=== PATIENT | male | born 1970 | race Caucasian/White ===

== ENCOUNTER 2017-06-14 15:24 | Emergency (ER) | payer BC ==
[~2017-06-14] VITALS: Ht 175.3 cm; Wt 95.3 kg
[~2017-06-14 15:24] MED LIST: CETI5TAB5 PO; FLUO20CA34 PO; IND/25 PO
[2017-06-14 15:38] VITALS: TEMP 36.8; Ht 175.3 cm; Wt 95.3 kg
[2017-06-14] MEDS ORDERED: LIDOCAINE 1% BUFFERED INJ 5 ML VIAL INFIL ONE (16:00)
[2017-06-14] MEDS ORDERED: DIPHTHERIA/TETANUS/PERTUSSIS 0.5 ML SYR/VIAL IM. ONE (16:00)
[2017-06-14] MEDS ORDERED: BUPIVACAINE 0.5 % 5 MG/1 ML MPF 30ML VIAL INFIL ONE (16:00)
[2017-06-14] MEDS ORDERED: ALL300 PO (16:05)
[2017-06-14] MEDS ORDERED: LEVO75TA5 PO (16:05)
[2017-06-14] MEDS ORDERED: MELO7.5T5 PO (16:05)
[2017-06-14] MEDS ORDERED: CHOL2000 PO (16:07)
[2017-06-14] MEDS ORDERED: MELATAB2 PO (16:07)
[2017-06-14] MEDS ORDERED: CYAN500T PO (16:07)
[2017-06-14] MEDS ORDERED: MAGN400T6 PO (16:08)
[2017-06-14] MEDS ORDERED: CEFTRIAXONE SOD INJ 1 GM ADDVIAL IV STA (16:39)
--- NOTE | 2017-06-14 16:39 | EMERGENCY ROOM VISIT NOTE ---
History First contact with patient: 15:45 Chief Complaint: FOREIGNBODY ANY BODY PART Stated Complaint: BOARD THROUGH THUMB History of Present Illness The patient is a 47 year old male who presents to the Emergency Room with complaints of a piece of wood going through his left thumb prior to arrival. The patient was working with a circular table saw when a piece of wood flew off striking him in the left thumb. He has tried to remove many splinters from the area. He denies any significant pain. He does complain of some numbness and tingling towards the distal aspect of his left thumb. The patient is left- handed. He denies any other injuries. He knows his tetanus shot is not up-to- date. Review of Systems 6 system review negative. Please see pertinent positives in the history of present illness section. Past Medical/Surgical History Hypothyroidism, gout Social History Smoking Status: Never Smoker Alcohol Use: occasionally Current/Historical Medications Scheduled Allopurinol (Allopurinol), 300 MG PO DAILY Cephalexin Monohydrate (Keflex), 500 MG PO QID Cholecalciferol (Vitamin D3), 1 CAP PO DAILY Cyanocobalamin (Vitamin B-12), 500 MCG PO DAILY Levothyroxine Sodium (Levothyroxine Sodium), 75 MCG PO DAILY Magnesium Oxide (Mag-Ox), 400 MG PO DAILY Melatonin (Melatonin Maximum Strengt), 5 MG PO HS Meloxicam (Mobic), 7.5 MG PO DAILY Physical Exam Vital Signs Date Time Temp Pulse Resp B/P (MAP) Pulse Ox O2 Delivery O2 Flow Rate FiO2 06/14/17 18:20 75 16 101/76 98 06/14/17 17:23 60 20 115/76 97 Room Air 06/14/17 15:38 36.8 64 20 135/89 97 Room Air Physical Exam VITALS: Vitals are noted on the nurse's note and reviewed by myself. Vital signs stable. GENERAL: 47-year-old male, in no acute distress, nondiaphoretic, well-developed well-nourished. HEAD: Normocephalic atraumatic. EYES: Conjunctivae without injection, sclerae without icterus. Extraocular movements intact. MUSCULOSKELETAL: RIGHT HAND: There is a 1 cm macerated puncture wound noted to the dorsal aspect of the left thumb. There is a 0.5 macerated exit wound noted on the contralateral side. There is no active bleeding. Full flexion and extension of the thumb. Sensation is intact. Capillary refill is less than 2 seconds. NEURO: Patient was alert and oriented to person place and time. Normal sensation to touch. No focal neurological deficits. Medical Decision & Procedures ER Provider Diagnostic Interpretation: Thumb xray IMPRESSION: Mild soft tissue swelling without fracture. The above report was generated using voice recognition software. It may contain grammatical, syntax or spelling errors. Electronically signed by: Jayesh Huff M.D. Medications Administered Medications (Trade) Dose Ordered Sig/Morgan Route Start Time Stop Time Status Last Admin Dose Admin Diphtheria/ Pertussis/Tetanus Vacc (Adacel Inj) 0.5 ml ONCE ONCE IM. 06/14/17 16:00 06/14/17 16:01 DC 06/14/17 16:00 0.5 ML Ceftriaxone Sodium (Rocephin Inj) 1 gm NOW STAT IV 06/14/17 16:39 06/14/17 16:42 DC 06/14/17 17:22 1 GM Procedure The physician assistant field hockey coach student explored and cleansed the wound under my direct supervision in the following manner Using lidocaine and Marcaine, a digital block was performed. Sterile field was achieved. The area was thoroughly cleansed. Was copiously irrigated with normal saline under pressure. 1 0.5 cm piece of wood was extracted from the wound. The patient tolerated the procedure well. The wound was not closed. A dressing was applied. ED Course Patient was seen and examined Vital signs including blood pressure were reviewed medications list was verified with patient A saline lock was established Imaging was performed and reviewed The patient was ordered 1 g of Rocephin IV The wound was thoroughly cleansed. Please see my procedure note. The patient was given a bandage. He tolerated the procedure well. I reviewed discharge instructions the patient. They voiced understanding and had no further questions. Medical Decision Differential diagnosis: Foreign body, fracture, wound infection, laceration This patient is a 47-year-old male that presents to the emergency department after having a piece of wood to go through his left thumb. The patient is left- handed dominant. On exam he had an entry wound and exit wound in the thumb. He was neurovascularly intact. Flexion and extension was intact. X-rays were performed. No fractures were noted. The wound was explored. One small foreign body was extracted. The area was copiously irrigated. The patient was given 1 g of Rocephin for prophylactic antibiotics. The wound was left open to prevent infection. The patient was discharged home with a course of Keflex. He will watch for signs of infection, and have the wound rechecked in the next few days. He was comfortable with this plan This chart was completed in part utilizing [employer] Speech Voice Recognition software. Attempts were made to minimize the grammatical errors, random word insertions, pronoun errors and incomplete sentences. Any formal questions or concerns about the content, text or information contained within the body of this dictation should be directly addressed to the provider for clarification. Medication Reconcilliation Current Medication List: was personally reviewed by me Blood Pressure Screening Patient's blood pressure: Elevated blood pressure Blood pressure disposition: Elevated BP felt to be situational Impression Primary Impression: Puncture wound of hand with foreign body Departure Information Dispostion Home / Self-Care Condition GOOD Prescriptions Cephalexin Monohydrate (Keflex) 500 Mg Cap 500 MG PO QID for 7 Days, #28 CAP Prov: Sara Farfan PA-C 06/14/17 Referrals Zi Arce M.D. (MEDICAL) (PCP) Jose De Jesus Pedroza MD Patient Instructions My [facility] Additional Instructions You have been seen in the emergency department today for a possible foreign body in your left hand. The wound was thoroughly cleaned. Please take the ENTIRE course of Keflex as prescribed. This is to prevent infection. Please note that this wound is at high risk for infection. Please clean the hand twice daily with soap and water. It is okay to leave it open to air. You may take Tylenol and/or ibuprofen every 6 hours as needed for pain. Please have the wound rechecked in 3-5 days by a primary care physician. If there are any concerns, do not hesitate to call the hand surgeon. A number has been provided for Dr. Pedroza Please return to the emergency department with any new, worsening or concerning symptoms; especially, increased redness, swelling, pain or fever It was a pleasure participating in your care today
--- NOTE | 2017-06-14 16:45 | DIAGNOSTIC IMAGING REPORT ---
L FINGER(S) MIN 2 VIEWS ROUTINE HISTORY: 47 years-old Male L thumb injury acute pain of the left thumb status post trauma COMPARISON: None available TECHNIQUE: 3 views of the left thumb FINDINGS: Mild degenerative changes about the first carpal metacarpal joint. There is no acute fracture, dislocation or opaque foreign body. Mild soft tissue swelling of the first digit. IMPRESSION: Mild soft tissue swelling without fracture. The above report was generated using voice recognition software. It may contain grammatical, syntax or spelling errors. Electronically signed by: Jayesh Huff M.D. 06/14/2017 4:44 PM Dictated Date/Time: 06/14/2017 4:42 PM
[2017-06-14] MEDS ORDERED: CEPH500C PO (17:45)
[2017-06-14 18:20] VITALS: BP 101/76; PULSE 75; O2SAT 98
== END 2017-06-14 18:21 | disposition home or self-care (01) ==
LOC: C.EDB 15:26 → C.EDD 18:21
DX: S61.042A Puncture wound with foreign body of left thumb without damage to nail, initial encounter (principal); W22.8XXA Striking against or struck by other objects, initial encounter; Z79.899 Other long term (current) drug therapy

== ENCOUNTER 2018-07-23 18:40 | Inpatient (IN) ==
[2018-07-23] MEDS ORDERED: KETOROLAC 30 MG/ML VIAL IV ONE (18:54)
[2018-07-23] MEDS ORDERED: SODIUM CHLORIDE 0.9% 1000ML 1,000 ML IV SCH ×2 (19:00→23:21)
[2018-07-23 19:15] LABS: Basophils # (auto) 0.03 K/uL (0-0.2); Basophils % (auto) 0.3 %; Eosinophils # (auto) 0.16 K/uL (0-0.5); Eosinophils % (auto) 1.5 %; Hematocrit (blood only) 47.2 % (42-52); Hemoglobin 16.6 g/dL (14.0-18.0); Immature Granulocytes # (auto) 0.02 K/uL (0.00-0.02); Immature Granulocytes % (auto) 0.2 %; Lymphocytes # (auto) 1.24 K/uL (1.2-3.4); Lymphocytes % (auto) 11.3 %; Mean Corpuscular Hgb Conc 35.2 g/dL (32-36); Mean Corpuscular Volume 87.1 fL (80-100); Mean Platelet Volume 10.5 fL (7.4-10.4); Monocytes # (auto) 0.79 K/uL (0.11-0.59); Monocytes % (auto) 7.2 %; Neutrophils # (auto) 8.76 K/uL (1.4-6.5); Neutrophils % (auto) 79.5 %; Platelet Count 217 K/uL (130-400); RDW Coefficient of Variation 13.1 % (11.5-14.5); RDW Standard Deviation 41.7 fL (36.4-46.3); Red Blood Count 5.42 M/uL (4.7-6.1)
--- NOTE | 2018-07-23 19:25 | XRay Report ---
XR chest 1V portable CLINICAL HISTORY: 48 years-old Male presenting with left chest Pain. TECHNIQUE: Portable upright AP view of the chest was obtained. COMPARISON: Chest x-ray from 12/17/2011. FINDINGS: Atherosclerosis of the aortic arch. Cardiac silhouette normal in size. Ulnar vascular prominence. Mil dly low lung volumes. Vascular crowding at the lung bases. Minimal basilar opacities. No pleural effu joo or pneumothorax. Degenerative changes of the thoracic spine. Upper abdomen normal. IMPRESSION: 1. Mild volume overload. 2. Multilobular lung volumes with hypoventilatory changes and minimal bibasilar atelectasis. Electronically signed by: Michael Mendoza M.D. 07/23/2018 7:23 PM
[2018-07-23 19:31] LABS: Alanine Aminotransferase 27 U/L (12-78); Albumin Level 4.5 gm/dl (3.4-5.0); Aspartate Aminotransferase 19 U/L (15-37); BUN Creatinine Ratio 14.5 (10-20); Blood Urea Nitrogen 18 mg/dl (7-18); Calcium 9.4 mg/dl (8.5-10.1); Carbon Dioxide 30 mmol/L (21-32); Chloride 101 mmol/L (98-107); Creatinine Clr Calc Pharmacy 81.2 ml/min; Glucose 95 mg/dl (70-99); Potassium 4.2 mmol/L (3.5-5.1); Sodium 139 mmol/L (136-145)
[2018-07-23 19:36] LABS: Albumin Globulin Ratio 1.2 (0.9-2); Alkaline Phosphatase 61 U/L (45-117); Bilirubin,Total 0.6 mg/dl (0.2-1); Globulin 3.7 gm/dl (2.5-4.0); Total Protein 8.2 gm/dl (6.4-8.2); Troponin I < 0.015 ng/ml (0-0.045)
[2018-07-23] MEDS ORDERED: SODIUM CHLORIDE 0.9% 1000ML 2,000 ML IV ONE (19:44)
[2018-07-23] MEDS ORDERED: ACETAMINOPHEN 500 MG TAB PO STA (19:44)
[2018-07-23] MEDS ORDERED: OPTIRAY 320 125ml IV PRN (19:44)
--- NOTE | 2018-07-23 20:06 | CT Scan Report ---
CT angio chest PE protocol CLINICAL HISTORY: 48 years-old Male presenting with left-sided chest pain, pleuritic chest pain, diff iculty breathing. TECHNIQUE: Multidetector CT angiography of the chest was performed after administration of intravenou s contrast. 3-D volumetric and/or maximum intensity projection (MIP) images were subsequently reconst ructed for review. IV contrast: 119 mL of Optiray 320. One or more dose lowering techniques were used consistent with the principles of ALARA (as low as reasonably achievable), including automatic expos ure control, mA or kV adjustment to individual patient size, and/or use of iterative reconstruction. COMPARISON: Contrast-enhanced CT chest from 04/10/2018. CT DOSE (mGy.cm): The estimated cumulative dose is 440.32 mGy.cm. FINDINGS: Computer Peripheral Equipment Operator topogram: Unremarkable. Pulmonary vasculature: The study is suboptimal for the assessment of the pulmonary vascular tree secondary to timing of the contrast bolus and respiratory motion artifact. No filling defect within the pulmonary arteries to franco ggest embolus. Streak artifact in the right upper lobe pulmonary artery results in a pseudofilling de fect. Main pulmonary artery is not enlarged. No flattening of the interventricular septum. No intraca rdiac filling defect. No reflux of contrast into the hepatic veins. Remaining chest: Soft tissues: Normal thyroid. Infiltration of the subcutaneous tissue of the right axilla, noticeably asymmetric in comparison to the left. No axillary, supraclavicular, mediastinal, or hilar lymphadeno juan c. Normal aorta. Normal heart size. No pericardial or pleural effusion. Upper abdomen normal. Lungs and airways: No pneumothorax. Central airways patent. Pulmonary arteries are not significantly enlarged relative to adjacent bronchi. No interlobular septal thickening. Multifocal solid poorly mar ginated moderate nodules (over 10). The largest is located in the posterior segment of the left upper lobe and is cavitary. This cavitary lesion measures 10 mm in diameter with a wall thickness of 3 mm. There is faint groundglass opacity surrounding many of the larger lesions. These affect both upper a nd lower lobes sparing the right middle lobe. Musculoskeletal: Degenerative changes of the spine. IMPRESSION: 1. Multiple solid poorly marginated nodules (at least 10) scattered throughout the lungs the largest nodule in the left upper lobe, which is cavitary. This is new from prior exam. The appearance raises concern for septic emboli, cavitary metastatic disease, fungal infection, Tammy's granulomatosis, or rheumatoid nodules among other diagnostic considerations. 2. No evidence of pulmonary emboli. 3. Infiltration of the right axilla raises concern for cellulitis. Correlate clinically. Electronically signed by: Michael Mendoza M.D. 07/23/2018 8:03 PM
[2018-07-23] MEDS ORDERED: VANCOMYCIN CONSULT ACTIVE PRN ×2 (20:13→23:21)
[2018-07-23] MEDS ORDERED: VANCOMYCIN HCL 2,250 MG in SODIUM CHLORIDE 0.9% 500 ML IV ONE (20:13)
[2018-07-23] MEDS ORDERED: CEFEPIME 1,000 MG in SYRINGE 0 ML IV STA (20:13)
--- NOTE | 2018-07-23 21:19 | History & Physical Report ---
Date of Service July 23, 2018 Assessment & Plan (1) Cavitary lesion of lung: (2) Chest pain: This is a 48 yr old M who has a significant PMH of hypothyroidism, depression, anx, gout who presents to [facility] ED secondary to chest pain that began at 3 pm. Chest pain pleuritic in nature, improved with IV APAP and Toradol CTA Chest concerning for Multiple solid poorly marginated nodules (at least 10) scattered throughout the lungs the largest nodule in the left upper lobe, which is cavitary. This is new from prior exam. The appearance raises concern for septic emboli, cavitary metastatic disease, fungal infection, Tammy's granulomatosis, or rheumatoid nodules among other diagnostic considerations. Troponin negative and unremarkable CMP and Lipase WBC elevated at 11.00 Pt spiked fever of 38.9, but does not meet criteria for SIRS with HR 88, WBC 11k Blood cultures were drawn He received broad-spectrum IV antibiotics while in ED including IV vancomycin and cefepime Received IVF Ddx including but not limited to: lung abscess, bacteremia, endocarditis, septic embolic, TB, Vasculitis, [place], Rheumatologic condition, fungal infection admit to telemetry continue broad spectrum antibiotics with IV vancomycin and Zosyn Obtain MRSA swab Await blood culture Consult pulmonology given cavitary lesion Placed on airborne precautions until TB ruled out -given fever, cough, 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 Check Lactic acid/procalcitonin obtain echocardiogram, r/o endocarditis IV toradol 30mg q6hr prn pain x 48hr (3) Carbuncle of right axilla: Continue IV antibiotics as above await blood cultures/MRSA swab (4) Hypothyroidism: Pt has not taken levothyroxine for several weeks uncertain dosage of medication obtain TSH with t4 (5) DVT prophylaxis: SCDS and ambulation for now reassess on daily basis need for chemical prophylaxis Disposition: D/C to home when able Follow up: Belen Uribe PA-C upon discharge Patient was seen and examined in collaboration with Dr. Monzon, please see addendum Starting 07/24/18 patient will be under the care of Dr. Chavis History of Present Illness Chief Complaint: Chest pain since 3pm Primary Care Provider: Belen Uribe PA-C This is a 48 yr old M who has a significant PMH of hypothyroidism, depression, anx, gout who presents to [facility] ED secondary to chest pain that began at 3 pm. Patient was at work when symptoms started. Abrupt onset of sharp left sided chest pain that radiated to L axillary region, sharp, 10/10, worse with deep breath and cough, improved with ASA and ibuprofen. Never experienced in past. Current pain 3/10. Further complains of feeling feverish, chills, lightheaded, dizzy, non productive cough that started today. He elicits dizziness and lightheaded are not, "abnormal for me." Overall past week has just not been feeling well, general malaise, attributed to working alot. Further complains of lesions in arm pit that are red and painful. Noticed yesterday. Hx of similar lesion in December, R jameel, tx with doxycycline and resolved. +hx of MRSA. Denies sweats, night sweats, weight loss, hemoptysis, sob at rest, shelley, n/v/d, change in bowel or urinary habits. Appetite has been normal. 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 Last travel was to [place] in March. He does not take any of his medications, stopped them few months ago including his thyroid medication. Denies FH of rheumatologic conditions, Lung disease, Lung cancer. Denies personal hx of drug abuse or IVDA. Allergies Allergy/AdvReac Type Severity Reaction Status Date / Time Penicillins Allergy Unknown ` Verified 07/23/18 20:57 Home Medications Home Medications Medication Instructions Recorded Confirmed Type levothyroxine 50 mcg PO DAILY 07/23/18 07/23/18 History Past Med/Surg History Medical History Cavitary lesion of lung (Acute) Depression (Chronic) Anxiety (Chronic) Hypothyroidism (Chronic) Gout (Chronic) Surgical History History of tonsillectomy and adenoidectomy (Chronic) History of bilateral tympanoplasty (Chronic) Family History Other Unknown family medical history Social History Preferred Language: Estonian Communication Ability: Effective Hangar Attendant Required: No Beliefs That Will Affect Care: None marital status: Single marital status details: Engaged Current Living Situation: Other Current Living Situation Comment: Lives with meli current occupational status: employed current occupation: [employer] Feels Safe at Home: Yes Safety Concerns: Feels Safe At This Time Smoking Status: Never smoker Tobacco Type: smokeless tobacco Hx Alcohol Use: Yes Alcohol type: beer Alcohol Intake Frequency Comment: "Worse case is a case of beer a week, last drink yesterday 2 beers" Hx Substance Use: No Review of Systems Review of Systems: As noted per HPI, 10 systems reviewed and negative unless noted above. Physical Exam Physical Exam: Gen: WD/WN, M, Flushed, appears in pain, NAD, sitting up in bed, blunted affect, conversing easily Head: Normocephalic, Atraumatic Eyes: Sclera normal, no conjunctival injection, PERRLA, EOMI ENT: Gross hearing intact, normal pharynx, mucous membranes moist Neck: supple, no adenopathy, No JVD, no bruit, Resp: Clear to auscultation b/l, no wheeze, rales, rhonchi. Normal insp/exp effort, no accessory muscle use CV: Regular rate, regular rhythm, 1/6 MELISSA heard RUSB, no rub, gallop, or ectopy Abd: +BS x 4, soft, nontender, nondistended Musculoskeletal: moves extremities active rom x 4, strength intact, good supervisor powdered sugar strength Extremities: No edema bilaterally Skin: warm, moist, 2 papular erythematous lesions to R axilla, tender to palpation, firm, no adenopathy noted, no rash, negative turgor, cap refill < 2sec Neuro: Alert and oriented x 3, speech normal, good mood/affect, cran nerve 2-12 intact grossly : deferred Results & Data Vital Signs (Past 12 Hours) Vital Signs Temp Pulse Pulse Resp BP BP Pulse Ox 07/23/18 20:02 90 20 116/68 95 07/23/18 19:34 97 07/23/18 19:33 38.9 C H 07/23/18 18:42 37.7 C H 91 H 22 151/93 H 91 Laboratory Results Short CBC 07/23/18 Range/Units 19:05 WBC 11.00 H (4.8-10.8) K/uL Hgb 16.6 (14.0-18.0) g/dL Hct 47.2 (42-52) % Plt Count 217 (130-400) K/uL BMP 07/23/18 19:05 Sodium 139 Potassium 4.2 Chloride 101 Carbon Dioxide 30 BUN 18 Creatinine 1.23 Glucose 95 Calcium 9.4 Cardiac Enzymes 07/23/18 Range/Units 19:05 Troponin I < 0.015 (0-0.045) ng/ml Liver Function 07/23/18 Range/Units 19:05 Total Bilirubin 0.6 (0.2-1) mg/dl AST 19 (15-37) U/L ALT 27 (12-78) U/L Alkaline Phosphatase 61 (45-117) U/L Albumin 4.5 (3.4-5.0) gm/dl Diagnostic Findings Chest CTA: IMPRESSION: 1. Multiple solid poorly marginated nodules (at least 10) scattered throughout the lungs the largest nodule in the left upper lobe, which is cavitary. This is new from prior exam. The appearance raises concern for septic emboli, cavitary metastatic disease, fungal infection, Tammy's granulomatosis, or rheumatoid nodules among other diagnostic considerations. 2. No evidence of pulmonary emboli. 3. Infiltration of the right axilla raises concern for cellulitis. Correlate clinically. CXR: IMPRESSION: 1. Multiple solid poorly marginated nodules (at least 10) scattered throughout the lungs the largest nodule in the left upper lobe, which is cavitary. This is new from prior exam. The appearance raises concern for septic emboli, cavitary metastatic disease, fungal infection, Tammy's granulomatosis, or rheumatoid nodules among other diagnostic considerations. 2. No evidence of pulmonary emboli. 3. Infiltration of the right axilla raises concern for cellulitis. Correlate clinically. Medications Administered Sodium Chloride (Nss 1000ml) 2,000 mls @ 999 mls/hr IV .Q2H1M ONE Stop: 07/23/18 21:44 Last Admin: 07/23/18 19:59 Dose: 999 mls/hr Documented by: [id number] Ioversol (Optiray 320 125ml) 119 ml IV ONCE PRN PRN Reason: Interaction Checking Stop: 07/27/18 19:43 Last Admin: 07/23/18 19:45 Dose: 119 ml Documented by: [id number] Discontinued Medications Acetaminophen (Tylenol) 1,000 mg PO NOW STA Stop: 07/23/18 19:45 Last Admin: 07/23/18 19:57 Dose: 1,000 mg Documented by: [id number] Sodium Chloride (Nss 1000ml) 1,000 mls @ 999 mls/hr IV .Q1H1M HÉCTOR Stop: 07/23/18 20:00 Last Infusion: 07/23/18 20:46 Dose: 0 mls/hr Documented by: [id number] Admin: 07/23/18 19:13 Dose: 999 mls/hr Documented by: [id number] Ketorolac Tromethamine (Toradol) 30 mg IV NOW ONE Stop: 07/23/18 18:55 Last Admin: 07/23/18 19:12 Dose: 30 mg Documented by: [id number] Code Status & VTE Plan Code Status Full Code VTE Prophylaxis Plan VTE Prophylaxis will be ordered: Yes Supervising Physician Co-Signing Physician Notes Care coordinated with Lewis Barrett PA-C. Agree with above note. Patient seen and examined. Please refer to her notes for full details. Vital signs reviewed. Physical exam: General exam: Alert and oriented. Not in acute distress. CVS: S1 and S2 heard, regular rate and rhythm, no murmurs. RS: Clear to auscultation, no wheezing or crackles. ABD: Soft, bowel sounds present, nontender, no distention. SERVICING MANAGER: Nonfocal. EXT: No edema, no erythema. Labs: Reviewed. Assessment and plan:48M presents with pleuritic like chest pain, spiking temp in Er, Mild elevation of WBC, Has pimple like lesions in right axilla, hx of MRSA infection in the past, CT chest showing multiple cavitary nodules. Chest pain Multiple cavitary nodules carbuncles in right axilla hx of mrsa infections septic emboli? Jerrica's granulomatosis? no nasal blled or hematuria Fungal infection? Recent ct scan in april was unremarkable empirically started on iv vanco and cefepime will follow cultures Will check, RF, ANCA, KEVIN levels Pulmonary consult Other diagnosis and plan of care as per []. Brad power MD.
[2018-07-23] MEDS ORDERED: POLYETHYLENE (MIRALAX) 17 GM PACK PO PRN (23:21)
[2018-07-23] MEDS ORDERED: ONDANSETRON INJ 2 MG/ML 2 ML VIAL IV PRN (23:21)
[2018-07-23] MEDS ORDERED: MAGNESIUM HYDROXIDE SUSP 30 ML UDC PO PRN (23:21)
[2018-07-23] MEDS ORDERED: ALUMINUM/MAGNESIUM SUSP 30 ML UDC PO PRN (23:21)
--- NOTE | 2018-07-23 23:27 | Emergency Department Note ---
Entered by Di Nunez acting as a scribe for Keanu Canales DO History of Present Illness General Chief complaint: Chest Pain Stated complaint: SHARP PAIN IN LEFT SIDE, CHEST PAIN, LIGHT HEADED Source: patient History of Present Illness Provider complaint: chest pain Onset (ago): hour(s) 6 Location: chest and left Radiation: distal Pain Consistency: + other (worsening) Maximum Pain Intensity: 8 Relieved By: + rest Exacerbated By: + other (breathing) Associated symptoms: + other (+lightheaded, -problems urinating, -diarrhea); no nausea/vomiting The patient is a 48 year old male who presents to the Emergency Room with compla ints of worsening chest pain. The patient states that he has had pain in his chest that has radiated to his left shoulder. He reports that he pain started at 1400 today while he was just talking. The patient notes that he has not had any prior similar episodes. He states that deep breathing worsens the pain. He states that sitting down alleviates the pain mildly. He reports that he is lightheaded, but denies any symptoms of nausea, vomiting, or diarrhea. The patient denies any problems urinating. He states that he does not smoke. He denies any recent travel. He denies any drug use. Patient does also complain of pain in his right axilla and 2 areas of erythema. History of MRSA. Home Medications Home Medications Medication Instructions Recorded Confirmed Type levothyroxine 50 mcg PO DAILY 07/23/18 07/23/18 History Allergies Allergy/AdvReac Type Severity Reaction Status Date / Time Penicillins Allergy Unknown ` Verified 07/23/18 20:57 Past Med/Surg History Medical History Cavitary lesion of lung (Acute) Depression (Chronic) Anxiety (Chronic) Hypothyroidism (Chronic) Gout (Chronic) Surgical History History of tonsillectomy and adenoidectomy (Chronic) History of bilateral tympanoplasty (Chronic) Family History Other Unknown family medical history Social History Preferred Language: Malaysian Communication Ability: Effective marital status: Single marital status details: Engaged Current Living Situation: Other Current Living Situation Comment: Lives with meli current occupational status: employed current occupation: [employer] Feels Safe at Home: Yes Smoking Status: Current every day smoker Tobacco Type: smokeless tobacco Hx Alcohol Use: Yes Alcohol type: beer Alcohol Intake Frequency Comment: "Worse case is a case of beer a week, last drink yesterday 2 beers" Hx Substance Use: No Review of Systems See HPI for pertinent positives & negatives. and A total of 10 systems reviewed and were otherwise negative Physical Exam Vital Signs Vital Signs - 24 hr 07/23/18 18:42 07/23/18 18:57 07/23/18 18:59 Temperature 37.7 C H Temperature Source Oral Sepsis Recent Fever Within 48 Hours No Sepsis New/Unexplained Change in Mental Status No Sepsis Action Taken by Nursing No Action Required Pulse Rate 91 H 90 88 Pulse Rate [Apical] Pulse Rate from SpO2 Sensor 90 88 Respiratory Rate 22 24 41 H Blood Pressure 151/93 H 144/86 H Blood Pressure [Left Arm] Blood Pressure Mean 112 105 Blood Pressure Mean [Left Arm] Pulse Oximetry 91 96 97 Oxygen Delivery Method Room Air 07/23/18 19:00 07/23/18 19:10 07/23/18 19:20 Temperature Temperature Source Sepsis Recent Fever Within 48 Hours Sepsis New/Unexplained Change in Mental Status Sepsis Action Taken by Nursing Pulse Rate 88 93 H 91 H Pulse Rate [Apical] Pulse Rate from SpO2 Sensor 88 93 H 90 Respiratory Rate 41 H 29 H 38 H Blood Pressure 140/90 Blood Pressure [Left Arm] Blood Pressure Mean 106 Blood Pressure Mean [Left Arm] Pulse Oximetry 97 94 97 Oxygen Delivery Method 07/23/18 19:30 07/23/18 19:33 07/23/18 19:34 Temperature 38.9 C H Temperature Source Oral Sepsis Recent Fever Within 48 Hours Sepsis New/Unexplained Change in Mental Status Sepsis Action Taken by Nursing Pulse Rate 89 Pulse Rate [Apical] Pulse Rate from SpO2 Sensor 88 Respiratory Rate 19 Blood Pressure 140/76 Blood Pressure [Left Arm] Blood Pressure Mean 97 Blood Pressure Mean [Left Arm] Pulse Oximetry 97 97 Oxygen Delivery Method Room Air 07/23/18 19:52 07/23/18 20:00 07/23/18 20:02 Temperature Temperature Source Sepsis Recent Fever Within 48 Hours Sepsis New/Unexplained Change in Mental Status Sepsis Action Taken by Nursing Pulse Rate 89 92 H Pulse Rate [Apical] 90 Pulse Rate from SpO2 Sensor 90 91 H Respiratory Rate 24 27 H 20 Blood Pressure 132/76 116/68 Blood Pressure [Left Arm] 116/68 Blood Pressure Mean 94 84 Blood Pressure Mean [Left Arm] 84 Pulse Oximetry 95 96 95 Oxygen Delivery Method Room Air 07/23/18 20:10 07/23/18 20:20 07/23/18 20:30 Temperature Temperature Source Sepsis Recent Fever Within 48 Hours Sepsis New/Unexplained Change in Mental Status Sepsis Action Taken by Nursing Pulse Rate 90 89 90 Pulse Rate [Apical] Pulse Rate from SpO2 Sensor 89 91 H 91 H Respiratory Rate 25 H 24 25 H Blood Pressure Blood Pressure [Left Arm] Blood Pressure Mean Blood Pressure Mean [Left Arm] Pulse Oximetry 97 96 96 Oxygen Delivery Method 07/23/18 20:40 Temperature Temperature Source Sepsis Recent Fever Within 48 Hours Sepsis New/Unexplained Change in Mental Status Sepsis Action Taken by Nursing Pulse Rate 94 H Pulse Rate [Apical] Pulse Rate from SpO2 Sensor Respiratory Rate 27 H Blood Pressure Blood Pressure [Left Arm] Blood Pressure Mean Blood Pressure Mean [Left Arm] Pulse Oximetry Oxygen Delivery Method GENERAL: sitting up in bed, moderately distress, holding chest, non-toxic EYE EXAM: normal conjunctiva, PERRL and EOM's grossly intact OROPHARYNX: no exudate, no erythema, lips, buccal mucosa, and tongue normal and mucous membranes are moist NECK: supple, no nuchal rigidity, no adenopathy, non-tender LUNGS: Clear to auscultation. Normal chest wall mechanics HEART: acute reproducible chest wall pain, no murmurs, S1 normal and S2 normal ABDOMEN: abdomen soft, non-tender, normo-active bowel sounds, no masses, no rebound or guarding. BACK: Back is symmetrical on inspection and there is no deformity, no midline tenderness, no CVA tenderness. SKIN: no rashes and no bruising UPPER EXTREMITIES: right axilla 2 areas of erythema and induration LOWER EXTREMITIES: No pitting edema. NEURO EXAM: Normal sensorium, cranial nerves II-XII grossly intact, normal speech, no gross weakness of arms, no gross weakness of legs. Course 1846: The patient was evaluated in room C6, and a complete history and physical examination were performed. 2020: I reviewed the patient's case with Dr. Shahrzad Koch Hospitalist. He will evaluate the patient for further management. Consultations [facility]: [facility]:20 Administered Medications Ioversol (Optiray 320 125ml) 119 ml IV ONCE PRN PRN Reason: Interaction Checking Stop: 07/27/18 19:43 Last Admin: 07/23/18 19:45 Dose: 119 ml Documented by: [id number] Discontinued Medications Acetaminophen (Tylenol) 1,000 mg PO NOW STA Stop: 07/23/18 19:45 Last Admin: 07/23/18 19:57 Dose: 1,000 mg Documented by: [id number] Sodium Chloride (Nss 1000ml) 1,000 mls @ 999 mls/hr IV .Q1H1M HÉCTOR Stop: 07/23/18 20:00 Last Infusion: 07/23/18 20:46 Dose: 0 mls/hr Documented by: [id number] Admin: 07/23/18 19:13 Dose: 999 mls/hr Documented by: [id number] Sodium Chloride (Nss 1000ml) 2,000 mls @ 999 mls/hr IV .Q2H1M ONE Stop: 07/23/18 21:44 Last Admin: 07/23/18 19:59 Dose: 999 mls/hr Documented by: [id number] Cefepime HCl 1,000 mg/ Syringe 11.3 mls @ 5.5 mls/min IV NOW STA; Protocol Stop: 07/23/18 20:15 Last Admin: 07/23/18 21:30 Dose: 5.5 mls/min Documented by: [id number] Vancomycin HCl 2,250 mg/ (Sodium Chloride) 545 mls @ 200 mls/hr IV NOW ONE; Protocol Stop: 07/23/18 22:56 Last Admin: 07/23/18 21:30 Dose: 200 mls/hr Documented by: [id number] Ketorolac Tromethamine (Toradol) 30 mg IV NOW ONE Stop: 07/23/18 18:55 Last Admin: 07/23/18 19:12 Dose: 30 mg Documented by: [id number] Medical Decision Making Differential Diagnosis Differential diagnosis: Etiologies such as cardiac ischemia, aortic dissection, pulmonary embolism, pneumonia, pneumothorax, musculoskeletal, infections, pericarditis, myocarditis, esophageal rupture, gastrointestinal, as well as others were entertained. Medical Records Attestation: I reviewed the patient's medical records. Home Medications Current Medication List: was personally reviewed by me Laboratory Data Attestation: I reviewed the patient's lab results. Result diagrams: 07/23/18 19:05 07/23/18 19:05 Lab Results 07/23/18 07/23/18 07/23/18 Range/Units 19:05 19:05 19:05 WBC 11.00 H (4.8-10.8) K/uL RBC 5.42 (4.7-6.1) M/uL Hgb 16.6 (14.0-18.0) g/dL Hct 47.2 (42-52) % MCV 87.1 (80-100) fL MCH 30.6 (25-34) pg MCHC 35.2 (32-36) g/dL RDW Std Deviation 41.7 (36.4-46.3) fL RDW Coeff of Richar 13.1 (11.5-14.5) % Plt Count 217 (130-400) K/uL MPV 10.5 H (7.4-10.4) fL Immature Gran % (Auto) 0.2 % Neut % (Auto) 79.5 % Lymph % (Auto) 11.3 % Orange % (Auto) 7.2 % Eos % (Auto) 1.5 % Baso % (Auto) 0.3 % Immature Gran # (Auto) 0.02 (0.00-0.02) K/uL Neut # (Auto) 8.76 H (1.4-6.5) K/uL Lymph # (Auto) 1.24 (1.2-3.4) K/uL Orange # (Auto) 0.79 H (0.11-0.59) K/uL Eos # (Auto) 0.16 (0-0.5) K/uL Baso # (Auto) 0.03 (0-0.2) K/uL Sodium 139 (136-145) mmol/L Potassium 4.2 (3.5-5.1) mmol/L Chloride 101 (98-107) mmol/L Carbon Dioxide 30 (21-32) mmol/L Anion Gap 9.0 (3-11) BUN 18 (7-18) mg/dl Creatinine 1.23 (0.6-1.4) mg/dl Est Cr Clr Drug Dosing 81.2 ml/min Est GFR ( Amer) 80.0 Est GFR (Non-Af Amer) 69.0 BUN/Creatinine Ratio 14.5 (10-20) Glucose 95 (70-99) mg/dl Calcium 9.4 (8.5-10.1) mg/dl Total Bilirubin 0.6 (0.2-1) mg/dl AST 19 (15-37) U/L ALT 27 (12-78) U/L Alkaline Phosphatase 61 (45-117) U/L Troponin I < 0.015 (0-0.045) ng/ml Total Protein 8.2 (6.4-8.2) gm/dl Albumin 4.5 (3.4-5.0) gm/dl Globulin 3.7 (2.5-4.0) gm/dl Albumin/Globulin Ratio 1.2 (0.9-2) Lipase 200 (73-393) U/L Procalcitonin < 0.05 (0-0.5) ng/ml Imaging Data Radiologist's Impression: Radiology results as stated below per my review and the radiologist's interpretation: XR chest 1V portable CLINICAL HISTORY: 48 years-old Male presenting with left chest Pain. TECHNIQUE: Portable upright AP view of the chest was obtained. COMPARISON: Chest x-ray from 12/17/2011. FINDINGS: Atherosclerosis of the aortic arch. Cardiac silhouette normal in size. Ulnar vascular prominence. Mildly low lung volumes. Vascular crowding at the lung bases. Minimal basilar opacities. No pleural effusion or pneumothorax. Degenerative changes of the thoracic spine. Upper abdomen normal. IMPRESSION: 1. Mild volume overload. 2. Multilobular lung volumes with hypoventilatory changes and minimal bibasilar atelectasis. Electronically signed by: Michael Mendoza M.D. 07/23/2018 7:[address] angio chest PE protocol CLINICAL HISTORY: 48 years-old Male presenting with left-sided chest pain, pleuritic chest pain, difficulty breathing. TECHNIQUE: Multidetector CT angiography of the chest was performed after administration of intravenous contrast. 3-D volumetric and/or maximum intensity projection (MIP) images were subsequently reconstructed for review. IV contrast: 119 mL of Optiray 320. One or more dose lowering techniques were used consistent with the principles of ALARA (as low as reasonably achievable), including automatic exposure control, mA or kV adjustment to individual patient size, and/or use of iterative reconstruction. COMPARISON: Contrast-enhanced CT chest from 04/10/2018. CT DOSE (mGy.cm): The estimated cumulative dose is 440.32 mGy.cm. FINDINGS: Signal Manager topogram: Unremarkable. Pulmonary vasculature: The study is suboptimal for the assessment of the pulmonary vascular tree secondary to timing of the contrast bolus and respiratory motion artifact. No filling defect within the pulmonary arteries to suggest embolus. Streak artifact in the right upper lobe pulmonary artery results in a pseudofilling defect. Main pulmonary artery is not enlarged. No flattening of the interventricular septum. No intracardiac filling defect. No reflux of contrast into the hepatic veins. Remaining chest: Soft tissues: Normal thyroid. Infiltration of the subcutaneous tissue of the right axilla, noticeably asymmetric in comparison to the left. No axillary, supraclavicular, mediastinal, or hilar lymphadenopathy. Normal aorta. Normal heart size. No pericardial or pleural effusion. Upper abdomen normal. Lungs and airways: No pneumothorax. Central airways patent. Pulmonary arteries are not significantly enlarged relative to adjacent bronchi. No interlobular septal thickening. Multifocal solid poorly marginated moderate nodules (over 10). The largest is located in the posterior segment of the left upper lobe and is cavitary. This cavitary lesion measures 10 mm in diameter with a wall thickness of 3 mm. There is faint groundglass opacity surrounding many of the larger lesions. These affect both upper and lower lobes sparing the right middle lobe. Musculoskeletal: Degenerative changes of the spine. IMPRESSION: 1. Multiple solid poorly marginated nodules (at least 10) scattered throughout the lungs the largest nodule in the left upper lobe, which is cavitary. This is new from prior exam. The appearance raises concern for septic emboli, cavitary metastatic disease, fungal infection, Tammy's granulomatosis, or rheumatoid nodules among other diagnostic considerations. 2. No evidence of pulmonary emboli. 3. Infiltration of the right axilla raises concern for cellulitis. Correlate clinically. Electronically signed by: Michael Mendoza M.D. 07/23/2018 8:03 PM ECG Data Attestation: I personally reviewed and interpreted this ECG as follows: Indication: chest pain Rate (beats per minute): 89 Rhythm: sinus rhythm Findings: + other (normal axis); no PVC Blood Pressure Blood Pressure Findings: Normal blood pressure MDM Narrative Patient is a 48-year-old who presents the ER for sharp left-sided chest pain which started around 2 PM. He notes he cannot take a deep breath due to the severe pain. He also admits to fevers and chills. He was febrile at 38.9 when he got here. He had a mild leukocytosis of 11,000. No significant anemia. BMP along with LFTs lactic acid troponin and bilirubin was unremarkable. Chest x- ray was unremarkable along with EKG. CT PE was performed and showed no dissection but question septic emboli with him being febrile patient was covered with IV antibiotics. Patient was given IV cefepime and vancomycin. Discussed with hospitalist patient was admitted for further work-up. Impression & Plan Septic pulmonary embolism, Cavitary lesion of lung, Chest pain, Abscess Discharge Plan Visit Data *Final* Discharge Date/Time: 07/23/18 23:01 Chief Complaint: Chest Pain Stated Complaint: SHARP PAIN IN LEFT SIDE, CHEST PAIN, LIGHT HEADED ED Provider: Keanu Canales Discharge Problem: Septic pulmonary embolism, Cavitary lesion of lung, Chest pain, Abscess Patient Disposition: Admitted As Inpatient Discharge Instructions Interventions: ED Discharge Assessment Last Done: 07/23/18 23:01 The zuleikaibe's documentation has been prepared under my direction and personally reviewed by me in its entirety. I confirm that the note above accurately reflects all work, treatment, procedures, and medical decision making performed by me.
[2018-07-24] MEDS ORDERED: CEFEPIME CONSULT ACTIVE PRN ×2 (01:34→23:21)
[2018-07-24] MEDS: KETOROLAC 30 MG/ML VIAL IV PRN ×2 (05:03→14:25)
[2018-07-24] MEDS: ACETAMINOPHEN 325 MG TAB PO PRN ×3 (05:07→20:37)
[2018-07-24] MEDS: CEFEPIME 1,000 MG in SYRINGE 0 ML IV SCH ×3 (05:08→22:58)
[2018-07-24 07:23] LABS: Basophils # (auto) 0.02 K/uL (0-0.2); Basophils % (auto) 0.2 %; Eosinophils # (auto) 0.04 K/uL (0-0.5); Eosinophils % (auto) 0.3 %; Hematocrit (blood only) 40.3 % (42-52); Hemoglobin 13.9 g/dL (14.0-18.0); Immature Granulocytes # (auto) 0.03 K/uL (0.00-0.02); Immature Granulocytes % (auto) 0.3 %; Lymphocytes % (auto) 9.6 %; Mean Corpuscular Hgb Conc 34.5 g/dL (32-36); Mean Corpuscular Volume 87.6 fL (80-100); Mean Platelet Volume 10.2 fL (7.4-10.4); Monocytes % (auto) 9.6 %; Neutrophils # (auto) 9.14 K/uL (1.4-6.5); Platelet Count 161 K/uL (130-400); RDW Coefficient of Variation 13.2 % (11.5-14.5); RDW Standard Deviation 42.4 fL (36.4-46.3); White Blood Count 11.43 K/uL (4.8-10.8)
[2018-07-24] MEDS: VANCOMYCIN HCL 1,500 MG in SODIUM CHLORIDE 0.9% 500 ML IV SCH ×2 (07:54→20:20)
[2018-07-24 07:57] LABS: BUN Creatinine Ratio 16.3 (10-20); C Reactive Protein 5.79 mg/dl (0-0.29); Calcium 7.9 mg/dl (8.5-10.1); Creatinine Clr Calc Pharmacy 96.1 ml/min; Est GFR (African American) 97.9; Est GFR (Non-African American) 84.5; Potassium 3.7 mmol/L (3.5-5.1)
--- NOTE | 2018-07-24 11:07 | Pulmonary Consultation ---
Date of Consultation July 24, 2018 Assessment & Plan (1) Cavitary lesion of lung: Patient has multiple subcentimeter nodules 1 of which is cavitary. 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 Tuberculosis is possible but much less likely. Metastatic disease is quite unlikely given that the nodules were demonstrably not present in April. He seems to have no significant risk factors for septic emboli nor does he seem ill enough for that. Recommend: 1. Await serologies already ordered. Await QuantiFERON gold 2. Bronchoscopy is not planned for today so he can be fed 3. He will need close pulmonary follow-up as an outpatient to ensure no enlargement of these lesions. 4. Pulmonary service should continue to follow him during this hospitalization. History of Present Illness Reason for Consultation: Abnormal CT scan Requesting Physician: Dr. Chavis Attending Physician: Gurjit Chavis MD History of Present Illness Patient is a 48-year-old man with no prior history of any lung disease admitted overnight with a 1 day history of left pleuritic chest pain. He was febrile in the emergency room. He has had several days of feeling fatigue weakness and malaise all of which seem to be recurrent and of long-standing duration for him. He had a CT angiogram which showed multiple subcentimeter nodules which are ill-defined, and 1 of which located in the posterior left upper lobe is pleural- based thin-walled with some cavitation. There is concern raised for tuberculosis and he is in isolation and QuantiFERON TB test is pending and I believe they are trying to collect some sputum for AFB. He had a previous CT scan of the chest in April and none of these nodules were present then which suggests that they are not neoplastic. 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 He has no history of diabetes, prolonged steroid use, use of immunosuppressive medications, or underlying neoplasm or HIV. 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 He has not had any epistaxis or sinus complaints and serum ANCA has been ordered and is pending, along with rheumatoid factor. He has developed some skin lesions in his right axilla which do not appear to be furuncles or carbuncles but may be consistent with erythema nodosum. He has a history of hypothyroidism and depression and his compliance with medications is suboptimal and intermittent. Allergies Allergy/AdvReac Type Severity Reaction Status Date / Time Penicillins Allergy Unknown ` Verified 07/23/18 20:57 Home Medications Home Medications Medication Instructions Recorded Confirmed Type levothyroxine 50 mcg PO DAILY 07/23/18 07/23/18 History Patient History Medical History Cavitary lesion of lung (Acute) Depression (Chronic) Anxiety (Chronic) Hypothyroidism (Chronic) Gout (Chronic) Surgical History History of tonsillectomy and adenoidectomy (Chronic) History of bilateral tympanoplasty (Chronic) Family History Other Unknown family medical history Social History Preferred Language: Cuban Communication Ability: Effective 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 Beliefs That Will Affect Care: None marital status: Single marital status details: Engaged Current Living Situation: Other Current Living Situation Comment: Lives with fiance current occupational status: employed current occupation: [employer] Feels Safe at Home: Yes Safety Concerns: Feels Safe At This Time Smoking Status: Never smoker Tobacco Type: smokeless tobacco Hx Alcohol Use: Yes Alcohol type: beer Alcohol Intake Frequency Comment: "Worse case is a case of beer a week, last drink yesterday 2 beers" Hx Substance Use: No Review of Systems Review of Systems: All systems reviewed & are unremarkable except as noted in HPI & below Physical Exam Physical Exam: Awake alert well-developed well-nourished no acute distress Head normocephalic atraumatic Pharynx unremarkable Dawood EOMI sclera anicteric Neck supple no JVD adenopathy or bruit, trachea midline Chest clear to auscultation bilaterally no wheezing rales cardiac regular rhythm no murmurs rubs or gallops Abdomen soft nontender normoactive bowel sounds no organomegaly no tenderness no peritoneal signs Extremities warm well perfused no cyanosis clubbing or edema Neuro nonfocal Skin no rash petechia or purpura. In the right axilla are some raised erythematous lesions that appear to be consistent with erythema nodosum Results & Data Vital Signs (Past 12 Hours) Vital Signs Temp Pulse Pulse Resp BP Pulse Ox 07/24/18 08:23 37.0 C 61 18 109/61 95 07/24/18 07:11 70 07/24/18 04:57 38.3 C H 84 18 110/71 96 07/24/18 01:35 78 07/23/18 23:18 36.5 C 76 16 101/63 95 07/23/18 22:59 108 H 18 105/61 97 Laboratory Results 07/24/18 07/24/18 07/24/18 Range/Units 07:05 07:05 07:05 WBC (4.8-10.8) K/uL RBC (4.7-6.1) M/uL Hgb (14.0-18.0) g/dL Hct (42-52) % MCV (80-100) fL MCH (25-34) pg MCHC (32-36) g/dL RDW Std Deviation (36.4-46.3) fL RDW Coeff of Richar (11.5-14.5) % Plt Count (130-400) K/uL MPV (7.4-10.4) fL Immature Gran % (Auto) % Neut % (Auto) % Lymph % (Auto) % [place] % (Auto) % Eos % (Auto) % Baso % (Auto) % Immature Gran # (Auto) (0.00-0.02) K/uL Neut # (Auto) (1.4-6.5) K/uL Lymph # (Auto) (1.2-3.4) K/uL [place] # (Auto) (0.11-0.59) K/uL Eos # (Auto) (0-0.5) K/uL Baso # (Auto) (0-0.2) K/uL ESR (0-14) mm/hr Sodium (136-145) mmol/L Potassium (3.5-5.1) mmol/L Chloride (98-107) mmol/L Carbon Dioxide (21-32) mmol/L Anion Gap (3-11) BUN (7-18) mg/dl Creatinine (0.6-1.4) mg/dl Est Cr Clr Drug Dosing ml/min Est GFR ( Amer) Est GFR (Non-Af Amer) BUN/Creatinine Ratio (10-20) Glucose (70-99) mg/dl Lactate (0.4-2.0) mmol/L Calcium (8.5-10.1) mg/dl Total Bilirubin (0.2-1) mg/dl AST (15-37) U/L ALT (12-78) U/L Alkaline Phosphatase (45-117) U/L Troponin I < 0.015 (0-0.045) ng/ml C-Reactive Protein (0-0.29) mg/dl Total Protein (6.4-8.2) gm/dl Albumin (3.4-5.0) gm/dl Globulin (2.5-4.0) gm/dl Albumin/Globulin Ratio (0.9-2) Lipase (73-393) U/L Procalcitonin (0-0.5) ng/ml TSH (0.300-4.500) uIu/ml Nasal Screen MRSA (PCR) (Negative) Rheumatoid Factor Pending KEVIN Screen Pending ANCA Pending Coccidioides Ab (ID) Pending TB Test (QFT) Gold Plus TB Test (QFT) Nil TB Test Mitogen - Nil TB Test Ag - Nil 1 TB Test Ag - Nil 2 07/24/18 07/24/18 07/24/18 Range/Units 07:05 07:05 07:05 WBC 11.43 H (4.8-10.8) K/uL RBC 4.60 L (4.7-6.1) M/uL Hgb 13.9 L (14.0-18.0) g/dL Hct 40.3 L (42-52) % MCV 87.6 (80-100) fL MCH 30.2 (25-34) pg MCHC 34.5 (32-36) g/dL RDW Std Deviation 42.4 (36.4-46.3) fL RDW Coeff of Richar 13.2 (11.5-14.5) % Plt Count 161 (130-400) K/uL MPV 10.2 (7.4-10.4) fL Immature Gran % (Auto) 0.3 % Neut % (Auto) 80.0 % Lymph % (Auto) 9.6 % [place] % (Auto) 9.6 % Eos % (Auto) 0.3 % Baso % (Auto) 0.2 % Immature Gran # (Auto) 0.03 H (0.00-0.02) K/uL Neut # (Auto) 9.14 H (1.4-6.5) K/uL Lymph # (Auto) 1.10 L (1.2-3.4) K/uL [place] # (Auto) 1.10 H (0.11-0.59) K/uL Eos # (Auto) 0.04 (0-0.5) K/uL Baso # (Auto) 0.02 (0-0.2) K/uL ESR 5 (0-14) mm/hr Sodium 141 (136-145) mmol/L Potassium 3.7 (3.5-5.1) mmol/L Chloride 113 H (98-107) mmol/L Carbon Dioxide 24 (21-32) mmol/L Anion Gap 4.0 (3-11) BUN 17 (7-18) mg/dl Creatinine 1.04 (0.6-1.4) mg/dl Est Cr Clr Drug Dosing 96.1 ml/min Est GFR ( Amer) 97.9 Est GFR (Non-Af Amer) 84.5 BUN/Creatinine Ratio 16.3 (10-20) Glucose 100 H (70-99) mg/dl Lactate (0.4-2.0) mmol/L Calcium 7.9 L D (8.5-10.1) mg/dl Total Bilirubin (0.2-1) mg/dl AST (15-37) U/L ALT (12-78) U/L Alkaline Phosphatase (45-117) U/L Troponin I (0-0.045) ng/ml C-Reactive Protein 5.79 H (0-0.29) mg/dl Total Protein (6.4-8.2) gm/dl Albumin (3.4-5.0) gm/dl Globulin (2.5-4.0) gm/dl Albumin/Globulin Ratio (0.9-2) Lipase (73-393) U/L Procalcitonin (0-0.5) ng/ml TSH (0.300-4.500) uIu/ml Nasal Screen MRSA (PCR) (Negative) Rheumatoid Factor KEVIN Screen ANCA Coccidioides Ab (ID) TB Test (QFT) Gold Plus TB Test (QFT) Nil TB Test Mitogen - Nil TB Test Ag - Nil 1 TB Test Ag - Nil 2 07/24/18 07/24/18 07/24/18 Range/Units 07:05 05:15 00:45 WBC (4.8-10.8) K/uL RBC (4.7-6.1) M/uL Hgb (14.0-18.0) g/dL Hct (42-52) % MCV (80-100) fL MCH (25-34) pg MCHC (32-36) g/dL RDW Std Deviation (36.4-46.3) fL RDW Coeff of Richar (11.5-14.5) % Plt Count (130-400) K/uL MPV (7.4-10.4) fL Immature Gran % (Auto) % Neut % (Auto) % Lymph % (Auto) % [place] % (Auto) % Eos % (Auto) % Baso % (Auto) % Immature Gran # (Auto) (0.00-0.02) K/uL Neut # (Auto) (1.4-6.5) K/uL Lymph # (Auto) (1.2-3.4) K/uL [place] # (Auto) (0.11-0.59) K/uL Eos # (Auto) (0-0.5) K/uL Baso # (Auto) (0-0.2) K/uL ESR (0-14) mm/hr Sodium (136-145) mmol/L Potassium (3.5-5.1) mmol/L Chloride (98-107) mmol/L Carbon Dioxide (21-32) mmol/L Anion Gap (3-11) BUN (7-18) mg/dl Creatinine (0.6-1.4) mg/dl Est Cr Clr Drug Dosing ml/min Est GFR ( Amer) Est GFR (Non-Af Amer) BUN/Creatinine Ratio (10-20) Glucose (70-99) mg/dl Lactate (0.4-2.0) mmol/L Calcium (8.5-10.1) mg/dl Total Bilirubin (0.2-1) mg/dl AST (15-37) U/L ALT (12-78) U/L Alkaline Phosphatase (45-117) U/L Troponin I < 0.015 (0-0.045) ng/ml C-Reactive Protein (0-0.29) mg/dl Total Protein (6.4-8.2) gm/dl Albumin (3.4-5.0) gm/dl Globulin (2.5-4.0) gm/dl Albumin/Globulin Ratio (0.9-2) Lipase (73-393) U/L Procalcitonin (0-0.5) ng/ml TSH (0.300-4.500) uIu/ml Nasal Screen MRSA (PCR) Negative (Negative) Rheumatoid Factor KEVIN Screen ANCA Coccidioides Ab (ID) TB Test (QFT) Gold Plus Pending TB Test (QFT) Nil Pending TB Test Mitogen - Nil Pending TB Test Ag - Nil 1 Pending TB Test Ag - Nil 2 Pending 07/23/18 07/23/18 07/23/18 Range/Units 22:24 19:05 19:05 WBC (4.8-10.8) K/uL RBC (4.7-6.1) M/uL Hgb (14.0-18.0) g/dL Hct (42-52) % MCV (80-100) fL MCH (25-34) pg MCHC (32-36) g/dL RDW Std Deviation (36.4-46.3) fL RDW Coeff of Richar (11.5-14.5) % Plt Count (130-400) K/uL MPV (7.4-10.4) fL Immature Gran % (Auto) % Neut % (Auto) % Lymph % (Auto) % [place] % (Auto) % Eos % (Auto) % Baso % (Auto) % Immature Gran # (Auto) (0.00-0.02) K/uL Neut # (Auto) (1.4-6.5) K/uL Lymph # (Auto) (1.2-3.4) K/uL [place] # (Auto) (0.11-0.59) K/uL Eos # (Auto) (0-0.5) K/uL Baso # (Auto) (0-0.2) K/uL ESR (0-14) mm/hr Sodium 139 (136-145) mmol/L Potassium 4.2 (3.5-5.1) mmol/L Chloride 101 (98-107) mmol/L Carbon Dioxide 30 (21-32) mmol/L Anion Gap 9.0 (3-11) BUN 18 (7-18) mg/dl Creatinine 1.23 (0.6-1.4) mg/dl Est Cr Clr Drug Dosing 81.2 ml/min Est GFR ( Amer) 80.0 Est GFR (Non-Af Amer) 69.0 BUN/Creatinine Ratio 14.5 (10-20) Glucose 95 (70-99) mg/dl Lactate 0.7 (0.4-2.0) mmol/L Calcium 9.4 (8.5-10.1) mg/dl Total Bilirubin 0.6 (0.2-1) mg/dl AST 19 (15-37) U/L ALT 27 (12-78) U/L Alkaline Phosphatase 61 (45-117) U/L Troponin I < 0.015 (0-0.045) ng/ml C-Reactive Protein (0-0.29) mg/dl Total Protein 8.2 (6.4-8.2) gm/dl Albumin 4.5 (3.4-5.0) gm/dl Globulin 3.7 (2.5-4.0) gm/dl Albumin/Globulin Ratio 1.2 (0.9-2) Lipase 200 (73-393) U/L Procalcitonin < 0.05 (0-0.5) ng/ml TSH 1.740 (0.300-4.500) uIu/ml Nasal Screen MRSA (PCR) (Negative) Rheumatoid Factor KEVIN Screen ANCA Coccidioides Ab (ID) TB Test (QFT) Gold Plus TB Test (QFT) Nil TB Test Mitogen - Nil TB Test Ag - Nil 1 TB Test Ag - Nil 2 07/23/18 Range/Units 19:05 WBC 11.00 H (4.8-10.8) K/uL RBC 5.42 (4.7-6.1) M/uL Hgb 16.6 (14.0-18.0) g/dL Hct 47.2 (42-52) % MCV 87.1 (80-100) fL MCH 30.6 (25-34) pg MCHC 35.2 (32-36) g/dL RDW Std Deviation 41.7 (36.4-46.3) fL RDW Coeff of Richar 13.1 (11.5-14.5) % Plt Count 217 (130-400) K/uL MPV 10.5 H (7.4-10.4) fL Immature Gran % (Auto) 0.2 % Neut % (Auto) 79.5 % Lymph % (Auto) 11.3 % [place] % (Auto) 7.2 % Eos % (Auto) 1.5 % Baso % (Auto) 0.3 % Immature Gran # (Auto) 0.02 (0.00-0.02) K/uL Neut # (Auto) 8.76 H (1.4-6.5) K/uL Lymph # (Auto) 1.24 (1.2-3.4) K/uL [place] # (Auto) 0.79 H (0.11-0.59) K/uL Eos # (Auto) 0.16 (0-0.5) K/uL Baso # (Auto) 0.03 (0-0.2) K/uL ESR (0-14) mm/hr Sodium (136-145) mmol/L Potassium (3.5-5.1) mmol/L Chloride (98-107) mmol/L Carbon Dioxide (21-32) mmol/L Anion Gap (3-11) BUN (7-18) mg/dl Creatinine (0.6-1.4) mg/dl Est Cr Clr Drug Dosing ml/min Est GFR ( Amer) Est GFR (Non-Af Amer) BUN/Creatinine Ratio (10-20) Glucose (70-99) mg/dl Lactate (0.4-2.0) mmol/L Calcium (8.5-10.1) mg/dl Total Bilirubin (0.2-1) mg/dl AST (15-37) U/L ALT (12-78) U/L Alkaline Phosphatase (45-117) U/L Troponin I (0-0.045) ng/ml C-Reactive Protein (0-0.29) mg/dl Total Protein (6.4-8.2) gm/dl Albumin (3.4-5.0) gm/dl Globulin (2.5-4.0) gm/dl Albumin/Globulin Ratio (0.9-2) Lipase (73-393) U/L Procalcitonin (0-0.5) ng/ml TSH (0.300-4.500) uIu/ml Nasal Screen MRSA (PCR) (Negative) Rheumatoid Factor KEVIN Screen ANCA Coccidioides Ab (ID) TB Test (QFT) Gold Plus TB Test (QFT) Nil TB Test Mitogen - Nil TB Test Ag - Nil 1 TB Test Ag - Nil 2 Medications Administered Home Medications Medication Instructions Recorded Confirmed Last Taken levothyroxine 50 mcg PO DAILY 07/23/18 07/23/18 Unknown Active Medications Generic Name Dose Route Start Last Admin Trade Name Freq PRN Reason Stop Dose Admin Acetaminophen 650 mg 07/23/18 23:21 07/24/18 05:07 Tylenol PO 08/22/18 23:20 650 mg Q4H PRN Administration Pain or Fever Vancomycin HCl 1,500 mg/ 530 mls @ 200 mls/hr 07/24/18 08:00 07/24/18 10:33 Sodium Chloride IV 07/31/18 07:59 Infused Q12H HÉCTOR Infusion Cefepime HCl 1,000 mg/ Syringe 11.3 mls @ 5.5 mls/min 07/24/18 06:00 07/24/18 05:08 IV 07/31/18 05:59 5.5 mls/min Q8H HÉCTOR Administration Protocol Ioversol 119 ml 07/23/18 19:44 07/23/18 19:45 Optiray 320 125ml IV 07/27/18 19:43 119 ml ONCE PRN Administration Interaction Checking Ketorolac Tromethamine 30 mg 07/23/18 23:21 07/24/18 05:03 Toradol IV 07/25/18 23:20 30 mg Q6H PRN Administration Pain
[2018-07-24] MEDS: NICOTINE 14 MG/24 HR PATCH TD SCH (12:42)
--- NOTE | 2018-07-24 13:47 | Pharmacy Report ---
Pharmacy Abx Initial Consult - Date of Service July 24, 2018 - Pharmacy Dosing Scope Date of Consult: 07-24 Consultation requested by: Jeny VIRAMONTES Pharmacy is consulted to initiate vancomycin IV/PO dosing therapy, order appropriate labs and adjust drug dose/frequency. - Subjective The patient is a 48 year old M admitted on 07/23/18 20:45. - Objective Height: 5 ft 9 in Weight: 89.4 kg Vital Signs (Past 12hrs): Vital Signs Temp Pulse Pulse Resp BP BP Pulse Ox 07/24/18 12:24 37.7 C H 73 18 106/67 95 07/24/18 08:23 37.0 C 61 18 109/61 95 07/24/18 07:11 70 07/24/18 04:57 38.3 C H 84 18 110/71 96 Lab Results (24hrs): Laboratory Tests (24 Hours) 07/24/18 07/24/18 07/24/18 07:05 07:05 07:05 WBC 11.43 H Neut # (Auto) 9.14 H ESR 5 Creatinine 1.04 Est Cr Clr Drug Dosing 96.1 C-Reactive Protein 5.79 H Procalcitonin Micro Results: 07/23/18 20:29 Aerobic Blood Culture - Pending Blood Anaerobic Blood Culture - Pending 07/23/18 20:54 Aerobic Blood Culture - Pending Blood Anaerobic Blood Culture - Pending - Assessment & Plan Assessment 48 year old male admitted with increased shortness of breath/chest pain. Chest xray with multiple nodules concerning and differential includes possible septic emboli, metastatic disease, fungal infection, rheumatoid nodules. Pulmonology also consulted. Awaiting immunology studies. Blood cultures x 2 are pending. MRSA nasal swab negative but positive hx of MRSA Plan Vancomycin IV * Loading dose of vancomycin 2250 mg (~25 mg/kg) x 1 ordered last evening * Started on vancomycin 1500 mg (~16 mg/kg) iv q 12 hrs to achieve an estimated trough ~15-20 mcg/ml * Estimated kinetics: t1/2~9 hrs, ke~0.072, CrCl ~96 ml/min * Will plan to obtain a trough prior to the 0800 dose on 07/26 to ensure therapeutic (goal 15-20 mcg/ml) Cefepime * 1 gm q 8 hrs - appropriate for CrCl >60 ml/min. Could target higher dosing regimen if clinical status changes/worsens Pharmacy will continue to follow and will adjust dose/frequency as necessary. Thank you.
--- NOTE | 2018-07-25 01:07 | Hospitalist Progress Note ---
Date of Service July 24, 2018 Assessment & Plan (1) Febrile illness: Presented with fever and left pleuritic chest pain. CT demonstrated multiple poorly defined nodules including a cavitary lesion. Pulmonary lesions are new compared to CT performed 04/10/18. Radiographically, differential diagnosis includes septic emboli, metastatic disease, fungal infection, Tammy's granulomatosis, rheumatoid nodules. Patient reports negative PPD in Oct 2017. Patient has history MRSA infection in groin treated several months ago. Currently has carbuncles right axilla with drainage. May have recurrent MRSA with bacteremia with septic emboli. No IV drug abuse. Echo showed 1.1 cm linear mobile density near base of non-aortic valve coronary cusp. Blood cultures obtained. Receiving IV vancomycin and cefepime. Culture from draining carbuncle right axilla sent for C&S. Pulmonary Medicine consulted. Blood cultures, ANCA, KEVIN, RF, quantiferon TB gold, coccidioides serologies pending. Consider BOBY. Consult ID. (2) Hypothyroidism: Continue levothyroxine. (3) DVT prophylaxis: SCD's ordered. (4) Discharge planning issues: Anticipated discharge to home. Medical follow-up with Belen Uribe PA-C. Subjective Recheck for febrile illness. Admitted last evening with left pleuritic chest pain. Experiencing fever and sweats. No cough. Painful lesions right axilla. Review of Systems: Constitutional- no fever. Cardiac- no anginal symptoms. Pulmonary- as noted above. GI- no nausea, vomiting, diarrhea, melena, hematochezia. - no urinary symptoms. Otherwise, as noted above. Physical Exam Constitutional: + diaphoretic; no acute distress Respiratory: no respiratory distress Auscultation: lungs clear to auscultation bilaterally Cardiovascular: Rate/Rhythm: regular rate and regular rhythm Heart Sounds: no gallop, no murmur and no cardiac rub Vessels: no JVD Extremities: no calf tenderness and no edema Gastrointestinal (Abdomen): normal bowel sounds, soft, nontender, no hepatosplenomegaly Skin: no rashes, warm and dry 2 carbuncles right axilla Psychiatric: Orientation: alert and oriented x 3 Results & Data Vital Signs (Past 12 Hours) Vital Signs Temp Pulse Pulse Resp BP BP Pulse Ox 07/25/18 00:00 77 07/24/18 23:09 37.8 C H 70 18 110/66 93 07/24/18 19:16 37 C 60 18 107/67 96 07/24/18 15:33 74 07/24/18 14:15 38.2 C H 70 20 109/71 94
[2018-07-25] MEDS: ACETAMINOPHEN 325 MG TAB PO PRN (03:54)
[2018-07-25] MEDS: CEFEPIME 1,000 MG in SYRINGE 0 ML IV SCH (06:17)
[2018-07-25 06:40] LABS: BUN Creatinine Ratio 12.9 (10-20); Calcium 8.2 mg/dl (8.5-10.1); Creatinine Clr Calc Pharmacy 99.9 ml/min; Est GFR (African American) 102.7; Est GFR (Non-African American) 88.6; Potassium 3.8 mmol/L (3.5-5.1)
[2018-07-25 06:53] LABS: Basophils # (auto) 0.03 K/uL (0-0.2); Basophils % (auto) 0.3 %; Eosinophils # (auto) 0.23 K/uL (0-0.5); Eosinophils % (auto) 2.1 %; Hematocrit (blood only) 37.3 % (42-52); Hemoglobin 12.7 g/dL (14.0-18.0); Immature Granulocytes # (auto) 0.03 K/uL (0.00-0.02); Immature Granulocytes % (auto) 0.3 %; Lymphocytes # (auto) 1.18 K/uL (1.2-3.4); Lymphocytes % (auto) 10.9 %; Mean Corpuscular Volume 87.4 fL (80-100); Monocytes # (auto) 1.17 K/uL (0.11-0.59); Monocytes % (auto) 10.8 %; Neutrophils # (auto) 8.18 K/uL (1.4-6.5); Neutrophils % (auto) 75.6 %; Platelet Count 153 K/uL (130-400); Red Blood Count 4.27 M/uL (4.7-6.1); White Blood Count 10.82 K/uL (4.8-10.8)
[2018-07-25] MEDS: VANCOMYCIN HCL 1,500 MG in SODIUM CHLORIDE 0.9% 500 ML IV SCH ×2 (08:40→20:31)
[2018-07-25] MEDS: NICOTINE 14 MG/24 HR PATCH TD SCH (09:17)
--- NOTE | 2018-07-25 10:00 | Cardiology Consultation ---
Date of Consultation July 25, 2018 Assessment & Plan (1) Septic pulmonary embolism: (2) Febrile illness: (3) Chest pain: Resting 2D transthoracic echocardiogram demonstrates possible vegetation involving the aortic valve annulus. Recommend transesophageal echocardiogram for further evaluation. Anesthesia consultation requested. Patient will be made n.p.o. at this time. Continue empiric antibiotics with vancomycin and cefepime as per internal medicine. History of right axillary MRSA infection noted. Cultures pending at this time. Further recommendations pending results of transesophageal echocardiogram. History of Present Illness Reason for Consultation: Septic emboli, possible vegetation on transthoracic echocardiogram Requesting Physician: Dr. Jennifer Banuelos Attending Physician: Jennifer Banuelos DO History of Present Illness 46-year-old patient admitted through the emergency department with fever, and pleuritic chest discomfort. CT of the chest demonstrates multiple cavitary nodules suggesting septic emboli. Patient recently traveled to [place]. Also diagnosed with axillary MRSA infection within the past few weeks and treated with doxycycline. Cultures pending at this time. MRSA screening test negative. Fevers recorded overnight. Currently treated with intravenous vancomycin and cefepime. Previously evaluated by the undersigned in 2011 due to accelerated junctional rhythm and fatigue. Also evaluated by electrophysiology. No intervention performed. Briefly treated with beta-chata therapy, however, cannot tolerate. Denies orthopnea, PND, or lower extremity edema. No headaches, visual changes, or focal weakness. Allergies Allergy/AdvReac Type Severity Reaction Status Date / Time Penicillins Allergy Unknown ` Verified 07/23/18 20:57 Home Medications Home Medications Medication Instructions Recorded Confirmed Type levothyroxine 50 mcg PO DAILY 07/23/18 07/23/18 History Patient History Medical History Cavitary lesion of lung (Acute) Depression (Chronic) Anxiety (Chronic) Hypothyroidism (Chronic) Gout (Chronic) Surgical History History of tonsillectomy and adenoidectomy (Chronic) History of bilateral tympanoplasty (Chronic) Family History Other Unknown family medical history Social History Preferred Language: Persian Communication Ability: Effective Procedure Tech Required: No Beliefs That Will Affect Care: None marital status: Single marital status details: Engaged Current Living Situation: Other Current Living Situation Comment: Lives with fisilvia current occupational status: employed current occupation: [email or web address] Feels Safe at Home: Yes Safety Concerns: Feels Safe At This Time Smoking Status: Never smoker Tobacco Type: smokeless tobacco Hx Alcohol Use: Yes Alcohol type: beer Alcohol Intake Frequency Comment: "Worse case is a case of beer a week, last drink yesterday 2 beers" Hx Substance Use: No Review of Systems Review of Systems: All systems reviewed & are unremarkable except as noted in HPI & below Physical Exam Physical Exam: General: NAD, AAO x3, well nourished. Acutely ill. HEENT: Normocephalic. Atraumatic. Conjunctiva pink, no scleral icterus. Neck: No carotid bruits, the carotid upstrokes are brisk. No JVD. No HJR Heart: Regular normal S-1 and S-2 no S-3 or S-4 gallop. No murmurs or rub appreciated. PMI is not displaced. No RV heave. Lungs: Clear bilateral without rales , rhonchi, or wheeze. Abdomen: Normal bowel sounds. Soft. Nontender. No masses or organomegaly. No abdominal bruits. Extremities: No clubbing, cyanosis, or edema. Pulses: radial=2/4, Dorsalis pedis =2/4, posterior tibial=2/4. Neuro: Cranial nerves grossly intact. No focal motor deficit. Results & Data Vital Signs (Past 12 Hours) Vital Signs Temp Pulse Pulse Resp BP Pulse Ox 07/25/18 08:45 65 07/25/18 07:09 37.0 C 62 18 102/63 94 07/25/18 03:49 38.1 C H 69 18 108/70 92 07/25/18 00:00 77 07/24/18 23:09 37.8 C H 70 18 110/66 93 Laboratory Results Laboratory Results - last 24 hr 07/24/18 07/25/18 07/25/18 07:05 05:57 05:57 WBC 10.82 H RBC 4.27 L Hgb 12.7 L Hct 37.3 L MCV 87.4 MCH 29.7 MCHC 34.0 Plt Count 153 Immature Gran % (Auto) 0.3 Neut % (Auto) 75.6 Lymph % (Auto) 10.9 [place] % (Auto) 10.8 Eos % (Auto) 2.1 Baso % (Auto) 0.3 Immature Gran # (Auto) 0.03 H Neut # (Auto) 8.18 H Lymph # (Auto) 1.18 L [place] # (Auto) 1.17 H Eos # (Auto) 0.23 Baso # (Auto) 0.03 Sodium 141 Potassium 3.8 Chloride 111 H Carbon Dioxide 25 Anion Gap 6.0 BUN 13 Creatinine 1.00 Est Cr Clr Drug Dosing 99.9 Est GFR ( Amer) 102.7 Est GFR (Non-Af Amer) 88.6 BUN/Creatinine Ratio 12.9 Glucose 96 Calcium 8.2 L Coccidioides Ab (ID) Pending (1) Septic pulmonary embolism Acute cor pulmonale presence: without acute cor pulmonale Chronicity: unspecified Qualified Code(s): I26.90 - Septic pulmonary embolism without acute cor pulmonale (2) Chest pain Chest pain type: unspecified Qualified Code(s): R07.9 - Chest pain, unspecified
--- NOTE | 2018-07-25 10:24 | Infectious Disease Consult ---
Date of Consultation July 25, 2018 Assessment & Plan (1) Cavitary lesion of lung: continue abx, await BOBY findings. no clear risk factors for IE. ? aspiration pna, MRSA swab +. follow blood cultures, negative to date. May benefit from bronch - routine, afb, fungal cultures. Doubt TB due to rapid onset of symptoms with negative tb screen in Oct. will follow. 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 no trauma. also having subjective fevers at home for 2-3 travel pta. some cough, dry, no sputum, no hemoptysis. ct chest done in ER showing multiple pulm nodules (new from Ct done on 04/10/18) some with cavitation, ddx septic emboli, mets, fungal, tb. no wt loss, eating well, no night sweats. Has annual tb testing for employment, last done in October, negative, states always negative, placed in airborne isolation, IGRA ordered and pending, no sputum cultures done. blood cultures negative. ESR 5, crp 5.7, LFTs normal. Right axilla culture rare gpc on gram stain, culture pending. placed on vanco and cefepime, tolerating well. afebrile currently, tmax 38.1. pulm eval done, cocci serologies pending. Echo done and ? AV veg, for BOBY, ate breakfast this am. No recent travel, last travel to [place] in Mar. 2 dogs at home. no sick contacts. states children are grown, has grandchildren but has not seen them in some time. no exposure to farm animals. does not spend significant time outdoors, no known TB contact. no abd pain, no n/v/d, no sob, wheeze, shelley, no rash, arthraligias, myalgias. no gu symptoms. denies any recent surgical procedures, dental cleanings, scopes, etc. Allergies Allergy/AdvReac Type Severity Reaction Status Date / Time Penicillins Allergy Unknown ` Verified 07/23/18 20:57 Home Medications Home Medications Medication Instructions Recorded Confirmed Type levothyroxine 50 mcg PO DAILY 07/23/18 07/23/18 History Patient History Medical History Cavitary lesion of lung (Acute) Depression (Chronic) Anxiety (Chronic) Hypothyroidism (Chronic) Gout (Chronic) Surgical History History of tonsillectomy and adenoidectomy (Chronic) History of bilateral tympanoplasty (Chronic) Family History Other Unknown family medical history Social History Preferred Language: Yi Communication Ability: Effective 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: No Beliefs That Will Affect Care: None marital status: Single marital status details: Engaged Current Living Situation: Other Current Living Situation Comment: Lives with fiance current occupational status: employed current occupation: [employer] Feels Safe at Home: Yes Safety Concerns: Feels Safe At This Time Smoking Status: Never smoker Tobacco Type: smokeless tobacco Hx Alcohol Use: Yes Alcohol type: beer Alcohol Intake Frequency Comment: "Worse case is a case of beer a week, last drink yesterday 2 beers" Hx Substance Use: No Review of Systems Review of Systems: All systems reviewed & are unremarkable except as noted in HPI & below Physical Exam Constitutional: WD/WN, vitals as above Eyes: PERRL, conjunctivae normal, anicteric sclerae ENMT: external ear and nose normal, oropharynx normal Neck: normal visual inspection Respiratory: normal respiratory effort, lungs clear to auscultation Cardiovascular: RRR, no murmur, no edema Gastrointestinal (Abdomen): normal bowel sounds, soft, nontender, no hepatosplenomegaly Musculoskeletal: no cyanosis or clubbing, extremities motor strength 5/5 Skin: no rashes, warm and dry Psychiatric: A+Ox3, euthymic affect Results & Data Vital Signs (Past 12 Hours) Vital Signs Temp Pulse Pulse Resp BP Pulse Ox 07/25/18 08:45 65 07/25/18 07:09 37.0 C 62 18 102/63 94 07/25/18 03:49 38.1 C H 69 18 108/70 92 07/25/18 00:00 77 07/24/18 23:09 37.8 C H 70 18 110/66 93 Laboratory Results Microbiology 07/24/18 Unknown Axilla,Right Gram Stain - Final 07/23/18 20:54 Blood Aerobic Blood Culture - Preliminary No growth in Aerobic bottle after 24 hours. 07/23/18 20:54 Blood Anaerobic Blood Culture - Preliminary No growth in Anaerobic bottle after 24 hours. 07/23/18 20:29 Blood Aerobic Blood Culture - Preliminary No growth in Aerobic bottle after 24 hours. 07/23/18 20:29 Blood Anaerobic Blood Culture - Preliminary No growth in Anaerobic bottle after 24 hours.
--- NOTE | 2018-07-25 14:21 | Anesthesiology Consultation ---
Date of Service July 25, 2018 Assessment & Plan Chart Review Chart Review: Acceptable Risk for Surgery Consults Requested none History Height/Weight Height: 5 ft 9 in Weight: 89.4 kg Allergies Allergy/AdvReac Type Severity Reaction Status Date / Time Penicillins Allergy Unknown ` Verified 07/23/18 20:57 Medications Home Medications Medication Instructions Recorded Confirmed Last Taken levothyroxine 50 mcg PO DAILY 07/23/18 07/23/18 Unknown Active Medications Generic Name Dose Route Start Last Admin Trade Name Freq PRN Reason Stop Dose Admin Acetaminophen 650 mg 07/23/18 23:21 07/25/18 03:54 Tylenol PO 08/22/18 23:20 650 mg Q4H PRN Administration Pain or Fever Vancomycin HCl 1,500 mg/ 530 mls @ 200 mls/hr 07/24/18 08:00 07/25/18 11:23 Sodium Chloride IV 07/31/18 07:59 Infused Q12H HÉCTOR Infusion Ioversol 119 ml 07/23/18 19:44 07/23/18 19:45 Optiray 320 125ml IV 07/27/18 19:43 119 ml ONCE PRN Administration Interaction Checking Ketorolac Tromethamine 30 mg 07/23/18 23:21 07/24/18 14:25 Toradol IV 07/25/18 23:20 30 mg Q6H PRN Administration Pain Miscellaneous 1 ea 07/24/18 21:00 07/24/18 22:58 Remove Nicoderm Patch N/A 08/23/18 20:59 1 ea HS HÉCTOR Administration Nicotine 14 mg 07/24/18 12:15 07/25/18 09:17 Nicoderm Cq TD 08/23/18 12:14 14 mg QAM HÉCTOR Administration Past Medical History Medical History Cavitary lesion of lung (Acute) Depression (Chronic) Anxiety (Chronic) Hypothyroidism (Chronic) Gout (Chronic) Past Family History Family History Other Unknown family medical history Past Surgical History Surgical History History of tonsillectomy and adenoidectomy (Chronic) History of bilateral tympanoplasty (Chronic) Social History Smoking Status: Never smoker tobacco type: smokeless tobacco Hx Alcohol Use: Yes Alcohol type: beer alcohol intake frequency: 0-2 drinks per day Hx Substance Use: No Physical Exam Vital Signs Last Vital Signs Temp 37.4 C 07/25/18 11:22 Pulse 63 07/25/18 11:22 Resp 18 07/25/18 11:22 BP 120/78 07/25/18 11:22 Pulse Ox 95 07/25/18 11:22 Testing Laboratory Results 07/25/18 05:57 07/25/18 05:57 07/24/18 Unknown Gram Stain - Final Axilla,Right Wound Culture - Preliminary Staphylococcus aureus 07/23/18 20:54 Aerobic Blood Culture - Preliminary Blood No growth in Aerobic bottle after 24 hours. Anaerobic Blood Culture - Preliminary No growth in Anaerobic bottle after 24 hours. 07/23/18 20:29 Aerobic Blood Culture - Preliminary Blood No growth in Aerobic bottle after 24 hours. Anaerobic Blood Culture - Preliminary No growth in Anaerobic bottle after 24 hours.
[2018-07-25] MEDS: CEFEPIME 2,000 MG in SYRINGE 0 ML IV SCH ×2 (14:24→20:31)
--- NOTE | 2018-07-25 15:10 | Hospitalist Progress Note ---
Date of Service July 25, 2018 Assessment & Plan (1) Febrile illness: Acute persistent fever and pleuritic chest pain with multiple poorly defined nodules on CT chest including a cavitary lesion. Higher on differential diagnosis is GPA or disseminated coccidiomycosis after known recent travel. IE considered and this with septic emboli still possible so will continue current antibiotics. However, source unclear, not an IVDU and continues to fever despite broad spectrum antibiotics. Additionally, he had an acute monoarticular arthritis of the knee that appeared without trauma in May 2018. He was seen and diagnosed with a meniscal tear, but never followed up for further workup as it resolved in a few days. This arthritis then affected the other knee with the same process. This may be seen in extrapulmonary coccidiomycosis infection, GPA. Coccidiomycosis also may present with soft tissue abscesses. DDx also includes but not limited to Lyme, histoplasmosis, lung abscess, TB, metastatic disease. Will discuss with Rheum by phone in am. Limited inpatient consult availability at this facility. (2) Hypothyroidism: Continue levothyroxine. (3) DVT prophylaxis: Lovenox Full Dispo-to home when medically stable. 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 Jennifer Banuelos DO [facility] Hospitalist (4) Discharge planning issues: Anticipated discharge to home. Medical follow-up with Belen Uribe PA-C. Subjective Presented to the ER with chest pain, still present with deep breathing or coughing. Also reports fevers, and chills for past two days. Recently noted axillary nodules which are elevated, erythematous and painful. Pustule cultured on arrival and showing staph aureus with speciation pending. MRSA screen negative but has a h/o MRSA with a prior skin infection in groin. He reports having knee joint pain and swelling that was acute two months ago, which resolved and moved to the other knee. There was no trauma to the knees. No other joints have been effected. TTE revealed an echo density that requires f urther evaluation with BOBY, which was performed today. at bedside and assists with history. Overall today he feels poorly, has been fevering off/on. +appetite. Review of Systems Review of Systems: All systems reviewed & are unremarkable except as noted in HPI & below Physical Exam Physical Exam: CONSTITUTIONAL: WNWD, vitals as above, generally ill appearing EYES: normal conjunctivae, no scleral icterus ENT: MMM RESPIRATORY: clear to auscultation bilaterally, no crackles, rales or wheezes, normal respiratory effort CARDIOVASCULAR: regular rate and rhythm, S1 and 2 heard without murmurs, gallops or rubs, no JVD, no peripheral edema, no carotid bruits GASTROINTESTINAL: normal bowel sounds, soft, nontender, nondistended MUSCULOSKELETAL: strength 5/5 throughout, head is normocephalic and atraumatic, neck supple, normal palpation of chest wall without tenderness SKIN: warm and dry, no rashes JOINTs: all evaluated and no swelling, inflammation or restricted ROM at this time. NEUROLOGIC: CN 2-12 grossly intact, no gross focal deficit. PSYCHIATRIC: alert cooperative and oriented to person, place and time. Results & Data Vital Signs (Past 12 Hours) Vital Signs Temp Pulse Pulse Resp BP Pulse Ox 07/25/18 14:53 38.6 C H 83 20 121/74 93 07/25/18 14:35 38 C H 07/25/18 11:22 37.4 C 63 18 120/78 95 07/25/18 08:45 65 07/25/18 07:09 37.0 C 62 18 102/63 94 07/25/18 03:49 38.1 C H 69 18 108/70 92 Laboratory Results Short CBC 07/25/18 Range/Units 05:57 WBC 10.82 H (4.8-10.8) K/uL Hgb 12.7 L (14.0-18.0) g/dL Hct 37.3 L (42-52) % Plt Count 153 (130-400) K/uL BMP 07/25/18 05:57 Sodium 141 Potassium 3.8 Chloride 111 H Carbon Dioxide 25 BUN 13 Creatinine 1.00 Glucose 96 Calcium 8.2 L Medications Administered Current Inpatient Medications Acetaminophen (Tylenol) 650 mg PO Q4H PRN PRN Reason: Pain or Fever Stop: 08/22/18 23:20 Last Admin: 07/25/18 03:54 Dose: 650 mg Documented by: Al Hydrox/Mg Hydrox/Simethicone (Maalox) 15 ml PO Q4H PRN PRN Reason: Dyspepsia Stop: 08/22/18 23:20 Diltiazem HCl (Cardizem) 30 mg PO TID HÉCTOR Stop: 08/24/18 20:59 Last Admin: 07/25/18 20:32 Dose: 30 mg Documented by: Vancomycin HCl 1,500 mg/ (Sodium Chloride) 530 mls @ 200 mls/hr IV Q12H [facility] Stop: 07/25/18 23:59 Last Admin: 07/25/18 20:31 Dose: 200 mls/hr Documented by: Cefepime HCl 2,000 mg/ Syringe 12.5 mls @ 5 mls/min IV Q8H [facility]; Protocol Stop: 08/01/18 13:59 Last Admin: 07/25/18 20:31 Dose: 5 mls/min Documented by: Acetaminophen (Ofirmev) 65 mls @ 200 mls/hr IV Q6H PRN PRN Reason: pain or fever Stop: 08/24/18 15:14 Last Infusion: 07/25/18 18:32 Dose: Infused Documented by: Vancomycin HCl 1,500 mg/ (Sodium Chloride) 530 mls @ 200 mls/hr IV Q8H [facility] Stop: 07/31/18 07:59 Ioversol (Optiray 320 125ml) 119 ml IV ONCE PRN PRN Reason: Interaction Checking Stop: 07/27/18 19:43 Last Admin: 07/23/18 19:45 Dose: 119 ml Documented by: Ketorolac Tromethamine (Toradol) 30 mg IV Q6H PRN PRN Reason: Pain Stop: 07/25/18 23:20 Last Admin: 07/24/18 14:25 Dose: 30 mg Documented by: Magnesium Hydroxide (Milk Of Magnesia) 30 ml PO Q12H PRN PRN Reason: Constipation Stop: 08/22/18 23:20 Miscellaneous (Remove Nicoderm Patch) 1 ea N/A HS [facility] Stop: 08/23/18 20:59 Last Admin: 07/25/18 20:32 Dose: 1 ea Documented by: Miscellaneous Information (Consult) 1 ea N/A UD PRN PRN Reason: Consult Stop: 08/22/18 23:20 Miscellaneous Information (Cefepime Consult Active) 1 ea N/A UD PRN PRN Reason: Consult Stop: 08/23/18 01:33 Nicotine (Nicoderm Cq) 14 mg TD QAM [facility] Stop: 07/16/19 12:14 Last Admin: 07/25/18 09:17 Dose: 14 mg Documented by: Ondansetron HCl (Zofran) 4 mg IV Q6H PRN PRN Reason: Nausea Stop: 08/22/18 23:20 Polyethylene Glycol (Miralax Powder Packet) 17 gm PO DAILY PRN PRN Reason: Constipation Stop: 08/22/18 23:20
[2018-07-25] MEDS ORDERED: ACETAMINOPHEN 65 ML IV PRN (15:15)
[2018-07-25] MEDS ORDERED: MIDAZOLAM HCL 1 MG/ML 2ML VIAL ONE (15:56)
[2018-07-25] MEDS ORDERED: fentaNYL citrate 100 MCG/2 ML VIAL ONE (15:56)
[2018-07-25] MEDS ORDERED: PROPOFOL IV EMULSION 10 MG/ML 20 ML VIAL IV ONE (15:56)
[2018-07-25] MEDS ORDERED: LIDOCAINE HCL 2% 2 ML VIAL/AMP(20MG/ML) INFIL ONE (16:00)
--- NOTE | 2018-07-25 17:13 | Anesthesiology Progress Note ---
Date of Service July 25, 2018 Anesthesia Post Procedure Vital Signs Vital Signs: Temp Pulse Pulse Resp BP Pulse Ox 07/25/18 16:42 81 20 101/58 L 97 07/25/18 15:49 36.7 C 76 20 115/74 95 07/25/18 14:53 38.6 C H 83 20 121/74 93 07/25/18 14:35 38 C H 07/25/18 11:22 37.4 C 63 18 120/78 95 07/25/18 08:45 65 07/25/18 07:09 37.0 C 62 18 102/63 94 07/25/18 03:49 38.1 C H 69 18 108/70 92 07/25/18 00:00 77 07/24/18 23:09 37.8 C H 70 18 110/66 93 07/24/18 19:16 37 C 60 18 107/67 96 Pain Intensity Chest: Pain Intensity: 3 Transfer of Care Handoff Completed per policy Notes Mental Status: alert / awake / arousable and participated in evaluation Patient Amnestic to Procedure: Yes Nausea / Vomiting: adequately controlled Pain: adequately controlled Airway Patency, RR, SpO2: stable & adequate BP & HR: stable & adequate Hydration State: stable & adequate Anesthetic Complications: no major complications apparent
[2018-07-25] MEDS ORDERED: VANCOMYCIN TROUGH ONE (19:30)
[2018-07-25] MEDS: dilTIAZem HCL 30 MG TAB PO SCH (20:32)
--- NOTE | 2018-07-25 21:00 | Pharmacy Report ---
Pharmacy Abx Dose Short Note - Date of Service July 25, 2018 - Assessment & Plan Assessment 48 year old M receiving iv Vancomycin for treatment of pulmonary infection Day # 4 IV Vancomycin of antimicrobial therapy. Plan Vancomycin * Trough level of 9.6 mcg/mL is subtherapeutic * Change to 1500 mg IV every 8 hours * Goal trough level for pulmonary infection: 15 to 20 mcg/mL * Trough level ordered for: 07/27/18 prior to the noon dose Pharmacy will continue to follow and will adjust dose/frequency as necessary. Thank you.
[2018-07-26] MEDS: VANCOMYCIN HCL 1,500 MG in SODIUM CHLORIDE 0.9% 500 ML IV SCH ×3 (05:03→20:23)
[2018-07-26] MEDS: CEFEPIME 2,000 MG in SYRINGE 0 ML IV SCH ×2 (05:03→14:22)
[2018-07-26] MEDS: ACETAMINOPHEN 325 MG TAB PO PRN ×2 (06:40→16:21)
[2018-07-26] MEDS: LEVOTHYROXINE SODIUM 50 MCG TABLET PO SCH (06:40)
[2018-07-26 06:55] LABS: Basophils # (auto) 0.02 K/uL (0-0.2); Basophils % (auto) 0.2 %; Eosinophils # (auto) 0.31 K/uL (0-0.5); Eosinophils % (auto) 3.1 %; Hematocrit (blood only) 37.9 % (42-52); Hemoglobin 12.7 g/dL (14.0-18.0); Immature Granulocytes # (auto) 0.02 K/uL (0.00-0.02); Immature Granulocytes % (auto) 0.2 %; Lymphocytes # (auto) 1.12 K/uL (1.2-3.4); Mean Corpuscular Hgb Conc 33.5 g/dL (32-36); Mean Corpuscular Volume 88.6 fL (80-100); Mean Platelet Volume 10.3 fL (7.4-10.4); Monocytes # (auto) 1.18 K/uL (0.11-0.59); Monocytes % (auto) 11.6 %; Neutrophils # (auto) 7.51 K/uL (1.4-6.5); Neutrophils % (auto) 73.9 %; Platelet Count 156 K/uL (130-400); RDW Coefficient of Variation 13.3 % (11.5-14.5); RDW Standard Deviation 42.5 fL (36.4-46.3); Red Blood Count 4.28 M/uL (4.7-6.1); White Blood Count 10.16 K/uL (4.8-10.8)
[2018-07-26 07:03] LABS: INR 1.1 (0.9-1.1); Prothrombin Time 10.9 Seconds (9.0-12.0)
[2018-07-26 07:13] LABS: Albumin Level 2.8 gm/dl (3.4-5.0); BUN Creatinine Ratio 10.1 (10-20); Calcium 8.1 mg/dl (8.5-10.1); Creatinine Clr Calc Pharmacy 104.1 ml/min; Est GFR (African American) 107.9; Est GFR (Non-African American) 93.1
[2018-07-26 07:16] LABS: Albumin Globulin Ratio 0.9 (0.9-2); Bilirubin,Total 0.5 mg/dl (0.2-1); Globulin 3.2 gm/dl (2.5-4.0)
[2018-07-26] MEDS ORDERED: VANCOMYCIN TROUGH ONE (07:30)
[2018-07-26 07:31] LABS: RBC Morphology Unremarkable
[2018-07-26] MEDS: dilTIAZem HCL 30 MG TAB PO SCH ×2 (07:56→14:21)
[2018-07-26 08:01] LABS: Lyme Ab IgG w/WB Rflx Negative (Negative)
[2018-07-26 08:11] LABS: Lyme Ab IgM w/WB Rflx Equivocal (Negative)
[2018-07-26] MEDS: ENOXAPARIN INJ 40 MG/0.4 ML SYR SQ SCH (09:55)
[2018-07-26] MEDS: NICOTINE 14 MG/24 HR PATCH TD SCH (09:56)
--- NOTE | 2018-07-26 10:28 | Pulmonology Progress Note ---
Date of Service July 26, 2018 Assessment & Plan (1) Cavitary lesion of lung: The patient has a small cavity in the left lung field. It is very peripheral. In light of the persistent fever and negative blood culture I believe bronchoscopy may be helpful. He is not expectorating any significant sputum. The quantiferon TB Gold test is still pending. He will be set up for Dr. Calderon to perform bronchoscopy tomorrow. Present on Admission?: Yes (2) Multiple lung nodules: The patient has multiple small nodules that were not seen on prior CAT scan done 04/10/2018. This may well be part of his underlying infectious appearing etiology. As noted bronch to be done tomorrow. The nodules themselves are too small for biopsy but lavage can be done. Present on Admission?: Yes (3) Febrile illness: The etiology of the febrile illness is still unclear. It seems most likely to be infectious. 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 Fungal infection is to be considered. He has had travel to [place] 3 months ago. I would have expected a more recent onset of infection if this were coccidiomycosis. He also was not in an area that was likely endemic for coccidioidomycosis. Will be getting routine cultures, AFB cultures, and fungal culture from bronchoscopy. Septic emboli not excluded, although blood cultures negative thus far. Present on Admission?: Yes Subjective The patient is still symptomatic. He has diaphoresis today. He is still having fevers. He is still having mild pleuritic chest pain in the left anterior chest mid axillary line. The chest pain is less than it had been previously. His appetite is good. Patient states that he had lost about 35 pounds in the past year but was trying to lose weight in the last 2 months however he has gained 15 or 20 pounds back. He states his energy level is low. When I asked him how long that has been he states it is been for ever, even since he was young. I suspect that is not exactly accurate but his perspective on it. Review of Systems Review of Systems: Patient denies headache. Denies difficulty swallowing no nausea. States he is a poor sleeper. This is not new. He did have a sleep study a few years ago that was negative as per the patient. Otherwise review of systems is negative. Physical Exam Physical Exam: Patient is a 48-year-old male who was cooperative, alert, and oriented. He did not appear in distress he was diaphoretic. The right axilla shows at least 2 areas of erythema and induration. This was previously cultured and showing MRSA. Cardiac rate 59 bpm. Rhythm was regular. Blood pressure 105/66. Current temperature 36.9 temperature 4 AM today 37.8. Temperature last evening at 6 PM was 39.1 and appears to up in the maximum for the day. Auscultation of the lung calloway revealed rales at the right base. Patient was coughing with deep inspiration. Respiratory rate 20 breaths/min and not labored. Saturation 93% on room air. Abdomen was soft and nontender. Bowel sounds present. Extremities showed no cyanosis clubbing or edema. Results & Data Vital Signs (Past 12 Hours) Vital Signs Temp Pulse Resp BP Pulse Ox 07/26/18 08:30 36.9 C 59 L 20 105/66 93 07/26/18 04:20 37.8 C H 75 18 122/70 93 07/25/18 23:27 62 07/25/18 23:21 37.3 C 54 L 18 106/56 L 92 Laboratory Results 07/26/18 06:35 07/26/18 06:35 Abnormal lab results 07/26/18 07/26/18 07/26/18 Range/Units 06:35 06:35 06:35 RBC 4.28 L (4.7-6.1) M/uL Hgb 12.7 L (14.0-18.0) g/dL Hct 37.9 L (42-52) % Neut # (Auto) 7.51 H (1.4-6.5) K/uL Lymph # (Auto) 1.12 L (1.2-3.4) K/uL [place] # (Auto) 1.18 H (0.11-0.59) K/uL ESR (0-14) mm/hr Chloride 110 H (98-107) mmol/L Anion Gap 2.0 L (3-11) Glucose 117 H (70-99) mg/dl Calcium 8.1 L (8.5-10.1) mg/dl C-Reactive Protein 10.00 H (0-0.29) mg/dl Total Protein 6.0 L (6.4-8.2) gm/dl Albumin 2.8 L (3.4-5.0) gm/dl Lyme Disease IgM Ab Equivocal A (Negative) 07/26/18 Range/Units 06:35 RBC (4.7-6.1) M/uL Hgb (14.0-18.0) g/dL Hct (42-52) % Neut # (Auto) (1.4-6.5) K/uL Lymph # (Auto) (1.2-3.4) K/uL [place] # (Auto) (0.11-0.59) K/uL ESR 36 H (0-14) mm/hr Chloride (98-107) mmol/L Anion Gap (3-11) Glucose (70-99) mg/dl Calcium (8.5-10.1) mg/dl C-Reactive Protein (0-0.29) mg/dl Total Protein (6.4-8.2) gm/dl Albumin (3.4-5.0) gm/dl Lyme Disease IgM Ab (Negative) Laboratory Tests 07/26/18 06:35 PT 10.9 INR 1.[address] angio chest PE protocol IMPRESSION: 1. Multiple solid poorly marginated nodules (at least 10) scattered throughout the lungs the largest nodule in the left upper lobe, which is cavitary. This is new from prior exam. The appearance raises concern for septic emboli, cavitary metastatic disease, fungal infection, Tammy's granulomatosis, or rheumatoid nodules among other diagnostic considerations. 2. No evidence of pulmonary emboli. 3. Infiltration of the right axilla raises concern for cellulitis. Correlate clinically.
--- NOTE | 2018-07-26 11:14 | Hospitalist Progress Note ---
Date of Service July 26, 2018 Assessment & Plan (1) Febrile illness: Acute persistent fever and pleuritic chest pain with multiple poorly defined nodules on CT chest including a cavitary lesion. DDX includes but not limited to GPA, disseminated coccioides/histoplasmosis, IE with infectious septic emboli (BOBY ruled out vegetation and lower risk for IE although does have poor dentition), MRSA, Lyme disease (no tick bite remembered) Additionally, he had an acute monoarticular arthritis of the knee that appeared without trauma in May 2018. He was seen and diagnosed with a meniscal tear, but never followed up for further workup as it resolved in a few days. This arthritis then affec marion the other knee with the same process. Lyme IgM is equivocal. Cont cefepime until returns negative. Cont Vanc pending further study results. Repeat blood cultures pending. (2) MRSA (methicillin resistant Staphylococcus aureus) infection: axillary MRSA positive infection. Cont Vanc as planned above. (3) Hypothyroidism: Continue levothyroxine. (4) Depression: recently stopped Celexa as he couldn't tolerate it. (5) DVT prophylaxis: Lovenox, given this am but will hold pending bronch in am. Full Dispo-to home when medically stable. 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 Jennifer Banuelos DO [facility] Hospitalist Subjective 48 yo M with acute onset chest pain with fevers and axillary MRSA infection. Fevers and chest pain persist overnight. Tolerating PO. Reports a history of intermittent migrating numbness/paresthesias for last two years that will last a few minutes to hours and resolve spontaneously. I discussed the case with Dr. Zena Centeno in [place] who doesn't think this sounds like a vascullitis. If ANCA returns positive, would consider a biopsy of pulmonary nodule. Urine studies pending to look for casts or protein. Plan for bronch in am-patient is aware. Sputum culture for MRSA ordered. [facility] studies should return per lab by Thurs/Fri of this week. Review of Systems Review of Systems: All systems reviewed & are unremarkable except as noted in HPI & below Physical Exam Physical Exam: CONSTITUTIONAL: WNWD, vitals as above, generally well appearing EYES: normal conjunctivae, no scleral icterus ENT: MMM RESPIRATORY: clear to auscultation bilaterally, no crackles, rales or wheezes, normal respiratory effort CARDIOVASCULAR: regular rate and rhythm, S1 and 2 heard without murmurs, gallops or rubs, no JVD, no peripheral edema, no carotid bruits GASTROINTESTINAL: normal bowel sounds, soft, nontender, nondistended MUSCULOSKELETAL: strength 5/5 throughout, head is normocephalic and atraumatic, neck supple, normal palpation of chest wall without tenderness SKIN: warm and dry, no rashes JOINTs: all evaluated and no swelling, inflammation or restricted ROM at this time. NEUROLOGIC: CN 2-12 grossly intact, no gross focal deficit. PSYCHIATRIC: alert cooperative and oriented to person, place and [place] Results & Data Vital Signs (Past 12 Hours) Vital Signs Temp Pulse Resp BP Pulse Ox 07/26/18 10:27 63 07/26/18 08:30 36.9 C 59 L 20 105/66 93 07/26/18 04:20 37.8 C H 75 18 122/70 93 07/25/18 23:27 62 07/25/18 23:21 37.3 C 54 L 18 106/56 L 92 Laboratory Results Short CBC 07/26/18 Range/Units 06:35 WBC 10.16 (4.8-10.8) K/uL Hgb 12.7 L (14.0-18.0) g/dL Hct 37.9 L (42-52) % Plt Count 156 (130-400) K/uL BMP 07/26/18 06:35 Sodium 140 Potassium 4.0 Chloride 110 H Carbon Dioxide 28 BUN 10 Creatinine 0.96 Glucose 117 H Calcium 8.1 L Liver Function 07/26/18 Range/Units 06:35 Total Bilirubin 0.5 (0.2-1) mg/dl AST 21 (15-37) U/L ALT 27 (12-78) U/L Alkaline Phosphatase 52 (45-117) U/L Albumin 2.8 L (3.4-5.0) gm/dl Medications Administered Current Inpatient Medications Acetaminophen (Tylenol) 650 mg PO Q4H PRN PRN Reason: Pain or Fever Stop: 08/22/18 23:20 Last Admin: 07/26/18 06:40 Dose: 650 mg Documented by: Al Hydrox/Mg Hydrox/Simethicone (Maalox) 15 ml PO Q4H PRN PRN Reason: Dyspepsia Stop: 08/22/18 23:20 Diltiazem HCl (Cardizem) 30 mg PO TID [facility] Stop: 08/24/18 20:59 Last Admin: 07/26/18 07:56 Dose: 30 mg Documented by: Enoxaparin Sodium (Lovenox) 40 mg SQ QAM [facility] Stop: 08/25/18 08:59 Last Admin: 07/26/18 09:55 Dose: 40 mg Documented by: Cefepime HCl 2,000 mg/ Syringe 12.5 mls @ 5 mls/min IV Q8H [facility]; Protocol Stop: 08/01/18 13:59 Last Admin: 07/26/18 05:03 Dose: 5 mls/min Documented by: Acetaminophen (Ofirmev) 65 mls @ 200 mls/hr IV Q6H PRN PRN Reason: pain or fever Stop: 08/24/18 15:14 Last Infusion: 07/25/18 18:32 Dose: Infused Documented by: Vancomycin HCl 1,500 mg/ (Sodium Chloride) 530 mls @ 200 mls/hr IV Q8H [facility] Stop: 07/31/18 07:59 Last Infusion: 07/26/18 07:46 Dose: Infused Documented by: Sodium Chloride (Nss 1000ml) 1,000 mls @ 15 mls/hr IV .Q24H [facility] Stop: 08/26/18 08:59 Ioversol (Optiray 320 125ml) 119 ml IV ONCE PRN PRN Reason: Interaction Checking Stop: 07/27/18 19:43 Last Admin: 07/23/18 19:45 Dose: 119 ml Documented by: Levothyroxine Sodium (Synthroid) 50 mcg PO DAILYBB [facility] Stop: 08/25/18 06:29 Last Admin: 07/26/18 06:40 Dose: 50 mcg Documented by: Magnesium Hydroxide (Milk Of Magnesia) 30 ml PO Q12H PRN PRN Reason: Constipation Stop: 08/22/18 23:20 Miscellaneous (Remove Nicoderm Patch) 1 ea N/A HS [facility] Stop: 08/23/18 20:59 Last Admin: 07/25/18 20:32 Dose: 1 ea Documented by: Miscellaneous Information (Consult) 1 ea N/A UD PRN PRN Reason: Consult Stop: 08/22/18 23:20 Miscellaneous Information (Cefepime Consult Active) 1 ea N/A UD PRN PRN Reason: Consult Stop: 08/23/18 01:33 Nicotine (Nicoderm Cq) 14 mg TD QAM [facility] Stop: 08/23/18 12:14 Last Admin: 07/26/18 09:56 Dose: 14 mg Documented by: Ondansetron HCl (Zofran) 4 mg IV Q6H PRN PRN Reason: Nausea Stop: 08/22/18 23:20 Polyethylene Glycol (Miralax Powder Packet) 17 gm PO DAILY PRN PRN Reason: Constipation Stop: 08/22/18 23:20
--- NOTE | 2018-07-26 14:27 | Infectious Disease Progress Nt ---
Date of Service July 26, 2018 Assessment & Plan (1) Cavitary lesion of lung: continue abx, BOBY negative. ? aspiration pna, MRSA swab +. follow blood cultures, negative to date. May benefit from bronch - routine, afb, fungal cultures. Doubt TB due to rapid onset of symptoms with negative tb screen in Oct. will follow. Subjective tolerating abx. lyme equivocal, unclear significance. axilla culture MRSA, fevers overnight tmax 39. blood cultures negative. BOBY negative for veg. for bronch in am. wbc 10 Results & Data Vital Signs (Past 12 Hours) Vital Signs Temp Pulse Resp BP Pulse Ox 07/26/18 12:20 36.8 C 62 18 116/75 92 07/26/18 10:27 63 07/26/18 08:30 36.9 C 59 L 20 105/66 93 07/26/18 04:20 37.8 C H 75 18 122/70 93 Laboratory Results Microbiology 07/26/18 11:43 Blood Cryptococcal Antigen - Final 07/24/18 Unknown Axilla,Right Gram Stain - Final 07/24/18 Unknown Axilla,Right Wound Culture - Final Staph aureus MRSA 07/23/18 20:54 Blood Aerobic Blood Culture - Preliminary No growth in Aerobic bottle after 48 hours. 07/23/18 20:54 Blood Anaerobic Blood Culture - Preliminary No growth in Anaerobic bottle after 48 hours. 07/23/18 20:29 Blood Aerobic Blood Culture - Preliminary No growth in Aerobic bottle after 48 hours. 07/23/18 20:29 Blood Anaerobic Blood Culture - Preliminary No growth in Anaerobic bottle after 48 hours.
[2018-07-26 15:00] LABS: Appearance Urine Clear (Clear); Bilirubin Urine Negative (Negative); Blood Urine Negative (Negative); Color Urine Yellow; Glucose Urine UA Negative (Negative); Ketones Urine Negative (Negative); Leukocyte Esterase Urine Negative (Negative); Nitrite Urine Negative (Negative); Protein Urine Negative (Negative); Specific Gravity Urine 1.009 (1.000-1.030); Urobilinogen Urine Negative (Negative)
[2018-07-26 15:22] LABS: Creatinine Urine Random 37.2 mg/dl; Total Protein Urine Random 8.2 mg/dl (0-11.9)
[2018-07-26] MEDS ORDERED: IBUPROFEN 800 MG TAB PO STA (17:04)
[2018-07-26] MEDS ORDERED: IMIPENEM/CILASTATIN CONSULT ACTIVE SCH (17:22)
[2018-07-26] MEDS: IMIPENEM/CILASTATIN SODIUM 500 MG in DEXTROSE 5% 100 ML IV SCH ×2 (17:51→23:44)
[2018-07-27] MEDS: VANCOMYCIN HCL 1,500 MG in SODIUM CHLORIDE 0.9% 500 ML IV SCH ×3 (03:19→20:15)
[2018-07-27] MEDS: LEVOTHYROXINE SODIUM 50 MCG TABLET PO SCH (06:05)
[2018-07-27] MEDS: IMIPENEM/CILASTATIN SODIUM 500 MG in DEXTROSE 5% 100 ML IV SCH ×4 (06:05→23:14)
[2018-07-27 07:33] LABS: Hematocrit (blood only) 38.1 % (42-52); Mean Corpuscular Hgb Conc 34.1 g/dL (32-36); Mean Corpuscular Volume 87.8 fL (80-100); Mean Platelet Volume 10.5 fL (7.4-10.4); Platelet Count 196 K/uL (130-400); RDW Coefficient of Variation 12.9 % (11.5-14.5); RDW Standard Deviation 41.9 fL (36.4-46.3); Red Blood Count 4.34 M/uL (4.7-6.1); White Blood Count 8.72 K/uL (4.8-10.8)
--- NOTE | 2018-07-27 07:58 | History & Physical Bridge Note ---
Date of Service July 27, 2018 History & Physical Bridge Note I have examined the patient, reviewed the History & Physical and in the interval since the performance of the History & Physical I have noted the following changes of clinical significance: no changes noted Supervising Physician Co-Signing Physician Notes Care coordinated with Lewis Barrett PA-C. Agree with above note. Patient seen and examined. Please refer to her notes for full details. Vital signs reviewed. Physical exam: General exam: Alert and oriented. Not in acute distress. CVS: S1 and S2 heard, regular rate and rhythm, no murmurs. RS: Clear to auscultation, no wheezing or crackles. ABD: Soft, bowel sounds present, nontender, no distention. ZONING TECHNICIAN: Nonfocal. EXT: No edema, no erythema. Labs: Reviewed. Assessment and plan:48M presents with pleuritic like chest pain, spiking temp in Er, Mild elevation of WBC, Has pimple like lesions in right axilla, hx of MRSA infection in the past, CT chest showing multiple cavitary nodules. Chest pain Multiple cavitary nodules carbuncles in right axilla hx of mrsa infections septic emboli? Jerrica's granulomatosis? no nasal blled or hematuria Fungal infection? Recent ct scan in april was unremarkable empirically started on iv vanco and cefepime will follow cultures Will check, RF, ANCA, KEVIN levels Pulmonary consult Other diagnosis and plan of care as per []. Brad power MD.
--- NOTE | 2018-07-27 07:59 | Pre Anesthesia Assessment ---
Date of Service July 27, 2018 Pre Sedation Assessment Vital Signs Temp Pulse Resp BP Pulse Ox 07/27/18 03:21 36.6 C 52 L 20 116/72 98 07/26/18 23:00 36.8 C 57 L 18 112/72 98 07/26/18 17:55 37 C 07/26/18 16:38 37.7 C H 57 L 19 113/71 95 07/26/18 12:20 36.8 C 62 18 116/75 92 07/26/18 10:27 63 07/26/18 08:30 36.9 C 59 L 20 105/66 93 Cardiovascular RRR, no murmur, no edema + peripheral pulses normal Respiratory normal respiratory effort, lungs clear to auscultation Pre-Sedation Airway Assessment Smoking Status: Never smoker Short, Thick Neck: No Thyromental Distance: > or= 3.5 Finger Breadths Oral Cavity: + Loose Teeth and + Chipped Teeth Mallampati Class: II ASA: ASA2 NPO Status Date of Last Intake of Fluids: 07/25/18 Time of Last Intake of Fluids: 07:00 Date of Last Intake of Solid Food: 07/25/18 Time of Last Intake of Solid Foods: 07:00 Notes The planned sedation has been discussed with the patient. Informed Consent was obtained. I have identified the patient, determined the appropriateness of sedation and have assessed the patient immediately prior to the procedure. All medicine(s) and interventions are by my order. Supervising Physician Co-Signing Physician Notes Care coordinated with Lewis Barrett PA-C. Agree with above note. Patient seen and examined. Please refer to her notes for full details. Vital signs reviewed. Physical exam: General exam: Alert and oriented. Not in acute distress. CVS: S1 and S2 heard, regular rate and rhythm, no murmurs. RS: Clear to auscultation, no wheezing or crackles. ABD: Soft, bowel sounds present, nontender, no distention. STRAIGHT CUTTER MACHINE: Nonfocal. EXT: No edema, no erythema. Labs: Reviewed. Assessment and plan:48M presents with pleuritic like chest pain, spiking temp in Er, Mild elevation of WBC, Has pimple like lesions in right axilla, hx of MRSA infection in the past, CT chest showing multiple cavitary nodules. Chest pain Multiple cavitary nodules carbuncles in right axilla hx of mrsa infections septic emboli? Jerrica's granulomatosis? no nasal blled or hematuria Fungal infection? Recent ct scan in april was unremarkable empirically started on iv vanco and cefepime will follow cultures Will check, RF, ANCA, KEVIN levels Pulmonary consult Other diagnosis and plan of care as per []. Brad power MD.
[2018-07-27 08:08] LABS: BUN Creatinine Ratio 10.7 (10-20); C Reactive Protein 7.38 mg/dl (0-0.29); Calcium 8.6 mg/dl (8.5-10.1); Creatinine Clr Calc Pharmacy 107.4 ml/min; Est GFR (African American) 112.1; Est GFR (Non-African American) 96.7; Potassium 4.3 mmol/L (3.5-5.1)
[2018-07-27] MEDS ORDERED: LIDOCAINE 4% INH SOLN 4 ML BTL ONE (09:05)
[2018-07-27] MEDS ORDERED: OXYMETAZOLINE 0.05% 30 ML BTL ONE (09:05)
[2018-07-27] MEDS ORDERED: LIDOCAINE HCL VISCOUS SOLN 2% 15 ML UDC MT ONE (09:34)
[2018-07-27] MEDS ORDERED: MIDAZOLAM HCL 1 MG/ML 2ML VIAL IV STA (09:34)
[2018-07-27] MEDS ORDERED: fentaNYL citrate 100 MCG/2 ML VIAL IV ONE (09:34)
[2018-07-27] MEDS ORDERED: LEVALBUTEROL HCL 1.25 MG/3 ML NEB NEB STA (09:34)
--- NOTE | 2018-07-27 09:54 | Post Operative Brief Note ---
Immediate Post Op Note v1 Date of Surgery July 27, 2018 Pre & Post Diagnosis Operation Date: 07/25/18 15:30 <No data on this case meets the specified criteria> Operation Date: 07/27/18 09:00 Pre-Op Diagnosis: Cavitating Pulmonary Nodules Post-Op Diagnosis: Cavitating Pulmonary Nodules/LYNN Procedure Operation Date: 07/25/18 15:30 Actual Procedures p Transesophageal Echo w/Anesthesia - Lisandro Orona DO Operation Date: 07/27/18 09:00 Actual Procedures p Bronchoscopy Radiology - Nate Calderon MD Surgeon Nate Calderon MD Air Press Operator none Estimated Blood Loss 0 Findings Consistent with Post-Op Diagnosis Cavitating pulm nodules/fever Complications none Disposition Accompanied Patient To Recovery: No Overlapping Procedure I was present for: the critical portions of procedure. I was immediately available: during the entire case. Back up surgeon: was not required during procedure.
--- NOTE | 2018-07-27 09:55 | Post Anesthesia Assessment ---
Date of Service July 27, 2018 Post Sedation Assessment Vital Signs Temp Pulse Resp BP BP Pulse Ox 07/27/18 09:43 107 H 16 124/72 90 07/27/18 09:40 91 H 16 110/73 94 07/27/18 09:35 94 H 16 114/73 92 07/27/18 09:30 104 H 16 129/82 97 07/27/18 09:25 110 H 14 114/76 98 07/27/18 09:20 14 128/74 99 07/27/18 09:15 14 119/80 99 07/27/18 09:05 14 118/75 99 07/27/18 09:00 14 126/77 97 07/27/18 03:21 36.6 C 52 L 20 116/72 98 07/26/18 23:00 36.8 C 57 L 18 112/72 98 07/26/18 17:55 37 C 07/26/18 16:38 37.7 C H 57 L 19 113/71 95 07/26/18 12:20 36.8 C 62 18 116/75 92 07/26/18 10:27 63 Recovery Score Activity: Moves 4 extremities Respiration: Deep Breath/Cough Circulation: +/-20% PreAnes Value Consciousness: Arouseable (by name) Oxygen Saturation: O2 needed for >90% Post Anesthesia Score: 8 Discharge Sedation Level of Care: Fast Track Phase II Post Sedation Plan On clinical assessment, the patient appears to have tolerated the sedation without complications. Patient is recovering as anticipated. Patient will continue to be monitored by nursing and may be discharged when sedation discharge criteria are met per below protocol. Upon Completions of procedure and additional 15 minutes continue every 5 minute vital signs and the P.A.R. score; then discharge to a Phase I or Fast Track to Phase II per the following guidelines: * Discharge Patient to appropriate Phase II area if PAR is 8 or greater or return to pre- procedure baseline. The post - procedure orders will be as directed. * If PAR score is less than 8 or not return to pre-procedure baseline then patient will follow Phase I monitoring till PAR is reached for Phase II. The Phase I may be done in procedure room or may call to secure a Phase I area. * If naloxone or flumazenil are used for reversal, hold in Phase I for continued monitoring from when last reversal dose was given for a minimum of 60 minutes or longer pending the nurse and/or physician discretion of patient condition before discharge to Phase II. Please call the Sedation Physician to re-evaluate and complete post-note for discharge to Phase II area. Do NOT discharge from procedure sedation or Phase 1 until post- sedation evaluation note is complete by procedure /sedation MD Sedation Discharge Instructions to be given to the patient at discharge to home. Supervising Physician Co-Signing Physician Notes Care coordinated with Lewis Barrett PA-C. Agree with above note. Patient seen and examined. Please refer to her notes for full details. Vital signs reviewed. Physical exam: General exam: Alert and oriented. Not in acute distress. CVS: S1 and S2 heard, regular rate and rhythm, no murmurs. RS: Clear to auscultation, no wheezing or crackles. ABD: Soft, bowel sounds present, nontender, no distention. WIPER BLENDER: Nonfocal. EXT: No edema, no erythema. Labs: Reviewed. Assessment and plan:48M presents with pleuritic like chest pain, spiking temp in Er, Mild elevation of WBC, Has pimple like lesions in right axilla, hx of MRSA infection in the past, CT chest showing multiple cavitary nodules. Chest pain Multiple cavitary nodules carbuncles in right axilla hx of mrsa infections septic emboli? Jerrica's granulomatosis? no nasal blled or hematuria Fungal infection? Recent ct scan in april was unremarkable empirically started on iv vanco and cefepime will follow cultures Will check, RF, ANCA, KEVIN levels Pulmonary consult Other diagnosis and plan of care as per []. Brad power MD.
[2018-07-27] MEDS: NICOTINE 14 MG/24 HR PATCH TD SCH (10:19)
--- NOTE | 2018-07-27 10:51 | Progress Note ---
DATE: 07/27/2018 PULMONARY MEDICINE PROGRESS NOTE Chart reviewed, the patient examined and assessed. SUBJECTIVE: The patient anxious to go home. Still coughing. Running a low-grade temperature elevation, scheduled for bronchoscopy this morning. Underwent the procedure with BAL especially from the left upper lobe where in the periphery a cavitating nodule was noted along with pulmonary nodulosis seen throughout both right and left lower lung calloway. The mucosa was irregular at the takeoff of left upper lobe. There was a narrowing of the anterior segment. These areas were washed and brushed for culture and cytologic preparation. The patient tolerated the procedure well. PHYSICAL EXAMINATION: CURRENT VITAL SIGNS: Blood pressure 124/72, pulse 107 and regular, respiratory rate 16, temperature 36.6, O2 sat 90% on 4 liters. SKIN: Without lesion. HEENT: Atraumatic, normocephalic. PERRLA. LUNGS: Distant P and A. CARDIAC: Regular rhythm. I do not appreciate a gallop. ABDOMEN: Soft, scaphoid. No evidence of hepatosplenomegaly. EXTREMITIES: No pedal edema, clubbing or cyanosis. NEUROLOGIC: Intact. OVERALL ASSESSMENT: A 48-year-old white male who remains febrile, past and current history of Methicillin-resistant Staphylococcus aureus infection of the skin, now with pulmonary nodulosis with a left upper lobe cavitating nodule. The patient underwent fiberoptic bronchoscopy with bronchoalveolar lavage with copious lavage of the left upper lobe respective segments and subsegmental bronchi. Mucosal irregularity with friability was noted and brushings were also obtained for cytologic preparation. Cultures have been planted. No biopsies were obtained today and we will await the culture results as well as evaluation for cytologic preparation.
[2018-07-27] MEDS ORDERED: ACETAMINOPHEN 1,000 MG/100 ML VIAL IV STA (10:52)
--- NOTE | 2018-07-27 11:09 | Operative Report ---
DATE OF OPERATION: 07/27/2018 TIME: 0900 hours. PROCEDURE: Fiberoptic bronchoscopy with bronchoalveolar lavage. INDICATIONS: Multiple pulmonary nodules with cavitating left upper lobe peripheral nodule/history of MRSA infection/persistent fever and respiratory symptoms. ANESTHESIA PREOPERATIVELY: None. ANESTHESIA DURING PROCEDURE: IV fentanyl 100 mcg, IV Versed 7 mg, 20 mL of 2% Xylocaine spray above and below the cords, 4% viscous Xylocaine intranasally. DESCRIPTION OF PROCEDURE: Moderate conscious sedation was utilized and implemented at 0918 and completed at 0934. Fiberoptic bronchoscope was inserted into the left naris with minimal difficulty and passed to the level of the true vocal cords. The cords appeared to approximate normally with phonation without evidence for lesions or paralysis. The area was anesthetized with 2% Xylocaine spray. The scope was passed through the cords into the trachea which was within normal limits and the jaqui was sharp. The right main stem bronchus was explored. No endobronchial lesions were seen. Right upper lobe, the apical posterior and anterior segments, bronchus intermedius, right middle lobe and the medial lateral segments, and all basilar segments of right lower lobe were copiously lavaged with normosol and the aspirate sent for appropriate studies. Left tracheobronchial tree was explored and no endobronchial lesions seen. Left upper lobe, the apical-posterior and anterior segments were found to be free of endobronchial lesions, but severe inflammatory mucosal change was seen with narrowing of the anterior segment. No obvious endobronchial lesion was seen in the lingula subdivision with the superior and inferior segments and all basilar segments of the left lower lobe were free of endobronchial lesions. Left upper lobe was then copiously lavaged with normosol and each segmental and subsegmental bronchus was lavaged individually and the aspirate sent for appropriate studies. Brushings were taken due to some mild mucosal irregularity at the takeoff of the left upper lobe bronchus x2 and from the fish mouthed and narrowed anterior segment for cytologic preparation. No biopsies were obtained. A mild amount of bleeding was encountered which abated spontaneously. The procedure was terminated. The patient was given a nebulizer treatment with Xopenex 1.25 mg and then transferred back to the medical floor hemodynamically stable and no signs of respiratory compromise. We will await microbiological and cytologic examination of the bronchial washings and brushings. Procedure was done with patient in contact and respiratory isolation. I attest to the content of the Intraoperative Record and any orders documented therein. Any exception s are noted below.
[2018-07-27] MEDS ORDERED: VANCOMYCIN TROUGH ONE (11:30)
[2018-07-27] MEDS ORDERED: SODIUM CHLORIDE 0.9% 1000ML 1,000 ML IV SCH (12:00)
[2018-07-27 12:36] LABS: Quantiferon Mitogen-NIL >10.00 IU/ML; Quantiferon NIL 0.12 IU/ML; Quantiferon TB Gold Plus NEGATIVE (NEGATIVE); Quantiferon TB1-NIL 0.01 IU/ML; Quantiferon TB2-NIL <0.00 IU/ML
--- NOTE | 2018-07-27 13:40 | Pharmacy Report ---
Pharmacy Abx Dose Short Note - Date of Service July 27, 2018 - Assessment & Plan Assessment * 48 year old M with a cavitary lung lesion with ongoing work up including bronch today / acid fast bacilli assessment / fungal assessment * ID and pulmonary services following * Currently on imipenem (day 2) and vancomycin (day 5) * SCr stable and at/near baseline * WBC has trended down, but patient remains febrile Vancomycin * Goal vancomycin trough 15-20 mcg/mL * Trough of 17.2 mcg/mL is therapeutic. This was drawn at/near steady state and timing of draw was appropriate as compared to previous vancomycin dose. Do not anticipate significant accumulation for BSG < 30 kg/m2 * Continue current dose * Will check early repeat level 2nd higher dose utilized to maintain therapeutic trough (~17 mg/kg IV q8h) Plan * Continue vancomycin 1500 mg IV q8h * Trough 07/29 @ 0330 Pharmacy will continue to follow and will adjust dose/frequency as necessary. Thank you.
--- NOTE | 2018-07-27 13:50 | Infectious Disease Progress Nt ---
Date of Service July 27, 2018 Assessment & Plan (1) Cavitary lesion of lung: continue abx, BOBY negative. ? aspiration pna, MRSA swab +. follow blood cultures, negative to date. s/p bronch earlier today. - routine, afb, fungal cultures pending, follow results.. Doubt TB due to rapid onset of symptoms with negative tb screen in Oct. will follow. Subjective s/p bronch today, cultures pending. changed to imipenem yesterday due to rash and h/o pcn allergy. afebrile, fever curve overall improved, 37.7, isolated last night. blood cultures remain negative. ESR 55, wbc 8.7, fungal serologies pending. IGRA pending Results & Data Vital Signs (Past 12 Hours) Vital Signs Temp Pulse Pulse Pulse Resp BP BP 07/27/18 11:32 37.2 C 67 20 117/74 07/27/18 11:00 37.8 C H 73 20 124/75 07/27/18 10:45 38 C H 77 18 07/27/18 10:00 37.9 C H 78 18 07/27/18 09:43 107 H 16 07/27/18 09:40 91 H 16 07/27/18 09:35 94 H 16 07/27/18 09:30 104 H 16 07/27/18 09:25 110 H 14 07/27/18 09:20 14 07/27/18 09:15 14 07/27/18 09:05 14 07/27/18 09:00 14 07/27/18 03:21 36.6 C 52 L 20 116/72 BP Pulse Ox 07/27/18 11:32 93 07/27/18 11:00 95 07/27/18 10:45 122/70 95 07/27/18 10:00 118/73 93 07/27/18 09:43 124/72 90 07/27/18 09:40 110/73 94 07/27/18 09:35 114/73 92 07/27/18 09:30 129/82 97 07/27/18 09:25 114/76 98 07/27/18 09:20 128/74 99 07/27/18 09:15 119/80 99 07/27/18 09:05 118/75 99 07/27/18 09:00 126/77 97 07/27/18 03:21 98 Laboratory Results Microbiology 07/25/18 15:25 Blood Aerobic Blood Culture - Preliminary No growth in Aerobic bottle after 24 hours. 07/25/18 15:25 Blood Anaerobic Blood Culture - Final 07/25/18 15:18 Blood Aerobic Blood Culture - Preliminary No growth in Aerobic bottle after 24 hours. 07/25/18 15:18 Blood Anaerobic Blood Culture - Preliminary No growth in Anaerobic bottle after 24 hours. 07/26/18 11:43 Blood Cryptococcal Antigen - Final 07/24/18 Unknown Axilla,Right Gram Stain - Final 07/24/18 Unknown Axilla,Right Wound Culture - Final Staph aureus MRSA 07/23/18 20:54 Blood Aerobic Blood Culture - Preliminary No growth in Aerobic bottle after 48 hours. 07/23/18 20:54 Blood Anaerobic Blood Culture - Preliminary No growth in Anaerobic bottle after 48 hours. 07/23/18 20:29 Blood Aerobic Blood Culture - Preliminary No growth in Aerobic bottle after 48 hours. 07/23/18 20:29 Blood Anaerobic Blood Culture - Preliminary No growth in Anaerobic bottle after 48 hours.
[2018-07-27] MEDS: IBUPROFEN 800 MG TAB PO PRN (13:53)
--- NOTE | 2018-07-27 17:34 | Ultrasound Report ---
US venous doppler UE BI CLINICAL HISTORY: 48 years-old Male presenting with neck only, r/o venous clot/abcess. TECHNIQUE: Real-time grayscale and color and spectral Doppler ultrasound imaging of the veins of the bilateral upper extremities was performed. Compression and augmentation were also utilized. COMPARISON: None. FINDINGS: RIGHT: Internal jugular vein: Patent. Subclavian vein: Not interrogated. Axillary vein: Not interrogated. Brachial vein: Not interrogated. Basilic vein (superficial): Not interrogated. Cephalic vein (superficial): Not interrogated. Radial vein: Not interrogated. Ulnar vein: Not interrogated. LEFT: Internal jugular vein: Patent. Subclavian vein: Not interrogated. Axillary vein: Not interrogated. Brachial vein: Not interrogated. Basilic vein (superficial): Not interrogated. Cephalic vein (superficial): Not interrogated. Radial vein: Not interrogated. Ulnar vein: Not interrogated. Other: Benign morphology though prominent lymph node in the right neck, likely reactive. IMPRESSION: No evidence of deep venous thrombosis in the bilateral internal jugular veins. Electronically signed by: Michael Mendoza M.D. 07/27/2018 5:33 PM
--- NOTE | 2018-07-27 18:12 | Hospitalist Progress Note ---
Date of Service July 27, 2018 Assessment & Plan (1) Septic pulmonary embolism: (2) Febrile illness: Acute persistent fever and pleuritic chest pain with multiple poorly defined nodules on CT chest including a cavitary lesion. DDX includes but not limited to GPA, disseminated coccioides/histoplasmosis, infectious septic emboli (BOBY ruled out vegetation and lower risk for IE although does have poor dentition), MRSA, Lyme disease (no tick bite remembered) Additionally, he had an acute monoarticular arthritis of the knee that appeared without trauma in May 2018. He was seen and diagnosed with a meniscal tear, but never followed up for further workup as it resolved in a few days. This arthritis then affected the other knee with the same process. Lyme IgM is equivocal. Cont cefepime until returns negative. Cont Vanc/Imipenem pending further study results. Repeat blood cultures are negative. ? if source may be periodontal disease. Case studies reveal a connection between chronic periodontitis and SPE. He has a supraclavicular lymph node present-opposite side from his axilla and very poor dentition. US neck veins did not reveal evidence of a clot or other filling defect. Will obtain CT face and neck in am. Interestingly, studies report that SPE from periodontal disease may result in negative blood cultures as there is only a small amount of bacteria seeded as opposed to something like endocarditis. Continuing to await rheumatologic studies, bronch washings from today and other serologies. (3) MRSA (methicillin resistant Staphylococcus aureus) infection: axillary MRSA positive infection. Cont Vanc as planned above. (4) Hypothyroidism: Continue levothyroxine. (5) Depression: recently stopped Celexa as he couldn't tolerate it. (6) PFO (patent foramen ovale): discovered on BOBY (7) DVT prophylaxis: Lovenox, given this am but will hol Full Dispo-to home when medically stable. 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 Jennifer Banuelos DO [facility] Hospitalist Subjective feverish with chills persist he is antsy in his room, unable to leave he is expressing a desire to go home He reports persistent chest pain with maybe some minor improvement new purpura to eyelids chest rash from yesterday is improved Review of Systems Review of Systems: All systems reviewed & are unremarkable except as noted in HPI & below Physical Exam Physical Exam: CONSTITUTIONAL: WNWD, vitals as above, generally well appearing EYES: normal conjunctivae, no scleral icterus ENT: MMM, poor decayed dentition after through mouth exam, multiple nicotine stains to teeth, no obvious abscess or tenderness to gums. No sinus TTP, no submandibular or cervical LAD. +supraclavicular LN present L>R RESPIRATORY: clear to auscultation bilaterally, no crackles, rales or wheezes, normal respiratory effort CARDIOVASCULAR: regular rate and rhythm, S1 and 2 heard without murmurs, gallops or rubs, no JVD, no peripheral edema GASTROINTESTINAL: normal bowel sounds, soft, nontender, nondistended MUSCULOSKELETAL: strength 5/5 throughout, head is normocephalic and atraumatic, neck supple, normal palpation of chest wall without tenderness, +R axillary erythematous nodules that are tender SKIN: warm and dry, rash across center chest is resolving. JOINTs: all evaluated and no swelling, inflammation or restricted ROM at this time. NEUROLOGIC: CN 2-12 grossly intact, no gross focal deficit. PSYCHIATRIC: alert cooperative and oriented to person, place and time Results & Data Vital Signs (Past 12 Hours) Vital Signs Temp Pulse Pulse Pulse Resp BP BP 07/27/18 15:00 36.8 C 56 L 20 118/74 07/27/18 11:32 37.2 C 67 20 117/74 07/27/18 11:00 37.8 C H 73 20 124/75 07/27/18 10:45 38 C H 77 18 122/70 07/27/18 10:00 37.9 C H 78 18 118/73 07/27/18 09:43 107 H 16 124/72 07/27/18 09:40 91 H 16 110/73 07/27/18 09:35 94 H 16 114/73 07/27/18 09:30 104 H 16 129/82 07/27/18 09:25 110 H 14 114/76 07/27/18 09:20 14 128/74 07/27/18 09:15 14 119/80 07/27/18 09:05 14 118/75 07/27/18 09:00 14 126/77 Pulse Ox 07/27/18 15:00 94 07/27/18 11:32 93 07/27/18 11:00 95 07/27/18 10:45 95 06/19/19 10:00 93 07/27/18 09:43 90 07/27/18 09:40 94 07/27/18 09:35 92 07/27/18 09:30 97 07/27/18 09:25 98 07/27/18 09:20 99 07/27/18 09:15 99 07/27/18 09:05 99 07/27/18 09:00 97 Laboratory Results Short CBC 07/27/18 Range/Units 07:09 WBC 8.72 (4.8-10.8) K/uL Hgb 13.0 L (14.0-18.0) g/dL Hct 38.1 L (42-52) % Plt Count 196 (130-400) K/uL BMP 07/27/18 07:09 Sodium 143 Potassium 4.3 Chloride 110 H Carbon Dioxide 30 BUN 10 Creatinine 0.93 Glucose 97 Calcium 8.6 Medications Administered Current Inpatient Medications Acetaminophen (Tylenol) 650 mg PO Q4H PRN PRN Reason: Pain or Fever Stop: 08/22/18 23:20 Last Admin: 07/26/18 16:21 Dose: 650 mg Documented by: Al Hydrox/Mg Hydrox/Simethicone (Maalox) 15 ml PO Q4H PRN PRN Reason: Dyspepsia Stop: 08/22/18 23:20 Diphenhydramine HCl (Benadryl Capsule) 25 mg PO Q6 PRN PRN Reason: itching or rash Stop: 08/25/18 17:07 Enoxaparin Sodium (Lovenox) 40 mg SQ QAM [facility] Stop: 08/25/18 08:59 Last Admin: 07/26/18 09:55 Dose: 40 mg Documented by: Vancomycin HCl 1,500 mg/ (Sodium Chloride) 530 mls @ 200 mls/hr IV Q8H HÉCTOR Stop: 07/31/18 07:59 Last Infusion: 07/27/18 16:53 Dose: Infused Documented by: Imipenem/Cilastatin Sodium 500 (mg/ Dextrose) 110 mls @ 110 mls/hr IV Q6H HÉCTOR Stop: 08/02/18 17:59 Last Admin: 07/27/18 18:06 Dose: 110 mls/hr Documented by: Ibuprofen (Motrin) 800 mg PO Q8H PRN PRN Reason: pain/fever Stop: 08/25/18 17:07 Last Admin: 07/27/18 13:53 Dose: 800 mg Documented by: Ioversol (Optiray 320 125ml) 119 ml IV ONCE PRN PRN Reason: Interaction Checking Stop: 07/27/18 19:43 Last Admin: 07/23/18 19:45 Dose: 119 ml Documented by: Levothyroxine Sodium (Synthroid) 50 mcg PO DAILYBB HÉCTOR Stop: 08/25/18 06:29 Last Admin: 07/27/18 06:05 Dose: 50 mcg Documented by: Magnesium Hydroxide (Milk Of Magnesia) 30 ml PO Q12H PRN PRN Reason: Constipation Stop: 08/22/18 23:20 Miscellaneous (Remove Nicoderm Patch) 1 ea N/A HS [facility] Stop: 08/23/18 20:59 Last Admin: 07/26/18 20:23 Dose: 1 ea Documented by: Miscellaneous Information (Consult) 1 ea N/A UD PRN PRN Reason: Consult Stop: 08/22/18 23:20 Miscellaneous Information (Consult) 1 ea N/A UD [facility] Stop: 08/25/18 17:21 Nicotine (Nicoderm Cq) 14 mg TD QAM [facility] Stop: 08/23/18 12:14 Last Admin: 07/27/18 10:19 Dose: 14 mg Documented by: Ondansetron HCl (Zofran) 4 mg IV Q6H PRN PRN Reason: Nausea Stop: 08/22/18 23:20 Polyethylene Glycol (Miralax Powder Packet) 17 gm PO DAILY PRN PRN Reason: Constipation Stop: 08/22/18 23:20 Zolpidem Tartrate (Ambien) 5 mg PO HS PRN PRN Reason: Sleep Stop: 08/26/18 15:57
[2018-07-27] MEDS: ZOLPIDEM TARTRATE 5 MG TAB PO PRN (22:01)
[2018-07-28] MEDS: VANCOMYCIN HCL 1,500 MG in SODIUM CHLORIDE 0.9% 500 ML IV SCH ×3 (04:03→22:00)
[2018-07-28] MEDS: LEVOTHYROXINE SODIUM 50 MCG TABLET PO SCH (06:29)
[2018-07-28 08:04] LABS: Basophils # (auto) 0.03 K/uL (0-0.2); Basophils % (auto) 0.3 %; Eosinophils # (auto) 0.39 K/uL (0-0.5); Eosinophils % (auto) 4.2 %; Hematocrit (blood only) 35.5 % (42-52); Hemoglobin 12.1 g/dL (14.0-18.0); Immature Granulocytes # (auto) 0.02 K/uL (0.00-0.02); Immature Granulocytes % (auto) 0.2 %; Lymphocytes # (auto) 1.22 K/uL (1.2-3.4); Lymphocytes % (auto) 13.2 %; Mean Corpuscular Hgb Conc 34.1 g/dL (32-36); Mean Platelet Volume 9.8 fL (7.4-10.4); Monocytes # (auto) 1.19 K/uL (0.11-0.59); Monocytes % (auto) 12.9 %; Neutrophils % (auto) 69.2 %; Platelet Count 207 K/uL (130-400); RDW Standard Deviation 41.8 fL (36.4-46.3); Red Blood Count 4.08 M/uL (4.7-6.1); White Blood Count 9.25 K/uL (4.8-10.8)
[2018-07-28] MEDS ORDERED: IOVERSOL 100ml IV PRN (08:29)
[2018-07-28 08:32] LABS: BUN Creatinine Ratio 12.4 (10-20); Calcium 8.6 mg/dl (8.5-10.1); Creatinine Clr Calc Pharmacy 104.1 ml/min; Est GFR (African American) 107.9; Est GFR (Non-African American) 93.1; Potassium 4.4 mmol/L (3.5-5.1)
--- NOTE | 2018-07-28 08:44 | CT Scan Report ---
Study: CT soft tissue neck HISTORY: Septic emboli. FINDINGS: The major salivary glands are symmetric. The airway is intact. The glottic and subglottic r egions are unremarkable. Several small reactive cervical nodes all which are less than 8 mm. No significant or bulky adenopath y is appreciated. There is a consolidative infiltrate posterior aspect left pulmonary apex. IMPRESSION: 1. Negative CT soft tissue neck. 2. Consolidative infiltrate posterior aspect left pulmonary apex. Electronically signed by: Dhaval Jenkins M.D. 07/28/2018 8:42 AM
--- NOTE | 2018-07-28 08:53 | CT Scan Report ---
CT facial bones w con CT DOSE: 517.40 mGy.cm CLINICAL HISTORY: poor dentition, +septic pulm emboli, ?source clavicular swelling TECHNIQUE: The patient was scanned in a dynamic helical fashion during intravenous administration of 94 cc of Optiray 320. A dose lowering technique was utilized adhering to the principles of ALARA. COMPARISON STUDY: None. FINDINGS: The visualized portions of the intracranial contents are unremarkable. No orbital masses are visualized. There is no evidence of pathologic adenopathy. No facial fractures are visualized. There is minor left maxilla sinus mucosal thickening. There are no findings to indicate acute sinusit is. There are no fluid collections suspicious for abscess. There are several dental caries. There is no evidence for dental abscess. IMPRESSION: 1. Minor left maxillary sinus mucosal thickening. No evidence of acute sinusitis 2. No evidence of pathologic adenopathy 3. No pathologic soft tissue masses 4. No evidence of abscess 5. Several dental caries are visualized. No evidence of dental abscess. Electronically signed by: Ned Wyman M.D. 07/28/2018 8:52 AM
--- NOTE | 2018-07-28 09:20 | Hospitalist Progress Note ---
Date of Service July 28, 2018 Assessment & Plan (1) Septic pulmonary embolism: ? if source may be periodontal disease. Case studies reveal a connection between chronic periodontitis and SPE. There is cervical LAD seen on face/neck CT from today. CT and US neck last night did not reveal evidence of a suppurative thrombophlebitis or other clearcut vascular etiology for septic pulmonary emboli. So far, Lyme is negative, fungal studies negative, active and latent TB has been ruled out with negative AFB and negative quantiferon, respectively. Bronch washings reveal inflammatory changes on pathology specimen and gram stain reveals polymicrobial with speciation pending. KEVIN, RF and ANCA are still pending. Two sets of blood cultures are negative. Cont antibiotics for now and will likely need antibiotics for the next couple of weeks in addition to a thorough odontogenic evaluation by an ENT physician as outpatient. (2) MRSA (methicillin resistant Staphylococcus aureus) infection: axillary MRSA positive infection. Cont Vanc as planned above. Once lung pathology is more clear, will work with ID to transition him to an oral agent. (3) Hypothyroidism: Continue levothyroxine. (4) Depression: recently stopped Celexa as he couldn't tolerate it. (5) PFO (patent foramen ovale): discovered on BOBY, discussed this finding with the patient. (6) DVT prophylaxis: Lovenox Full Dispo-to home when medically stable. 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 Jennifer Banuelos DO [facility] Hospitalist Subjective Patient reports he is feeling about the same. Enlarged lymph node yesterday and left supraclavicular area has resolved. No other palpable cervical adenopathy is present. Reports chest pain is the same is located in left lower anterior chest. Right axillary infection is improving. Afebrile in the last 24 hours with last temperature 11:00 yesterday morning. He is tolerating p.o. Denies any coughing. Vascular phenomena on eyelids appears to be improved. I reviewed the CT studies from 07/23 and earlier this morning with the patient and showed him the imaging. Review of Systems Review of Systems: All systems reviewed & are unremarkable except as noted in HPI & below Physical Exam Physical Exam: CONSTITUTIONAL: WNWD, vitals as above, generally well appearing EYES: normal conjunctivae, no scleral icterus ENT: MMM, poor decayed dentition, multiple nicotine stains to teeth, no obvious abscess or tenderness to gums. No sinus TTP, no submandibular or cervical LAD. +supraclavicular LN from yesterday has resolved. RESPIRATORY: clear to auscultation bilaterally, no crackles, rales or wheezes, normal respiratory effort CARDIOVASCULAR: regular rate and rhythm, S1 and 2 heard without murmurs, gallops or rubs, no JVD, no peripheral edema GASTROINTESTINAL: normal bowel sounds, soft, nontender, nondistended MUSCULOSKELETAL: strength 5/5 throughout, head is normocephalic and atraumatic, neck supple, normal palpation of chest wall without tenderness, +R axillary erythematous nodules that are tender SKIN: warm and dry, rash across center chest is resolving. Axillary erythemat ous pustules present and improved, no prominent axillary LNs are palpable. NEUROLOGIC: CN 2-12 grossly intact, no gross focal deficit. PSYCHIATRIC: alert cooperative and oriented to person, place and time Results & Data Vital Signs (Past 12 Hours) Vital Signs Temp Pulse Resp BP Pulse Ox 07/28/18 07:04 37.0 C 67 19 105/65 92 07/27/18 22:52 37.1 C 64 19 139/78 94 Laboratory Results Short CBC 07/28/18 Range/Units 07:42 WBC 9.25 (4.8-10.8) K/uL Hgb 12.1 L (14.0-18.0) g/dL Hct 35.5 L (42-52) % Plt Count 207 (130-400) K/uL [facility] 07/28/18 07:42 Sodium 141 Potassium 4.4 Chloride 108 H Carbon Dioxide 29 BUN 12 Creatinine 0.96 Glucose 93 Calcium 8[address] facial bones w con CLINICAL HISTORY: poor dentition, +septic pulm emboli, ?source clavicular swelling FINDINGS: The visualized portions of the intracranial contents are unremarkable. No orbital masses are visualized. There is no evidence of pathologic adenopathy. No facial fractures are visualized. There is minor left maxilla sinus mucosal thickening. There are no findings to indicate acute sinusitis. There are no fluid collections suspicious for abscess. There are several dental caries. There is no evidence for dental abscess. IMPRESSION: 1. Minor left maxillary sinus mucosal thickening. No evidence of acute sinusitis 2. No evidence of pathologic adenopathy 3. No pathologic soft tissue masses 4. No evidence of abscess 5. Several dental caries are visualized. No evidence of dental abscess. Study: CT soft tissue neck HISTORY: Septic emboli. FINDINGS: The major salivary glands are symmetric. The airway is intact. The glottic and subglottic regions are unremarkable. Several small reactive cervical nodes all which are less than 8 mm. No significant or bulky adenopathy is appreciated. There is a consolidative infiltrate posterior aspect left pulmonary apex. IMPRESSION: 1. Negative CT soft tissue neck. 2. Consolidative infiltrate posterior aspect left pulmonary apex. Medications Administered Current Inpatient Medications Acetaminophen (Tylenol) 650 mg PO Q4H PRN PRN Reason: Pain or Fever Stop: 08/22/18 23:20 Last Admin: 07/26/18 16:21 Dose: 650 mg Documented by: Al Hydrox/Mg Hydrox/Simethicone (Maalox) 15 ml PO Q4H PRN PRN Reason: Dyspepsia Stop: 08/22/18 23:20 Diphenhydramine HCl (Benadryl Capsule) 25 mg PO Q6 PRN PRN Reason: itching or rash Stop: 08/25/18 17:07 Enoxaparin Sodium (Lovenox) 40 mg SQ QAM [facility] Stop: 08/25/18 08:59 Last Admin: 07/26/18 09:55 Dose: 40 mg Documented by: Vancomycin HCl 1,500 mg/ (Sodium Chloride) 530 mls @ 200 mls/hr IV Q8H [facility] Stop: 07/31/18 07:59 Last Infusion: 07/28/18 06:47 Dose: Infused Documented by: Imipenem/Cilastatin Sodium 500 (mg/ Dextrose) 110 mls @ 110 mls/hr IV Q6H [facility] Stop: 08/02/18 17:59 Last Infusion: 07/28/18 01:07 Dose: Infused Documented by: Ibuprofen (Motrin) 800 mg PO Q8H PRN PRN Reason: pain/fever Stop: 08/25/18 17:07 Last Admin: 07/27/18 13:53 Dose: 800 mg Documented by: Ioversol (Optiray 320 100ml) 94 ml IV ONCE PRN PRN Reason: Interaction Checking Stop: 08/01/18 08:28 Last Admin: 07/28/18 08:30 Dose: 94 ml Documented by: Levothyroxine Sodium (Synthroid) 50 mcg PO DAILYBB [facility] Stop: 08/25/18 06:29 Last Admin: 07/28/18 06:29 Dose: 50 mcg Documented by: Magnesium Hydroxide (Milk Of Magnesia) 30 ml PO Q12H PRN PRN Reason: Constipation Stop: 08/22/18 23:20 Miscellaneous (Remove Nicoderm Patch) 1 ea N/A HS [facility] Stop: 08/23/18 20:59 Last Admin: 07/27/18 20:15 Dose: 1 ea Documented by: Miscellaneous Information (Consult) 1 ea N/A UD PRN PRN Reason: Consult Stop: 08/22/18 23:20 Miscellaneous Information (Consult) 1 ea N/A UD [facility] Stop: 08/25/18 17:21 Nicotine (Nicoderm Cq) 14 mg TD QAM [facility] Stop: 08/23/18 12:14 Last Admin: 07/27/18 10:19 Dose: 14 mg Documented by: Ondansetron HCl (Zofran) 4 mg IV Q6H PRN PRN Reason: Nausea Stop: 08/22/18 23:20 Polyethylene Glycol (Miralax Powder Packet) 17 gm PO DAILY PRN PRN Reason: Constipation Stop: 08/22/18 23:20 Zolpidem Tartrate (Ambien) 5 mg PO HS PRN PRN Reason: Sleep Stop: 08/26/18 15:57 Last Admin: 07/27/18 22:01 Dose: 5 mg Documented by:
[2018-07-28] MEDS: IMIPENEM/CILASTATIN SODIUM 500 MG in DEXTROSE 5% 100 ML IV SCH ×4 (09:24→22:05)
[2018-07-28] MEDS: NICOTINE 14 MG/24 HR PATCH TD SCH (09:24)
[2018-07-28] MEDS: IBUPROFEN 800 MG TAB PO PRN (09:25)
[2018-07-28 11:48] LABS: 18KDIGG Band NONREACTIVE (NONREACTIVE); 23KDIGG Band NONREACTIVE (NONREACTIVE); 23KDIGM Band NONREACTIVE (NONREACTIVE); 28KDIGG Band NONREACTIVE (NONREACTIVE); 30KDIGG Band NONREACTIVE (NONREACTIVE); 39KDIGG Band NONREACTIVE (NONREACTIVE); 39KDIGM Band NONREACTIVE (NONREACTIVE); 41KDIGG Band REACTIVE (NONREACTIVE); 41KDIGM Band NONREACTIVE (NONREACTIVE); 45KDIGG Band NONREACTIVE (NONREACTIVE); 58KDIGG Band NONREACTIVE (NONREACTIVE); 66KDIGG Band NONREACTIVE (NONREACTIVE); 93KDIGG Band NONREACTIVE (NONREACTIVE); Lyme Antibodies, WB IgG NEGATIVE (NEGATIVE); Lyme Antibodies, WB IgM NEGATIVE (NEGATIVE)
[2018-07-28] MEDS ORDERED: Nursing to Pharmacy Communication ONE (13:41)
--- NOTE | 2018-07-28 14:46 | Infectious Disease Progress Nt ---
Date of Service July 28, 2018 Assessment & Plan (1) Cavitary lesion of lung: will continue abx for now, blood cultures negative, bronch culture pending. AFB smear negative, IGRA negative, can remove airborne precautions. Subjective pt still not feeling well. no f/c today. tolerating abx. blood cultures remain negative. denies any abx block captain. bronch culture with pinpoint growth, afb smear and IGRA negative. denies any vomiting/aspiration episodes block captain. family at bedside. still with some pleuritic cp on left side. no cough, no n/v/d/abd pain, eating well. Review of Systems Review of Systems: All systems reviewed & are unremarkable except as noted in HPI & below Physical Exam Constitutional: WD/WN, vitals as above Eyes: PERRL, conjunctivae normal, anicteric sclerae ENMT: external ear and nose normal, oropharynx normal Neck: normal visual inspection Respiratory: normal respiratory effort, lungs clear to auscultation Cardiovascular: RRR, no murmur, no edema Gastrointestinal (Abdomen): normal bowel sounds, soft, nontender, no hepatosplenomegaly Musculoskeletal: no cyanosis or clubbing, extremities motor strength 5/5 Skin: no rashes, warm and dry Psychiatric: A+Ox3, euthymic affect Results & Data Vital Signs (Past 12 Hours) Vital Signs Temp Pulse Resp BP Pulse Ox 07/28/18 07:04 37.0 C 67 19 105/65 92 Laboratory Results Microbiology 07/27/18 09:25 Bronch Wash,Left Upper Lobe Gram Stain - Final 07/27/18 09:25 Bronch Wash,Left Upper Lobe Bronchoalveolar Lavage Culture - Preliminary Pin-point growth present, reincubating. 07/27/18 09:25 Bronch Wash,Left Upper Lobe Acid Fast Bacilli Smear - Final 07/25/18 15:25 Blood Aerobic Blood Culture - Preliminary No growth in Aerobic bottle after 48 hours. 07/25/18 15:25 Blood Anaerobic Blood Culture - Final 07/25/18 15:18 Blood Aerobic Blood Culture - Preliminary No growth in Aerobic bottle after 48 hours. 07/25/18 15:18 Blood Anaerobic Blood Culture - Preliminary No growth in Anaerobic bottle after 48 hours. 07/27/18 09:25 Bronch Wash,Left Upper Lobe Fungal Smear - Final 07/26/18 11:43 Blood Cryptococcal Antigen - Final 07/24/18 Unknown Axilla,Right Gram Stain - Final 07/24/18 Unknown Axilla,Right Wound Culture - Final Staph aureus MRSA 07/23/18 20:54 Blood Aerobic Blood Culture - Preliminary No growth in Aerobic bottle after 48 hours. 07/23/18 20:54 Blood Anaerobic Blood Culture - Preliminary No growth in Anaerobic bottle after 48 hours. 07/23/18 20:29 Blood Aerobic Blood Culture - Preliminary No growth in Aerobic bottle after 48 hours. 07/23/18 20:29 Blood Anaerobic Blood Culture - Preliminary No growth in Anaerobic bottle after 48 hours.
--- NOTE | 2018-07-28 16:30 | CT Scan Report ---
CT chest wo con CLINICAL HISTORY: 48 years-old Male presenting with pneumonia, chest pain, shortness of breath. TECHNIQUE: Multidetector CT imaging of the chest was performed without the use of intravenous contras t. IV contrast: None. One or more dose lowering techniques were used consistent with the principles o f ALARA (as low as reasonably achievable), including automatic exposure control, mA or kV adjustment to individual patient size, and/or use of iterative reconstruction. COMPARISON: CTA chest from 07/23/2018. CT DOSE (mGy.cm): The estimated cumulative dose is 387.11 mGy.cm. FINDINGS: Medical File Clerk topogram: Unremarkable. Soft tissues: Normal thyroid and thoracic inlet. Gynecomastia. Few prominent mediastinal lymph nodes, possibly reactive. The blair are suboptimally evaluated without intravenous contrast. Normal aorta. N ormal heart size. Small bilateral pleural effusions, left greater than right. No pericardial effusion . Upper abdomen normal. Lungs and airways: No pneumothorax. Central airways patent. Peribronchovascular bundle thickening. Pu lmonary arteries mildly enlarged relative to adjacent bronchi. Interlobular septal thickening evident most pronounced in the lower lobes and posterior apical left upper lobe. Prominent solid pulmonary n odules in the lower lobes the one on the right measuring 11 mm, which appears new from prior (series 4 image 164) and the second measuring 10 mm, previously 6 mm (series 4 image 179). Extensive lower lo be predominant dependent consolidation and volume loss likely extensive passive atelectasis in the se tting of the effusions. Peripheral groundglass nodule in the right upper lobe new from prior (series 4 image 127). A punctate nodule is evident in this region on prior exam. Extensive consolidation in t he posterior apical left upper lobe new from prior. Previously a cavitary nodule is noted in this reg ion, which is not clearly discernible on the current exam. Lesser degree of focal consolidation in th e posterior apical right upper lobe. Musculoskeletal: Degenerative changes of the spine. IMPRESSION: 1. Interval development of small bilateral pleural effusions with extensive passive atelectasis. 2. Interval development of consolidation in the posterior apical left upper lobe and to a lesser deg ree in the posterior apical right upper lobe. This obscures the prior cavitary left upper lobe nodule . The appearance is most concerning for or multifocal pneumonia. 3. Interval development of 11 mm solid nodule at the right lung base and increased size of a now 10 mm nodule at the left lung base. These are most likely infectious in etiology as neoplasm would be un expected to have this rate of growth. 4. Congestive change with volume overload. 5. Reactive mediastinal lymphadenopathy. Electronically signed by: Michael Mendoza M.D. 07/28/2018 4:29 PM
--- NOTE | 2018-07-28 17:40 | Progress Note ---
DATE: 07/28/2018 PULMONARY MEDICINE PROGRESS NOTE The patient was not available for my visit today. I was notified by Dr. Banuelos that the patient had remained febrile with continued pleuritic chest pain and because of poor dentition was concerned about this being a source of his lung infection. An ultrasound was performed of the neck and face. No evidence for phlebitis was noted, but the left apex of the chest was seen with clearly progressive infiltrate compared to 4-1/2 days ago from previous CAT scan. The patient did undergo bronchoscopic evaluation yesterday and cultures were planted from the left upper lobe with mucosal irregularity seen in that region. I am still awaiting results of the procedure, but it is a concern that in such a short period of time, the patient has consolidative infiltrate in the posterior aspect of the left pulmonary apex that appears progressive despite aggressive therapy. The patient's white count is 9200, H and H 12 and 35. No malignant cells were seen from the bronchial washings or brushings, but acute inflammatory cells were seen. Cultures are still pending. Additional serologies have been sent for with Lyme disease IgM antibody being equivocal and the IgG 41-kDa band being reactive. QuantiFERON Gold was negative. Other studies are pending at the time of this dictation.
[2018-07-28 19:42] LABS: CMV DNA Qnt Real Time PCR <200 IU/mL (<200); CMV DNA Quant PCR <2.30 log IU/mL (<2.30)
[2018-07-29] MEDS: IMIPENEM/CILASTATIN SODIUM 500 MG in DEXTROSE 5% 100 ML IV SCH ×2 (01:17→08:16)
[2018-07-29] MEDS ORDERED: VANCOMYCIN TROUGH ONE (03:30)
[2018-07-29] MEDS: VANCOMYCIN HCL 1,500 MG in SODIUM CHLORIDE 0.9% 500 ML IV SCH (04:05)
[2018-07-29] MEDS: LEVOTHYROXINE SODIUM 50 MCG TABLET PO SCH (06:27)
[2018-07-29] MEDS: NICOTINE 14 MG/24 HR PATCH TD SCH (08:17)
[2018-07-29] MEDS: ENOXAPARIN INJ 40 MG/0.4 ML SYR SQ SCH (08:17)
--- NOTE | 2018-07-29 10:27 | Infectious Disease Progress Nt ---
Date of Service July 29, 2018 Assessment & Plan (1) Cavitary lesion of lung: discussed with primary and pulm, will change abx to include better pulm coverage for ? MRSA pna although bronch culture negative. Agree with MRI brain especially with concern for IE due to poor dentition and PFO noted on echo (no vegetations noted). Will check legionella antigen and start emperic levaquin in the interim. Stop vanco and imipenem. blood cultures remain negative. 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 No HIV risk factors reported but agree with testing. doubt related to equivocal + lyme titer. Agree with CT surgery eval, has mediastinal nodes and cervical nodes, no malignant cells noted on bronch, likely reactive due to infectious process, may need additional cultures from biopsy. Subjective pt seen in followup, remains with cough and left sided pleuritic cp, repeat ct chest done last evening, showed progression of clementina consolidation and severe atelectasis. blood cultures remain negative, cyrpto antigen negative. Bronch routine culture with light normal ana laura only, afb and fungal smear negative. HIV pending. Denies any shelley or sob, no cough, no hemoptysis. no abd pain, no n/v/d. poor appetite, still with fatigue but anxious to go home. having astorga, MRI brain ordered, no veg seen on BOBY but does have PFO, ? emboli Review of Systems Review of Systems: All systems reviewed & are unremarkable except as noted in HPI & below Physical Exam Constitutional: WD/WN, vitals as above Eyes: PERRL, conjunctivae normal, anicteric sclerae ENMT: external ear and nose normal, oropharynx normal Neck: normal visual inspection Respiratory: normal respiratory effort, lungs clear to auscultation Cardiovascular: RRR, no murmur, no edema Gastrointestinal (Abdomen): normal bowel sounds, soft, nontender, no hepatosplenomegaly Musculoskeletal: no cyanosis or clubbing, extremities motor strength 5/5 Skin: no rashes, warm and dry Psychiatric: A+Ox3, euthymic affect Results & Data Vital Signs (Past 12 Hours) Vital Signs Temp Pulse Resp BP Pulse Ox 07/29/18 07:13 36.5 C 60 18 103/64 93 07/28/18 22:54 37.1 C 57 L 18 110/69 97 Laboratory Results Microbiology 07/27/18 09:25 Bronch Wash,Left Upper Lobe Gram Stain - Final 07/27/18 09:25 Bronch Wash,Left Upper Lobe Bronchoalveolar Lavage Culture - Final Light normal ana laura. 07/23/18 20:54 Blood Aerobic Blood Culture - Final No growth in Aerobic bottle after 5 days. 07/23/18 20:54 Blood Anaerobic Blood Culture - Final No growth in Anaerobic bottle after 5 days. 07/23/18 20:29 Blood Aerobic Blood Culture - Final No growth in Aerobic bottle after 5 days. 07/23/18 20:29 Blood Anaerobic Blood Culture - Final No growth in Anaerobic bottle after 5 days. 07/27/18 09:25 Bronch Wash,Left Upper Lobe Acid Fast Bacilli Smear - Final 07/25/18 15:25 Blood Aerobic Blood Culture - Preliminary No growth in Aerobic bottle after 48 hours. 07/25/18 15:25 Blood Anaerobic Blood Culture - Final 07/25/18 15:18 Blood Aerobic Blood Culture - Preliminary No growth in Aerobic bottle after 48 hours. 07/25/18 15:18 Blood Anaerobic Blood Culture - Preliminary No growth in Anaerobic bottle after 48 hours. 07/27/18 09:25 Bronch Wash,Left Upper Lobe Fungal Smear - Final 07/26/18 11:43 Blood Cryptococcal Antigen - Final 07/24/18 Unknown Axilla,Right Gram Stain - Final 07/24/18 Unknown Axilla,Right Wound Culture - Final Staph aureus MRSA
--- NOTE | 2018-07-29 10:48 | Hospitalist Progress Note ---
Date of Service July 29, 2018 Assessment & Plan (1) Septic pulmonary embolism: ? if source may be periodontal disease. Case studies reveal a connection between chronic periodontitis and SPE. There is cervical LAD seen on face/neck CT from today. CT and US neck did not reveal evidence of a suppurative thrombophlebitis or other clearcut vascular etiology for septic pulmonary emboli. So far, Lyme is negative, fungal studies negative, active and latent TB has been ruled out with negative AFB and negative quantiferon, respectively. Bronch washings reveal inflammatory changes on pathology specimen and gram stain reveals polymicrobial with speciation pending. KEVIN, RF and ANCA are still pending. Two sets of blood cultures are negative. Cont antibiotics with changes per ID, and will likely need a thorough odontogenic evaluation by an ENT physician as outpatient. With worsening CT findings suggesting progression of disease, will cont workup per additional testing ordered overnight and today including Legionella Ag, Histo Ag and HIV. With persistent headaches, although this is most likely related to withdrawal from caffeine and tobacco, in setting of PFO will order MRI brain. Of note, he has no visual changes or stroke like symtpoms and no seizure activity. Pulm considering open lung biopsy. Will await further recs. (2) Headache: Likely 2/2 withdrawal from caffeine and tobacco, however, in this setting MRI as above. Ibuprofen/APAP PRN (3) MRSA (methicillin resistant Staphylococcus aureus) infection: axillary MRSA positive infection. Vanc changed to Zyvox per ID (4) Hypothyroidism: Continue levothyroxine. (5) Depression: recently stopped Celexa as he couldn't tolerate it. (6) PFO (patent foramen ovale): discovered on BOBY, discussed this finding with the patient. No indication for closure at this time. (7) Tobacco abuse: uses smokeless tobacco and interested in getting more nicotine patches at discharge to help him wean off completely. (8) DVT prophylaxis: Lovenox Full Dispo-to home when medically stable. 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 Jennifer Banuelos DO [facility] Hospitalist Subjective Headaches reported daily, not improved. He is taking in much less caffeine and is off smokeless tobacco. Afebrile, chest pain unchanged. Eating, no nausea. No real change from admission. Denies SOB. CT chest yesterday afternoon revealed increased/new pulmonary nodules suggesting this is most likely infectious. Lyme negative-new orders for histo and HIV placed and pending. Review of Systems Review of Systems: All systems reviewed & are unremarkable except as noted in HPI & below Physical Exam Physical Exam: CONSTITUTIONAL: WNWD, vitals as above, generally well appearing EYES: normal conjunctivae, no scleral icterus, small vascular phenomena on eyelids is improved and almost resolved. This is flat and non-raised linear phenomena. ENT: MMM, poor decayed dentition, multiple nicotine stains to teeth, no obvious abscess or tenderness to gums. RESPIRATORY: clear to auscultation bilaterally, no crackles, rales or wheezes, normal respiratory effort CARDIOVASCULAR: regular rate and rhythm, S1 and 2 heard without murmurs, gallops or rubs, no JVD, no peripheral edema GASTROINTESTINAL: normal bowel sounds, soft, nontender, nondistended MUSCULOSKELETAL: strength 5/5 throughout, head is normocephalic and atraumatic, neck supple, normal palpation of chest wall without tenderness, +R axillary erythematous nodules that are tender SKIN: warm and dry, R axillary erythematous pustules present and improved, no prominent axillary LNs are palpable. NEUROLOGIC: CN 2-12 grossly intact, no gross focal deficit. PSYCHIATRIC: alert cooperative and oriented to person, place and time Results & Data Vital Signs (Past 12 Hours) Vital Signs Temp Pulse Resp BP Pulse Ox 07/29/18 07:13 36.5 C 60 18 103/64 93 07/28/18 22:54 37.1 C 57 L 18 110/69 97 Medications Administered Current Inpatient Medications Acetaminophen (Tylenol) 650 mg PO Q4H PRN PRN Reason: Pain or Fever Stop: 08/22/18 23:20 Last Admin: 07/26/18 16:21 Dose: 650 mg Documented by: Al Hydrox/Mg Hydrox/Simethicone (Maalox) 15 ml PO Q4H PRN PRN Reason: Dyspepsia Stop: 08/22/18 23:20 Diphenhydramine HCl (Benadryl Capsule) 25 mg PO Q6 PRN PRN Reason: itching or rash Stop: 08/25/18 17:07 Enoxaparin Sodium (Lovenox) 40 mg SQ QAM [facility] Stop: 08/25/18 08:59 Last Admin: 07/29/18 08:17 Dose: 40 mg Documented by: Ibuprofen (Motrin) 800 mg PO Q8H PRN PRN Reason: pain/fever Stop: 08/25/18 17:07 Last Admin: 07/28/18 09:25 Dose: 800 mg Documented by: Ioversol (Optiray 320 100ml) 94 ml IV ONCE PRN PRN Reason: Interaction Checking Stop: 08/01/18 08:28 Last Admin: 07/28/18 08:30 Dose: 94 ml Documented by: Levofloxacin (Levaquin) 500 mg PO DAILY@1100 [facility] Stop: 08/05/18 10:59 Levothyroxine Sodium (Synthroid) 50 mcg PO DAILYBB [facility] Stop: 08/25/18 06:29 Last Admin: 07/29/18 06:27 Dose: 50 mcg Documented by: Linezolid (Zyvox) 600 mg PO BID [facility] Stop: 08/05/18 10:29 Magnesium Hydroxide (Milk Of Magnesia) 30 ml PO Q12H PRN PRN Reason: Constipation Stop: 08/22/18 23:20 Last Admin: 07/28/18 09:36 Dose: 30 ml Documented by: Miscellaneous (Remove Nicoderm Patch) 1 ea N/A HS [facility] Stop: 08/23/18 20:59 Last Admin: 07/28/18 21:03 Dose: 1 ea Documented by: Nicotine (Nicoderm Cq) 14 mg TD QAM [facility] Stop: 08/23/18 12:14 Last Admin: 07/29/18 08:17 Dose: 14 mg Documented by: Ondansetron HCl (Zofran) 4 mg IV Q6H PRN PRN Reason: Nausea Stop: 08/22/18 23:20 Polyethylene Glycol (Miralax Powder Packet) 17 gm PO DAILY PRN PRN Reason: Constipation Stop: 08/22/18 23:20 Zolpidem Tartrate (Ambien) 5 mg PO HS PRN PRN Reason: Sleep Stop: 08/26/18 15:57 Last Admin: 07/27/18 22:01 Dose: 5 mg Documented by:
[2018-07-29 12:10] LABS: HSV Type 1 DNA Detected (Not Detected); HSV Type 2 DNA Not Detected (Not Detected)
[2018-07-29] MEDS: levoFLOXacin 500 MG TAB PO SCH (12:16)
[2018-07-29] MEDS: LINEZOLID 600 MG TAB PO SCH ×2 (12:16→20:54)
[2018-07-29 12:40] LABS: Anti Nuclear Antibody Screen NEGATIVE (NEGATIVE); Rheumatoid Factor < 14 IU/ML (<14)
--- NOTE | 2018-07-29 13:06 | Progress Note ---
DATE: 07/29/2018 PULMONARY MEDICINE PROGRESS NOTE Chart reviewed, the patient examined. SUBJECTIVE: Does not feel well, but does not appear toxic. Mildly congested. Still has some left-sided pleuritic discomfort. Dentition is as noted with chronic periodontitis suggested. Cervical lymphadenopathy is seen and because of the worsening infiltrate in the left apex, a dedicated CT scan was obtained. Cultures to date have been negative from the bronchial washings. He has a mild headache, which he says is not uncommon for him, but it is bilateral in nature and points to his temporal area and occipital region. He has no meningismus. He is tolerating his antibiotics and has been on IV vancomycin along with cefepime. PHYSICAL EXAMINATION: VITAL SIGNS: Blood pressure 103/64, pulse 60 and regular, respiratory rate 18, temperature 36.5, O2 sat 93% on room air. SKIN: Without lesion except under the right axilla, small little reddened areas of ____ previous abscess and/or skin reaction. HEENT: Atraumatic, normocephalic. PERRLA. LUNGS: Scattered rhonchi with dullness at the bases. CARDIAC: Regular rate and rhythm. I do not appreciate a gallop. ABDOMEN: Soft, scaphoid. No evidence for hepatosplenomegaly. EXTREMITIES: No pedal edema, clubbing or cyanosis. Negative Sangeeta signs. NEUROLOGIC: Negative. LABORATORY DATA: His white count is now 9200, H and H 12.1 and 35.5. He is afebrile. Serologies to date have been uninformative and some are pending. BOBY did not suggest valvular vegetations, especially on the aortic valve which could not be ruled out from the transthoracic echocardiogram. Chest CT done yesterday with comparison to 07/23 shows development of small bilateral pleural effusions with extensive passive atelectasis, interval development of consolidation in the posterior apical left upper lobe and to a lesser degree right upper lobe. He cannot make out the cavitary lesion in the left upper lobe at this point in time. There has been development of an 11 mm solid nodule at the right lung base, new 10 mm nodule in the left lung base. Congestive change with volume overload and reactive mediastinal lymphadenopathy noted. There are some small reactive lymph nodes in the neck, but nothing bulky. OVERALL ASSESSMENT: A 48-year-old with probable MRSA infection (girlfriend apparently developed MRSA infection with abscesses every 6 weeks), mild cervical lymphadenopathy noted with no definitive evidence of suppurative thrombophlebitis or subacute bacterial endocarditis and in the absence of bacteremia and a normal BOBY, this would be unlikely. and I discussed possibly changing IV Vancomycin to IV Zyvox as this might be more effective and consider open lung biopsy and/or thoracentesis, possible pleural biopsy if the patient's symptoms and clinical course do not improve. He does have a patent foramen ovale. Other serologies including HIV serology is currently pending. RAYMONDD
--- NOTE | 2018-07-29 14:21 | Magnetic Resonance Report ---
MR brain wo con HISTORY: 48 years-old Male acute headache with flulike symptoms COMPARISON: Head CT 04/10/2018 TECHNIQUE: Multiplanar multisequence MRI of the brain was obtained without the use of IV contrast. FINDINGS: Toter localizer images demonstrate no gross extracranial abnormality. The midline structures includin g the corpus callosum, brainstem, optic chiasm, pituitary and pineal glands appear unremarkable on th e sagittal T1 series. There is no restricted diffusion to suggest acute or subacute infarction. No acute intracranial hemorrhage, midline shift, abnormal extra-axial collection, hydrocephalus or in tracranial mass identified. There are a few punctate T2/FLAIR hyperintensities noted about the subcor tical frontal lobe, likely of no clinical significance. Major flow voids at the level of the skull ba se appear patent. Trace bilateral mastoid effusions. Mild mucosal thickening of the maxillary, fronta l and ethmoid sinuses. Skull, orbits and soft tissues are within normal limits. IMPRESSION: No acute intracranial abnormality. The above report was generated using voice recognition software. It may contain grammatical, syntax o r spelling errors. Electronically signed by: Jayesh Huff M.D. 07/29/2018 2:20 PM
[2018-07-29] MEDS: ZOLPIDEM TARTRATE 5 MG TAB PO PRN (22:11)
[2018-07-30] MEDS: LEVOTHYROXINE SODIUM 50 MCG TABLET PO SCH (05:50)
[2018-07-30 07:05] LABS: Hematocrit (blood only) 39.7 % (42-52); Hemoglobin 13.3 g/dL (14.0-18.0); Mean Corpuscular Hgb Conc 33.5 g/dL (32-36); Mean Corpuscular Volume 88.6 fL (80-100); Mean Platelet Volume 9.6 fL (7.4-10.4); Platelet Count 291 K/uL (130-400); RDW Standard Deviation 42.5 fL (36.4-46.3); Red Blood Count 4.48 M/uL (4.7-6.1); White Blood Count 9.55 K/uL (4.8-10.8)
[2018-07-30 07:32] LABS: BUN Creatinine Ratio 9.5 (10-20); Creatinine Clr Calc Pharmacy 104.1 ml/min; Est GFR (African American) 107.9; Est GFR (Non-African American) 93.1; Potassium 4.5 mmol/L (3.5-5.1)
[2018-07-30] MEDS: LINEZOLID 600 MG TAB PO SCH ×2 (08:11→20:25)
[2018-07-30] MEDS: NICOTINE 14 MG/24 HR PATCH TD SCH (08:11)
[2018-07-30] MEDS: ACETAMINOPHEN 325 MG TAB PO PRN (08:35)
--- NOTE | 2018-07-30 10:48 | Progress Note ---
DATE: 07/30/2018 Chart reviewed, the patient examined. SUBJECTIVE: The patient seems to have turned the corner. He does not look toxic. He is in no respiratory distress. He has occasional wheeze that is self-audible. Sputum is minimal. MRI scan yesterday showed no abnormality. He no longer has significant headache. OBJECTIVE: CURRENT VITAL SIGNS: Blood pressure 101/65, pulse 48 and regular, respiratory rate 18, temperature 36.7, O2 sats 94% on room air. SKIN: Without lesion. HEENT: Atraumatic, normocephalic. PERRLA. LUNGS: Some crackles left posterior lung field and dullness at the bases. CARDIAC: Regular rate and rhythm. I do not appreciate gallop. ABDOMEN: Soft, scaphoid. No evidence of hepatosplenomegaly. EXTREMITIES: No significant pedal edema, clubbing or cyanosis. NEUROLOGIC: Intact. No lateralizing signs. Cultures from the bronch washings have been unremarkable. OVERALL ASSESSMENT: A 48-year-old with multifocal pneumonia, suspected MRSA, pneumonitis with bilateral pleural effusions left greater than right and pulmonary nodulosis with early cavitating process. On current antibiotics, the patient does appear to be clinically improving. I did speak with Dr. Renee, who was to consider either thoracentesis or thoracoscopy with biopsy on Wednesday if the patient continued with ongoing symptomatology and without improvement in chest radiograph or clinical improvement. I think we can repeat a PA and lateral tomorrow and if there is improvement, consider holding off on any additional procedure. We will decide with Dr. Renee and primary service after reviewing the lab data and chest x-ray tomorrow.
[2018-07-30] MEDS: levoFLOXacin 500 MG TAB PO SCH (12:05)
[2018-07-30] MEDS: ENOXAPARIN INJ 40 MG/0.4 ML SYR SQ SCH (12:05)
[2018-07-30] MEDS: methylPREDNISolone 40 MG in SYRINGE 0 ML IV SCH ×2 (12:06→23:36)
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
[2018-07-30 14:10] LABS: Aspergillus Ag Index 0.06 (<0.50); Aspergillus Antigen, Serum Not Detected (Not Detected); Aspergillus Flavus Negative (Negative); Aspergillus Niger Negative (Negative)
[2018-07-30] MEDS: LEVALBUTEROL HCL 1.25 MG/3 ML NEB NEB SCH ×2 (14:13→19:04)
--- NOTE | 2018-07-30 15:37 | Hospitalist Progress Note ---
Date of Service July 30, 2018 Assessment & Plan (1) Febrile illness: Presented with fever and left pleuritic chest pain. CT demonstrated multiple poorly defined nodules including a cavitary lesion. Pulmonary lesions were new compared to CT performed 04/10/18. Radiographically, differential diagnosis included septic emboli, metastatic disease, fungal infection, Tammy's granulomatosis, rheumatoid nodules. Patient reports negative PPD in Oct 2017. Patient has history MRSA infection in groin treated several months ago. Currently has carbuncles right axilla with drainage. Considered MRSA bacteremia with septic emboli, but blood cultures negative. No IV drug abuse. Echo showed 1.1 cm linear mobile density near base of non-aortic valve coronary cusp. Initially received IV vancomycin and cefepime. Culture from draining carbuncle right axilla grew MRSA. BOBY performed on 07/25/2018 demonstrated a patent foramen ovale with a small right to left shunt, no vegetations or thrombi. Pulmonary Medicine & ID consulted. Bronchoscopy was performed by Dr. Calderon on 07/27/2018. Follow-up CT scan performed on 07/28/2018 demonstrated small bilateral pleural effusions, development of consolidation in the left upper lobe and posterior apical right upper lobe, 11 mm nodule at the right lung base, 10 mm nodule at the left lung base. Blood cultures remain negative. Coccidioides AB negative. Aspergillus galactomannan Ag from BAL and serum negative. Aspergillus serum AB negative. CMV PCR from BAL negative. HSV-1 PCR from BAL positive- but doubt viral infection based on radiographic appearance and response to anti-bacterial therapy. QuantiFERON-TB assay negative. Pt experienced headaches- MRI brain negative. Thoracic Surgery consultation with Dr. Otto was requested. Currently afebrile on linezolid and levofloxacin. Further evaluation per Pulmonary Medicine and Thoracic Surgery. (2) Hypothyroidism: Continue levothyroxine. (3) DVT prophylaxis: SCD's ordered. (4) Discharge planning issues: Anticipated discharge to home. Medical follow-up with Belen Uribe PA-C. Subjective Recheck for febrile illness. Patient seen in their room around 10:00. Feels better. Fever, sweats resolved. CP resolved. No further pain / drainage from right axilla Review of Systems: Constitutional- no fever. Cardiac- no anginal symptoms. Pulmonary- no cough or SOB. GI- no nausea, vomiting, diarrhea, melena, hematochezia. - no urinary symptoms. Otherwise, as noted above. Physical Exam Constitutional: no acute distress Respiratory: no respiratory distress Auscultation: lungs clear to auscultation bilaterally Cardiovascular: Rate/Rhythm: regular rate and regular rhythm Heart Sounds: no gallop, no murmur and no cardiac rub Vessels: no JVD Extremities: no calf tenderness and no edema Gastrointestinal (Abdomen): normal bowel sounds, soft, nontender, no hepatosplenomegaly Skin: no rashes, warm and dry Psychiatric: Orientation: alert and oriented x 3 Results & Data Vital Signs (Past 12 Hours) Vital Signs Temp Pulse Resp BP Pulse Ox 07/30/18 14:15 79 18 95 07/30/18 07:23 36.7 C 48 L 18 101/65 94 Laboratory Results Laboratory Results - last 24 hr 07/26/18 07/27/18 07/29/18 11:43 09:25 15:58 WBC RBC Hgb Hct MCV MCH MCHC RDW Std Deviation RDW Coeff of Richar Plt Count MPV Sodium Potassium Chloride Carbon Dioxide Anion Gap BUN Creatinine Est Cr Clr Drug Dosing Est GFR ( Amer) Est GFR (Non-Af Amer) BUN/Creatinine Ratio Glucose Calcium BAL A.galactomannan Ag Not Detected BAL A.galactomann Index 0.23 Urine Legionella Ag Pending Aspergillus flavus Ab Negative Aspergill fumigatus Ab Negative A. galactomannan Ag Not Detected A. galactomannan Ag Idx 0.06 Aspergillus niger Ab Negative Beta-(1,3)-D-Glucan <31 B-(1,3)-D-Glucan Intrp NEGATIVE 07/30/18 07/30/18 06:25 06:25 WBC 9.55 RBC 4.48 L Hgb 13.3 L Hct 39.7 L MCV 88.6 MCH 29.7 MCHC 33.5 RDW Std Deviation 42.5 RDW Coeff of Richar 13.0 Plt Count 291 MPV 9.6 Sodium 140 Potassium 4.5 Chloride 106 Carbon Dioxide 34 H Anion Gap 0 L BUN 9 Creatinine 0.96 Est Cr Clr Drug Dosing 104.1 Est GFR ( Amer) 107.9 Est GFR (Non-Af Amer) 93.1 BUN/Creatinine Ratio 9.5 L Glucose 87 Calcium 9.0 BAL A.galactomannan Ag BAL A.galactomann Index Urine Legionella Ag Aspergillus flavus Ab Aspergill fumigatus Ab A. galactomannan Ag A. galactomannan Ag Idx Aspergillus niger Ab Beta-(1,3)-D-Glucan B-(1,3)-D-Glucan Intrp Microbiology 07/27/18 09:25 Bronch Wash,Left Upper Lobe Gram Stain - Final 07/27/18 09:25 Bronch Wash,Left Upper Lobe Bronchoalveolar Lavage Culture - Final Light normal ana laura. 07/23/18 20:54 Blood Aerobic Blood Culture - Final No growth in Aerobic bottle after 5 days. 07/23/18 20:54 Blood Anaerobic Blood Culture - Final No growth in Anaerobic bottle after 5 days. 07/23/18 20:29 Blood Aerobic Blood Culture - Final No growth in Aerobic bottle after 5 days. 07/23/18 20:29 Blood Anaerobic Blood Culture - Final No growth in Anaerobic bottle after 5 days. 07/27/18 09:25 Bronch Wash,Left Upper Lobe Acid Fast Bacilli Smear - Final 07/25/18 15:25 Blood Aerobic Blood Culture - Preliminary No growth in Aerobic bottle after 48 hours. 07/25/18 15:25 Blood Anaerobic Blood Culture - Final 07/25/18 15:18 Blood Aerobic Blood Culture - Preliminary No growth in Aerobic bottle after 48 hours. 07/25/18 15:18 Blood Anaerobic Blood Culture - Preliminary No growth in Anaerobic bottle after 48 hours. 07/27/18 09:25 Bronch Wash,Left Upper Lobe Fungal Smear - Final 07/26/18 11:43 Blood Cryptococcal Antigen - Final 07/24/18 Unknown Axilla,Right Gram Stain - Final 07/24/18 Unknown Axilla,Right Wound Culture - Final Staph aureus MRSA
[2018-07-30] MEDS: ZOLPIDEM TARTRATE 5 MG TAB PO PRN (21:58)
[2018-07-31] MEDS: LEVALBUTEROL HCL 1.25 MG/3 ML NEB NEB SCH ×2 (01:28→07:20)
[2018-07-31] MEDS: LEVOTHYROXINE SODIUM 50 MCG TABLET PO SCH (06:07)
[2018-07-31] MEDS: NICOTINE 14 MG/24 HR PATCH TD SCH (07:59)
[2018-07-31] MEDS: LINEZOLID 600 MG TAB PO SCH (07:59)
[2018-07-31] MEDS: ENOXAPARIN INJ 40 MG/0.4 ML SYR SQ SCH (07:59)
--- NOTE | 2018-07-31 08:56 | XRay Report ---
XR chest 2V routine CLINICAL HISTORY: Pneumonia COMPARISON STUDY: 07/23/2018 FINDINGS: The heart is normal in size. There is blunting of the costophrenic angle suggesting trace e ffusions. There is parenchymal consolidation within the left lower lobe suspicious for a pneumonia. M inimal airspace opacities are also present within the left upper lung zone. Right basilar densities a re likely atelectatic[ IMPRESSION: 1. Left lower lobe airspace opacity suspicious for a pneumonia 2. Minimal left upper lung zone airspace opacities 3. Suspected trace effusions 4. Films subsequent to treatment are recommended in follow-up. Electronically signed by: Ned Wyman M.D. 07/31/2018 8:53 AM
--- NOTE | 2018-07-31 08:56 | XRay Report ---
XR chest decubs CLINICAL HISTORY: pleural effusions COMPARISON STUDY: 07/23/2018 FINDINGS: 4 views are provided for interpretation. There is a small freely layering left pleural effu joo and trace right pleural effusion[ IMPRESSION: Small freely layering left pleural effusion, and trace right pleural effusion. Electronically signed by: Ned Wyman M.D. 07/31/2018 8:54 AM
--- NOTE | 2018-07-31 10:04 | Progress Note ---
DATE: 07/31/2018 PULMONARY MEDICINE PROGRESS NOTE Chart reviewed, the patient examined. SUBJECTIVE: The patient feels well, minimal congestion. No pleuritic pain. He is afebrile and very much wants to go home. Seems to have turned the corner over the past 48 hours. A chest x-ray today including decubitus film shows very small freely layering left pleural effusion and trace right pleural effusion, but clearly better and marked resolution of previous known infiltrate, especially left upper lobe. OBJECTIVE: CURRENT VITAL SIGNS: Blood pressure 100/61, pulse 49 and regular, respiratory rate 18, temperature 36.6, O2 sat 92% on room air. SKIN: The carbuncles, right axilla appear to be fading. HEENT: Atraumatic, normocephalic. PERRLA. LUNGS: Improved aeration at both bases. CARDIAC: Regular rate and rhythm. I do not appreciate a gallop. ABDOMEN: Soft, scaphoid. EXTREMITIES: No pedal edema, clubbing, cyanosis. NEUROLOGICAL: Intact. OVERALL ASSESSMENT: This is a 48-year-old with multilobar pulmonary nodulosis and worsening left upper lobe infiltrate with bilateral pleural effusion, suspect one of the nodules were cavitating. I suspect MRSA pneumonitis,(fungal culture from BAL to be identified but probably not a pathogen i.e saphrophytic species ) although I cannot be sure we never documented evidence for by culture, but this would make the most sense. There is no evidence for either acute or subacute bacterial endocarditis and I would discharge the patient today on at least 7-10 days of additional Zyvox therapy and hold the patient out from going back to work at [facility] [employer] until seen in our clinic in 1-2 weeks for clearance. Will discuss with Dr. Chavis who is the primary attending and hospitalist on taking care of this patient. PRITI
--- NOTE | 2018-07-31 10:53 | Hospitalist Progress Note ---
Date of Service July 31, 2018 Assessment & Plan (1) Febrile illness: Presented with fever and left pleuritic chest pain. Initial CT demonstrated multiple poorly defined nodules including a cavitary lesion. Pulmonary lesions were new compared to CT performed 04/10/18. Radiographically, differential diagnosis included septic emboli, metastatic disease, fungal infection, Tammy's granulomatosis, rheumatoid nodules. Patient reported negative PPD in Oct 2017. History of MRSA infection in groin treated several months ago. Had carbuncles right axilla with drainage at time of admission. Considered MRSA bacteremia with septic emboli, but blood cultures negative. No IV drug abuse. Initially received IV vancomycin and cefepime. Echo showed 1.1 cm linear mobile density near base of non-aortic valve coronary cusp. Culture from draining carbuncle right axilla grew MRSA. BOBY performed on 07/25/2018 demonstrated a patent foramen ovale with a small right to left shunt, no vegetations or thrombi. Pulmonary Medicine & ID consulted. Bronchoscopy was performed by Dr. Calderon on 07/27/2018. Blood cultures remain negative. Coccidioides AB negative. Aspergillus galactomannan Ag from BAL and serum negative. Aspergillus serum AB negative. CMV PCR from BAL negative. HSV-1 PCR from BAL positive- but doubt viral infection based on radiographic appearance and response to anti-bacterial therapy. QuantiFERON-TB assay negative. Follow-up CT scan performed on 07/28/2018 demonstrated small bilateral pleural effusions, development of consolidation in the left upper lobe and posterior apical right upper lobe, 11 mm nodule at the right lung base, 10 mm nodule at the left lung base. Pt experienced headaches- MRI brain negative. HIV pending. Culture from bronch growing fungus, ID pending. Doubt clinical significance given improvement without antifungal therapy. [place] that patient probably had multifocal bacterial pneumonia from either (1) transient MRSA bacteremia or (2) periodontal disease. Currently afebrile on linezolid and levofloxacin x several days. Chest films today demonstrated LLL density, minimal LYNN density, small pleural effusions. Discharge on PO linezolid and levofloxacin to complete 14 days of MRSA and gram negative coverage. Nodular pulmonary densities probably of infectious etiology, but will need follow-up. Further evaluation / follow-up per Pulmonary Medicine. Follow-up with ID re: recurrent MRSA infections. Significant other has had recurrent skin infections with MRSA and is under the care of Dermatology. Dentition poor. Pt to arrange for follow-up with his dentist. (2) Multiple lung nodules: As discussed above. (3) MRSA (methicillin resistant Staphylococcus aureus) infection: As discussed above. (4) Hypothyroidism: Continue levothyroxine. (5) Tobacco abuse: Uses smokeless tobacco. Importance of quitting discussed and patient is motivated. (6) PFO (patent foramen ovale): Small PFO noted on BOBY 07/25/18. No indication for treatment or closure. (7) DVT prophylaxis: SCD's ordered. Ambulating. (8) Discharge planning issues: Discharge to home. Medical follow-up with Belen Uribe PA-C and Dr. Sharp. Pulmonary Medicine follow-up with Dr. Calderon. ID follow-up with Dr. Lao. Subjective Recheck for febrile illness. Patient seen in their room around 10:20. Doing well. Fever, sweats resolved. Minimal chest discomfort. No significant cough. No SOB. No further pain / drainage from right axilla Review of Systems: Constitutional- no fever. Cardiac- no anginal symptoms. Pulmonary- no cough or SOB. GI- no nausea, vomiting, diarrhea, melena, hematochezia. - no urinary symptoms. Otherwise, as noted above. Physical Exam Constitutional: no acute distress Respiratory: no respiratory distress Auscultation: lungs clear to auscultation bilaterally Cardiovascular: Rate/Rhythm: regular rate and regular rhythm Heart Sounds: no gallop, no murmur and no cardiac rub Vessels: no JVD Extremities: no calf tenderness and no edema Gastrointestinal (Abdomen): normal bowel sounds, soft, nontender, no hepatosplenomegaly Skin: no rashes, warm and dry Psychiatric: Orientation: alert and oriented x 3 Results & Data Vital Signs (Past 12 Hours) Vital Signs Temp Pulse Resp BP Pulse Ox 07/31/18 07:24 36.6 C 49 L 18 100/61 92 07/31/18 07:22 81 18 99 07/30/18 23:00 36.8 C 62 18 100/56 L 92 Laboratory Results Microbiology 07/27/18 09:25 Bronch Wash,Left Upper Lobe Fungal Smear - Final 07/27/18 09:25 Bronch Wash,Left Upper Lobe Fungal Culture - Preliminary Fungus- ident.to follow 07/27/18 09:25 Bronch Wash,Left Upper Lobe Acid Fast Bacilli Smear - Final 07/27/18 09:25 Bronch Wash,Left Upper Lobe Acid Fast Bacilli Culture - Preliminary No Acid-Fast Bacilli Isolated - Report 1, Additional Report to Follow. 07/25/18 15:25 Blood Aerobic Blood Culture - Final No growth in Aerobic bottle after 5 days. 07/25/18 15:25 Blood Anaerobic Blood Culture - Final 07/25/18 15:18 Blood Aerobic Blood Culture - Final No growth in Aerobic bottle after 5 days. 07/25/18 15:18 Blood Anaerobic Blood Culture - Final No growth in Anaerobic bottle after 5 days. 07/27/18 09:25 Bronch Wash,Left Upper Lobe Gram Stain - Final 07/27/18 09:25 Bronch Wash,Left Upper Lobe Bronchoalveolar Lavage Culture - Final Light normal ana laura. 07/23/18 20:54 Blood Aerobic Blood Culture - Final No growth in Aerobic bottle after 5 days. 07/23/18 20:54 Blood Anaerobic Blood Culture - Final No growth in Anaerobic bottle after 5 days. 07/23/18 20:29 Blood Aerobic Blood Culture - Final No growth in Aerobic bottle after 5 days. 07/23/18 20:29 Blood Anaerobic Blood Culture - Final No growth in Anaerobic bottle after 5 days. 07/26/18 11:43 Blood Cryptococcal Antigen - Final 07/24/18 Unknown Axilla,Right Gram Stain - Final 07/24/18 Unknown Axilla,Right Wound Culture - Final Staph aureus MRSA
--- NOTE | 2018-07-31 12:05 | Progress Note ---
DATE: 07/31/2018 Mr. Morris was seen today and he feels "great." X-ray showed very little in the way of fluid and he had decubitus films. He sounds very good on exam. At this point, I agree with Dr. Calderon that the patient should be allowed to be discharged and Dr. Calderon will follow him up in the office. I will not need to see the patient unless Dr. Calderon feels that a lung biopsy should be offered. I will see him back if necessary.
[2018-07-31] MEDS: levoFLOXacin 500 MG TAB PO SCH (12:24)
[2018-07-31] MEDS: methylPREDNISolone 40 MG in SYRINGE 0 ML IV SCH (12:25)
--- NOTE | 2018-07-31 20:11 | Discharge Summary ---
Date of Service Date of Admission: 07/23/18 Date of Discharge: 07/31/18 Admission HPI Per Admitting Provider This is a 48 yr old M who has a significant PMH of hypothyroidism, depression, anx, gout who presents to [facility] ED secondary to chest pain that began at 3 pm. Patient was at work when symptoms started. Abrupt onset of sharp left sided chest pain that radiated to L axillary region, sharp, 10/10, worse with deep breath and cough, improved with ASA and ibuprofen. Never experienced in past. Current pain 3/10. Further complains of feeling feverish, chills, lightheaded, dizzy, non productive cough that started today. He elicits dizziness and lightheaded are not, "abnormal for me." Overall past week has just not been feeling well, general malaise, attributed to working alot. Further complains of lesions in arm pit that are red and painful. Noticed yesterday. Hx of similar l esion in December, R gailin, tx with doxycycline and resolved. +hx of MRSA. Denies sweats, night sweats, weight loss, hemoptysis, sob at rest, shelley, n/v/d, change in bowel or urinary habits. Appetite has been normal. 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 Last travel was to [place] in March. He does not take any of his medications, stopped them few months ago including his thyroid medication. Denies FH of rheumatologic conditions, Lung disease, Lung cancer. Denies personal hx of drug abuse or IVDA. Admission Exam Per Admitting Provider Gen: WD/WN, M, Flushed, appears in pain, NAD, sitting up in bed, blunted affect, conversing easily Head: Normocephalic, Atraumatic Eyes: Sclera normal, no conjunctival injection, PERRLA, EOMI ENT: Gross hearing intact, normal pharynx, mucous membranes moist Neck: supple, no adenopathy, No JVD, no bruit, Resp: Clear to auscultation b/l, no wheeze, rales, rhonchi. 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 Extremities: No edema bilaterally Skin: warm, moist, 2 papular erythematous lesions to R axilla, tender to palpation, firm, no adenopathy noted, no rash, negative turgor, cap refill < 2sec Neuro: Alert and oriented x 3, speech normal, good mood/affect, cran nerve 2-12 intact grossly : deferred Principal Diagnosis multifocal pneumonia nodular pulmonary densities OTHER ACUTE / NEW DIAGNOSES: MRSA carbuncle right axilla patent PFO Discharge Data Allergies Allergy/AdvReac Type Severity Reaction Status Date / Time cefepime Allergy Intermediate rash on Verified 07/26/18 17:14 chest Penicillins Allergy Intermediate `rash on Verified 07/26/18 17:14 chest Consultations 07/23/18 20:20 ED Decision to Admit Stat 07/23/18 23:21 Consult Pulmonology Routine 07/25/18 07:00 Consult Infectious Diseases Routine 07/25/18 08:56 Consult Cardiology Routine 07/25/18 09:47 Consult Anesthesiology Routine 07/29/18 18:54 Consult Thoracic Surgery Routine Procedures Performed Operation Date: 07/25/18 15:30 Actual Procedures p Transesophageal Echo w/Anesthesia - Lisandro Orona DO Operation Date: 07/27/18 09:00 Actual Procedures p Bronchoscopy Radiology - Nate Calderon MD Ordered Studies 07/23/18 18:54 CT angio chest PE protocol Stat 07/27/18 16:47 US venous doppler UE BI Urgent 07/28/18 07:51 CT facial bones w con Routine CT soft tissue neck w con Routine 07/28/18 15:39 CT chest wo con Routine 07/29/18 10:42 MR brain wo con Urgent Hospital Course (1) Febrile illness: Presented with fever and left pleuritic chest pain. Initial CT demonstrated multiple poorly defined nodules including a cavitary lesion. Pulmonary lesions were new compared to CT performed 04/10/18. Radiographically, differential diagnosis included septic emboli, metastatic disease, fungal infection, Tammy's granulomatosis, rheumatoid nodules. Patient reported negative PPD in Oct 2017. History of MRSA infection in groin treated several months ago. Had carbuncles right axilla with drainage at time of admission. Considered MRSA bacteremia with septic emboli, but blood cultures negative. No IV drug abuse. Initially received IV vancomycin and cefepime. Echo showed 1.1 cm linear mobile density near base of non-aortic valve coronary cusp. Culture from draining carbuncle right axilla grew MRSA. BOBY performed on 07/25/2018 demonstrated a patent foramen ovale with a small right to left shunt, no vegetations or thrombi. Pulmonary Medicine & ID consulted. Bronchoscopy was performed by Dr. Calderon on 07/27/2018. Blood cultures remain negative. Coccidioides AB negative. Aspergillus galactomannan Ag from BAL and serum negative. Aspergillus serum AB negative. CMV PCR from BAL negative. HSV-1 PCR from BAL positive- but doubt viral infection based on radiographic appearance and response to anti-bacterial therapy. QuantiFERON-TB assay negative. Follow-up CT scan performed on 07/28/2018 demonstrated small bilateral pleural effusions, development of consolidation in the left upper lobe and posterior apical right upper lobe, 11 mm nodule at the right lung base, 10 mm nodule at the left lung base. Pt experienced headaches- MRI brain negative. HIV pending. Culture from bronch growing fungus, ID pending. Doubt clinical significance given improvement without antifungal therapy. Galt that patient probably had multifocal bacterial pneumonia from either (1) transient MRSA bacteremia or (2) periodontal disease. Temp and leukocytosis resolved. Chest films day of discharged demonstrated LLL density, minimal LYNN density, small pleural effusions. Discharge on PO linezolid and levofloxacin to complete 14 days of MRSA and gram negative coverage. Nodular pulmonary densities probably of infectious etiology, but will need follow-up. Further evaluation / follow-up per Pulmonary Medicine. Follow-up with ID re: recurrent MRSA infections. His significant other has had recurrent skin infections with MRSA and is under the care of Dermatology. Dentition poor. Pt to arrange for follow-up with his dentist. (2) Multiple lung nodules: As discussed above. (3) MRSA (methicillin resistant Staphylococcus aureus) infection: As discussed above. (4) Hypothyroidism: Continue levothyroxine. (5) Tobacco abuse: Uses smokeless tobacco. Importance of quitting discussed and patient is motivated. (6) PFO (patent foramen ovale): Small PFO noted on BOBY 07/25/18. No indication for treatment or closure. (7) DVT prophylaxis: SCD's ordered. Ambulating. (8) Discharge planning issues: Discharged to home. Medical follow-up with Belen Uribe PA-C and Dr. Sharp. Pulmonary Medicine follow-up with Dr. Calderon. ID follow-up with Dr. Lao. Total Time Total Time Spent Total Time Spent (In Minutes): 45 Discharge Plan Discharge Items Patient Disposition: Home - Self-Care Reason For Visit: chest pain Discharge Diagnosis: pneumonia abnormal CT scan of chest MRSA infection right armpit Condition: Good Discharge Goals: Decrease discomfort and Improve disease control Activity: As commented below Activity Comment: gradually increase activity as tolerated Non-emergency contact: Primary Care Provider, Hospitalist and Agricultural Real Estate Agent Call non-emergency contact if: you have any medication questions, your symptoms worsen and you have a fever Follow-up/Referrals: Nate Calderon MD [Physician] - (Please call office for appointment.) Courtney Lao DO [Physician] - (Please call office for appointment.) Dhaval Sharp MD [Physician] - (08/02/2018 11:20 AM Dhaval Sharp MD) Belen Uribe PA-C [Primary Care Provider] - Diet: Heart Healthy Addtl Provider Instructions: MEDICATIONS CHANGES: Take antibiotics until gone to complete course of treatment. linezolid (Zyvox) 600 mg twice a day (read information regarding food and drug interactions) levofloxacin (Levaquin) 750 mg daily SUMMARY OF TEST RESULTS: Blood cultures were negative. Culture from right armpit grew MRSA. Other tests looking for other infections like TB, fungal infections, etc were not revealing. CT scan showed spots in lungs, pneumonia, and some fluid. Repeat chest x-ray on 07/31/18 looked better. RECOMMENDATIONS FOR FOLLOW-UP: Please call Dr. Calderon's office to arrange for Pulmonary Medicine follow-up. He will order follow-up x-rays or CT scans. Please call Dr. Lao's office to arrange for Infectious Disease follow-up regarding MRSA. Please make an appointment to see your dentist for dental care. OTHER INSTRUCTIONS: Please stop using tobacco products. Nicotine products like nicotine patches or gum are available without a prescription. Seek medical attention if you have: * fever, chills, sweats * chest pain or trouble breathing * abdominal pain, nausea, vomiting * diarrhea, dark stools or bloody stools * any unanswered questions or concerns Call 911 if symptoms are severe. Please take good care of yourself. Call if you have any questions or problems. My cell # is [phone]. You can also reach a [facility] hospitalist on duty at [facility] 24 hours a day by calling [phone]. Prescriptions: New linezolid 600 mg Tablet 600 mg PO BID Qty: 12 RF: 0 levofloxacin 750 mg tablet 750 mg PO DAILY 6 Days Qty: 6 RF: 0 Continued levothyroxine 50 mcg Tablet 50 mcg PO DAILY RF: 0 Stand-Alone Forms: Call Back Authorization, My [facility], Work/School Release (Inpt) Krames/Other Patient Handouts: Linezolid Oral tablet Discharge Orders: Discharge Order (Routine); Ordered 07/31/18 Ordered By: Gurjit Chavis Admission Data Admit Date/Time: 07/23/18 20:45 Attending Provider: Gurjit Chavis Admit Provider: Brad Monzon Primary Care Provider: Belen Uribe Other Providers: Brad Monzon ; Richard Choi ; Morgan Chávez ; Lisandro Orona ; Felicity Arana ; Dasha Simmons ; Renay Soriano ; Analilia Bhatia ; Arabella Cao ; Massiel Andrade ; Levi Hurley ; Ever Colon ; Nixon Snow ; Oscar Noyola ; Dorothy Noyola ; Cristobal Dooley ; Courtney Butler ; Eddie Goldstein ; Jared Batres ; Polo Shelby ; Ye Wilkinson ; Elijah Wynne ; Renu Trent ; Dhaval Momin ; Evie Mendez ; Margret Momin ; Santino Mckay ; Shelia Kaur ; Lul Sierra ; Marj Rashid ; Santa Mcmahon ; German Zavala ; Kaykay Tafoya ; Isela Chu ; Lilly Chan ; Mary Chi ; Kj Chi V ; Woo Saleem ; Renay Guaman ; Xavi Canales ; Maria Ines Crouch V ; Kirk Marti ; Tabatha Zamudio ; Ruth Mederos ; Vanessa Guaman ; Kj Mullins ; Vasu Trent ; Katie Mcmahan ; Lilly Orta ; Nixon Avila ; Lucille Alvarez ; Gurjit Wynne ; Linda Aguilar ; Christiano Braswell ; Kj Renee ; Jennifer Banuelos Service: Medical Other Interventions: Discharge Summary Assessment (RN) Last Done: 07/31/18 12:03 DC Date/Time DO NOT enter until pt leaves facility: 07/31/18 13:42
[2018-08-03 12:42] LABS: Coccidioides Ab, ID Negative (Negative); HIV 1 RNA PCR Copies/ML <20 NOT DETECTED COPIES/mL (<20); HIV-1 RNA Log Copies/mL <1.30 NOT DETECTED (<1.30)
[2018-08-03 18:34] LABS: Mycoplasma pneumoniae Ab, IgG 2.61 (<=0.90)
== END 2018-07-31 13:42 | disposition home or self-care (01) | DRG 853 ==
LOC: ED 18:40 → SUATTDRO 20:45 → 2W 20:45